=== PATIENT | female | born 1970 | race Caucasian/White ===

== ENCOUNTER → 2016-08-17 | Outpatient (CLI) | payer BC ==
[2016-08-17 08:21] LABS: ABSOLUTE BASOPHILS # (AUTO) 0.1 10^3/uL (0.0-0.2); ABSOLUTE EOSINOPHILS # (AUTO) 0.3 10^3/uL (0.0-0.6); ABSOLUTE LYMPHOCYTES (AUTO) 2.4 10^3/uL (0.5-4.7); ABSOLUTE MONOCYTES (AUTO) 0.5 10^3/uL (0.1-1.4); ABSOLUTE NEUT (AUTO) 5.7 10^3/uL (1.7-8.2); BASOPHILS % (AUTO) 0.6 % (0-2); HEMATOCRIT 44.7 % (36.0-47.0); HEMOGLOBIN 14.4 g/dL (12.0-15.5); HGB HCT DIFFERENCE -1.5; LYMPHOCYTES % (AUTO) 26.8 % (13-45); MEAN CORPUSCULAR HEMOGLOBIN 28.1 pg (27.0-33.4); MEAN CORPUSCULAR HGB CONC 32.3 g/dL (32.0-36.0); MEAN CORPUSCULAR VOLUME 87 fl (80-97); MONOCYTES % (AUTO) 5.6 % (3-13); RED BLOOD COUNT 5.14 10^6/uL (3.72-5.28); RED CELL DISTRIBUTION WIDTH 14.6 % (11.5-14.0); WHITE BLOOD COUNT 8.9 10^3/uL (4.0-10.5)
[2016-08-17 08:36] LABS: ANION GAP 7 (5-19); BLOOD UREA NITROGEN 19 mg/dL (7-20); CALCIUM 9.4 mg/dL (8.4-10.2); CARBON DIOXIDE 27 mmol/L (22-30); CHLORIDE 106 mmol/L (98-107); CHOLESTEROL 125.65 mg/dL (0-200); CREATININE RESULT 0.92 mg/dL (0.52-1.25); Direct HDL 53 mg/dL (>40); GLUCOSE 85 mg/dL (75-110); POTASSIUM 4.6 mmol/L (3.6-5.0); SODIUM 139.7 mmol/L (137-145); TRIGLYCERIDES 175 mg/dL (<150)
[2016-08-17 08:47] LABS: DIRECT LDL 54 mg/dL (<100)
[2016-08-17 09:03] LABS: THYROID STIMULATING HORMONE 1.89 uIU/mL (0.47-4.68)
== END ==
LOC: OD 07:19
PROVIDERS: ATTEND Nurse Practitioner Psychiatric/Mental Health
DX: F25.0 Schizoaffective disorder, bipolar type (principal)
CPT/HCPCS: 36415; 80048; 80061; 83036; 84439; 84443; 85025

== ENCOUNTER → 2016-09-02 | Outpatient (CLI) | payer BC | LOC: OD 12:35 | PROVIDERS: ATTEND Physician Assistant | DX: M25.562 Pain in left knee (principal) ==

== ENCOUNTER 2016-09-14 16:52 | Emergency (ER) | payer BC ==
--- NOTE | 2016-09-14 18:10 | ER Document Report ---
ED Medical Screen (RME) - General Stated Complaint: BLOOD IN STOOL,RIGHT SIDE PAIN Time seen by provider: 18:08 Mode of Arrival: Ambulatory Information source: Patient Notes: 45-year-old female presents to ED for left upper abdominal pain. She had an ultrasound done by her primary physician today at [facility] she states that they she was told she has to cyst on her spleen. He also the primary care doctor also did a rectal exam which was positive for blood. She states that she saw him that the pain is gotten worse. She is also nauseated. Patient denies diarrhea. I have greeted and performed a rapid initial assessment of this patient. A comprehensive ED assessment and evaluation of the patient, analysis of test results and completion of medical decision making process will be conducted by an additional ED providers. TRAVEL OUTSIDE OF THE [place] IN LAST 30 DAYS: No - Related Data Allergies/Adverse Reactions: cephalexin monohydrate [From Keflex] Allergy (Intermediate, Verified 05/30/16 02 :01) DIFFICULTY BREATHING,SUNBURN TYPE RASH lamotrigine [From Lamictal] Allergy (Verified 05/30/16 02:01) UNKNOWN Penicillins Allergy (Verified 05/30/16 02:01) RASH Past Medical History - Past Medical History Cardiac Medical History: Reports: Hx Hypertension - HX OF Denies: Hx Coronary Artery Disease, Hx Heart Attack Pulmonary Medical History: Reports: Hx Asthma, Hx Pneumonia Denies: Hx Bronchitis, Hx COPD, Hx Tuberculosis Neurological Medical History: Denies: Hx Cerebrovascular Accident, Hx Seizures Endocrine Medical History: Reports: Hx Diabetes Mellitus Type 2 Musculoskeltal Medical History: Denies Hx Arthritis Psychiatric Medical History: Reports: Hx Bipolar Disorder, Hx Schizophrenia Past Surgical History: Reports: Hx Cholecystectomy, Hx Gynecologic Surgery - right ovary, Hx Tonsillectomy, Hx Tubal Ligation. Denies: Hx Hysterectomy - Immunizations Hx Diphtheria, Pertussis, Tetanus Vaccination: No Physical Exam - Vital signs Vitals: Temp Pulse Resp BP Pulse Ox 98.1 F 65 20 114/77 98 09/14/16 18:05 09/14/16 18:05 09/14/16 18:05 09/14/16 18:05 09/14/16 18:05 Course - Vital Signs Vital signs: Temp Pulse Resp BP Pulse Ox 98.1 F 65 20 114/77 98 09/14/16 18:05 09/14/16 18:05 09/14/16 18:05 09/14/16 18:05 09/14/16 18:05
[2016-09-14] MEDS ORDERED: ACETAMINOPHEN 325 MG TABLET PO ONE (19:03)
[2016-09-14 20:12] LABS: ABSOLUTE BASOPHILS # (AUTO) 0.1 10^3/uL (0.0-0.2); ABSOLUTE EOSINOPHILS # (AUTO) 0.2 10^3/uL (0.0-0.6); ABSOLUTE LYMPHOCYTES (AUTO) 3.4 10^3/uL (0.5-4.7); ABSOLUTE MONOCYTES (AUTO) 0.6 10^3/uL (0.1-1.4); ABSOLUTE NEUT (AUTO) 5.8 10^3/uL (1.7-8.2); BASOPHILS % (AUTO) 0.5 % (0-2); EOSINOPHILS % (AUTO) 1.7 % (0-6); HEMATOCRIT 44.5 % (36.0-47.0); HEMOGLOBIN 14.7 g/dL (12.0-15.5); HGB HCT DIFFERENCE -0.4; LYMPHOCYTES % (AUTO) 33.9 % (13-45); MEAN CORPUSCULAR HEMOGLOBIN 28.4 pg (27.0-33.4); MEAN CORPUSCULAR VOLUME 86 fl (80-97); MONOCYTES % (AUTO) 6.1 % (3-13); RED BLOOD COUNT 5.16 10^6/uL (3.72-5.28); RED CELL DISTRIBUTION WIDTH 14.1 % (11.5-14.0); SEGMENTED NEUTROPHILS % (AUTO) 57.8 % (42-78); WHITE BLOOD COUNT 10.1 10^3/uL (4.0-10.5)
[2016-09-14 20:29] LABS: APPEARANCE,URINE CLEAR; BILIRUBIN,URINE NEGATIVE (NEGATIVE); GLUCOSE, URINE >=500 mg/dL (NEGATIVE); KETONES,URINE NEGATIVE (NEGATIVE); LEUKOCYTE ESTERASE,URINE NEGATIVE (NEGATIVE); NITRITE,URINE NEGATIVE (NEGATIVE); PROTEIN,URINE NEGATIVE (NEGATIVE); URINE SPECIFIC GRAVITY 1.013; UROBILINOGEN,URINE NEGATIVE mg/dL (<2.0)
[2016-09-14 20:30] LABS: ALANINE AMINOTRANSFERASE 28 U/L (9-52); ALBUMIN 4.4 g/dL (3.5-5.0); ALKALINE PHOSPHATASE 71 U/L (38-126); ANION GAP 13 (5-19); ASPARTATE AMINO TRANSFERASE 21 U/L (14-36); BILIRUBIN,DIRECT 0.3 mg/dL (0.0-0.4); BILIRUBIN,TOTAL 0.8 mg/dL (0.2-1.3); BLOOD UREA NITROGEN 19 mg/dL (7-20); CALCIUM 9.9 mg/dL (8.4-10.2); CARBON DIOXIDE 23 mmol/L (22-30); CHLORIDE 105 mmol/L (98-107); CREATININE RESULT 0.91 mg/dL (0.52-1.25); GLUCOSE 73 mg/dL (75-110); POTASSIUM 4.4 mmol/L (3.6-5.0); SODIUM 141.4 mmol/L (137-145); TOTAL PROTEIN 7.1 g/dL (6.3-8.2)
[2016-09-15] MEDS ORDERED: MAG HYDROX/AL HYDROX/SIMETH SUSP 30 ML UDCUP PO ONE (00:14)
[2016-09-15] MEDS ORDERED: ONDANSETRON 4 MG TAB.RAPDIS PO ONE (00:14)
[2016-09-15] MEDS ORDERED: FAMOTIDINE 20 MG TABLET PO ONE (00:14)
[2016-09-15] MEDS ORDERED: DICYCLOMINE HCL 10 MG CAPSULE PO ONE (00:14)
[2016-09-15] MEDS ORDERED: LIDOCAINE 2% VISCOUS SOLN 20 ML UDCUP PO ONE (00:15)
--- NOTE | 2016-09-15 00:15 | ER Document Report ---
ED General - General Chief Complaint: Abdominal Pain Stated Complaint: BLOOD IN STOOL,RIGHT SIDE PAIN Mode of Arrival: Ambulatory Information source: Patient TRAVEL OUTSIDE OF THE [place] IN LAST 30 DAYS: No - HPI Notes: Patient's a 45-year-old female status post ventral hernia repair February 2016 comes in with report of a 4 month history of abdominal pain left upper quadrant. The patient was seen 3 months ago had a CT scan of the abdomen and pelvis which was negative for the same pain. She saw her regular practitioner today who performed an ultrasound that showed small cysts upon the spleen but was otherwise negative. The patient reports the pain is intermittent and crampy. She is unaware of any specific correlation to meals or 2 bowel movements. She reports no constipation or diarrhea and states her bowel movements are happening daily. She reports no fever or chills she denies any significant back pain she reports no chest pain. - Related Data Allergies/Adverse Reactions: cephalexin monohydrate [From Keflex] Allergy (Intermediate, Verified 09/14/16 18 :09) DIFFICULTY BREATHING,SUNBURN TYPE RASH lamotrigine [From Lamictal] Allergy (Verified 09/14/16 18:09) UNKNOWN Penicillins Allergy (Verified 09/14/16 18:09) RASH Past Medical History - General Information source: Patient - Social History Smoking Status: Never Smoker Chew tobacco use (# tins/day): No Frequency of alcohol use: None Drug Abuse: None Family History: Reviewed & Not Pertinent, DM Patient has suicidal ideation: No Patient has homicidal ideation: No - Past Medical History Cardiac Medical History: Reports: Hx Hypertension - HX OF Denies: Hx Coronary Artery Disease, Hx Heart Attack Pulmonary Medical History: Reports: Hx Asthma, Hx Pneumonia Denies: Hx Bronchitis, Hx COPD, Hx Tuberculosis Neurological Medical History: Denies: Hx Cerebrovascular Accident, Hx Seizures Endocrine Medical History: Reports: Hx Diabetes Mellitus Type 2 Renal/ Medical History: Denies: Hx Peritoneal Dialysis Musculoskeltal Medical History: Denies Hx Arthritis Psychiatric Medical History: Reports: Hx Bipolar Disorder, Hx Schizophrenia Past Surgical History: Reports: Hx Cholecystectomy, Hx Gynecologic Surgery - right ovary, Hx Tonsillectomy, Hx Tubal Ligation. Denies: Hx Hysterectomy - Immunizations Hx Diphtheria, Pertussis, Tetanus Vaccination: No Hx Pneumococcal Vaccination: 04/29/13 Review of Systems - Review of Systems Notes: REVIEW OF SYSTEMS: CONSTITUTIONAL : Denies fever, chills, or sweats. Denies recent illness. EENT: Denies eye, ear, throat, or mouth pain or symptoms. Denies nasal or sinus congestion or discharge. Denies throat, tongue, or mouth swelling or difficulty swallowing. CARDIOVASCULAR: Denies chest pain. Denies palpitations or racing or irregular heart beat. Denies ankle edema. RESPIRATORY: Denies cough, cold, or chest congestion. Denies shortness of breath, difficulty breathing, or wheezing. GASTROINTESTINAL: Denies vomiting, or diarrhea. Denies blood in vomitus, stools , or per rectum. Denies black, tarry stools. Denies constipation. GENITOURINARY: Denies difficulty urinating, painful urination, burning, frequency, blood in urine, or discharge. FEMALE GENITOURINARY: Denies vaginal bleeding, heavy or abnormal periods, irregular periods. Denies vaginal discharge or odor. MUSCULOSKELETAL: Denies back or neck pain or stiffness. Denies joint pain or swelling. SKIN: Denies rash, lesions or sores. HEMATOLOGIC : Denies easy bruising or bleeding. LYMPHATIC: Denies swollen, enlarged glands. NEUROLOGICAL: Denies confusion or altered mental status. Denies passing out or loss of consciousness. Denies dizziness or lightheadedness. Denies headache. Denies weakness or paralysis or loss of use of either side. Denies problems with gait or speech. Denies sensory loss, numbness, or tingling. Denies seizures. PSYCHIATRIC: Denies anxiety or stress. Denies depression, suicidal ideation, or homicidal ideation. ALL OTHER SYSTEMS REVIEWED AND NEGATIVE. Dictation was performed using [employer] voice recognition software Physical Exam - Vital signs Vitals: Temp Pulse Resp BP Pulse Ox 98.1 F 65 20 114/77 98 09/14/16 18:05 09/14/16 18:05 09/14/16 18:05 09/14/16 18:05 09/14/16 18:05 - Notes Notes: PHYSICAL EXAMINATION: GENERAL: Well-appearing, well-nourished and in no acute distress. HEAD: Atraumatic, normocephalic. EYES: Pupils equal round and reactive to light, extraocular movements intact, conjunctiva are normal. ENT: Nares patent, oropharynx clear without exudates. Moist mucous membranes. NECK: Normal range of motion, supple without lymphadenopathy LUNGS: Breath sounds clear to auscultation bilaterally and equal. No wheezes rales or rhonchi. HEART: Regular rate and rhythm without murmurs ABDOMEN: Morbidly obese. Patient has laparoscopy scars which are very well- healed. she describes her pain left upper quadrant, but I can distract her way from the pain with conversation. There is no rebound or guarding no pulsatile mass no gross hepatosplenomegaly. Female : deferred Musculoskeletal: Normal range of motion, no pitting or edema. No cyanosis. NEUROLOGICAL: Cranial nerves grossly intact. Normal speech, normal gait. Normal sensory, motor exams PSYCH: Normal mood, normal affect. SKIN: Warm, Dry, normal turgor, no rashes or lesions noted. Course - Re-evaluation Re-evalutation: 09/15/16 00:18 09/15/16 02:50 Patient given GI cocktail and Pepcid and Bentyl and Zofran with adequate relief of her discomfort. Repeat abdominal exam showed no significant tenderness and she felt stable for discharge. The patient has had CT scan during the time that she has had the pain and the CT scan was negative. I see no utility of performing the CT scan again, when symptoms fit more so with a gastritis that is probably worse and she's had 2 weeks of Mobic anti-inflammatory therapy. She is advised to stop the Mobic. - Vital Signs Vital signs: Temp Pulse Resp BP Pulse Ox 98.1 F 65 20 114/77 98 09/14/16 18:05 09/14/16 18:05 09/14/16 18:05 09/14/16 18:05 09/14/16 18:05 - Laboratory Result Diagrams: 09/14/16 19:45 09/14/16 19:45 Laboratory results interpreted by me: 09/14/16 09/14/16 09/14/16 19:45 19:45 19:45 RDW 14.1 H Glucose 73 L Urine Glucose (UA) >=500 H Discharge - Discharge Clinical Impression: Gastritis Qualifiers: Gastritis type: unspecified gastritis Chronicity: acute Gastritis bleeding: without bleeding Qualified Code(s): K29.00 - Acute gastritis without bleeding Abdominal pain Qualifiers: Abdominal location: left upper quadrant Qualified Code(s): R10.12 - Left upper quadrant pain Disposition: HOME, SELF-CARE Instructions: Abdominal Pain ([facility]), Antispasmodics ([facility]), Antinausea Medication ([facility]) Additional Instructions: Gastritis You have an inflammation of the stomach called gastritis. This commonly causes upper abdominal pain, nausea, and vomiting. In severe cases, bleeding of the stomach lining can occur. Gastritis can be caused by bacteria or viruses , alcohol, or stomach-irritating drugs. Begin with sips of clear liquids. Take increasing amounts of fluid over the first 24 hours. Then start small amounts of bland foods (such as dry toast , applesauce, mashed potato). Gradually resume your usual diet. You should take antacids every two hours until the pain has subsided. Acid -suppressing drugs may be prescribed as well. Avoid aspirin, caffeine, tobacco , and alcohol. If the abdominal pain worsens, or there is evidence of major bleeding in the stomach (such as black, tarry stool, bloody or black vomit, or lightheadedness), you should return immediately. Call the doctor if you aren't improved in 24 to 36 hours. Stop Mobic. Prescriptions: Tramadol HCl 50 mg PO Q4HP PRN #30 tablet PRN Reason: Ondansetron [Zofran Odt 4 mg Tablet] 1 tab PO Q8HP PRN #15 tab.rapdis PRN Reason: For Nausea/Vomiting Dicyclomine HCl [Bentyl 10 mg Capsule] 1 cap PO QIDP PRN #30 cap PRN Reason: Omeprazole 40 mg PO DAILY #30 capsule.
[2016-09-15 03:18] VITALS: BP 110/59
== END 2016-09-15 03:20 | disposition home or self-care (01) ==
LOC: ER 16:52
DX: K29.00 Acute gastritis without bleeding (principal); R10.12 Left upper quadrant pain; E66.01 Morbid (severe) obesity due to excess calories; E11.9 Type 2 diabetes mellitus without complications; Z98.51 Tubal ligation status; Z88.0 Allergy status to penicillin
CPT/HCPCS: 99284; 36415; 82962; 84703; 85025; 80053; 81001; J3490 ×2; S0119

== ENCOUNTER 2016-09-15 13:23 | Emergency (ER) | payer BC ==
--- NOTE | 2016-09-15 13:32 | ER Document Report ---
ED Medical Screen (RME) - General Stated Complaint: STOMACH PAIN Notes: Patient states she was seen yesterday in the emergency room and diagnosed with gastritis. Noticed after bowel movement today, there was blood on the toilet paper. She states she tested positive for blood yesterday on stool sample. Patient complains of continued abdominal pain. Denies fever, + nausea, no vomiting. I have greeted and performed a rapid initial assessment of this patient. A comprehensive ED assessment and evaluation of the patient, analysis of test results and completion of the medical decision making process will be conducted by additional ED providers. TRAVEL OUTSIDE OF THE [place] IN LAST 30 DAYS: No - Related Data Allergies/Adverse Reactions: cephalexin monohydrate [From Keflex] Allergy (Intermediate, Verified 09/15/16 13 :31) DIFFICULTY BREATHING,SUNBURN TYPE RASH lamotrigine [From Lamictal] Allergy (Verified 09/15/16 13:31) UNKNOWN Penicillins Allergy (Verified 09/15/16 13:31) RASH Past Medical History - Past Medical History Cardiac Medical History: Reports: Hx Hypertension - HX OF Denies: Hx Coronary Artery Disease, Hx Heart Attack Pulmonary Medical History: Reports: Hx Asthma, Hx Pneumonia Denies: Hx Bronchitis, Hx COPD, Hx Tuberculosis Neurological Medical History: Denies: Hx Cerebrovascular Accident, Hx Seizures Endocrine Medical History: Reports: Hx Diabetes Mellitus Type 2 Renal/ Medical History: Denies: Hx Peritoneal Dialysis Musculoskeltal Medical History: Denies Hx Arthritis Psychiatric Medical History: Reports: Hx Bipolar Disorder, Hx Schizophrenia Past Surgical History: Reports: Hx Cholecystectomy, Hx Gynecologic Surgery - right ovary, Hx Tonsillectomy, Hx Tubal Ligation. Denies: Hx Hysterectomy - Immunizations Hx Diphtheria, Pertussis, Tetanus Vaccination: No Physical Exam - Vital signs Vitals: Temp Pulse Resp BP Pulse Ox 98.3 F 64 16 109/69 98 09/15/16 13:28 09/15/16 13:28 09/15/16 13:28 09/15/16 13:28 09/15/16 13:28 - Abdominal Inspection: Normal Tenderness: Tender - LUQ Course - Vital Signs Vital signs: Temp Pulse Resp BP Pulse Ox 98.3 F 64 16 109/69 98 09/15/16 13:28 09/15/16 13:28 09/15/16 13:28 09/15/16 13:28 09/15/16 13:28
[2016-09-15 13:54] LABS: ABSOLUTE BASOPHILS # (AUTO) 0.1 10^3/uL (0.0-0.2); ABSOLUTE EOSINOPHILS # (AUTO) 0.2 10^3/uL (0.0-0.6); ABSOLUTE LYMPHOCYTES (AUTO) 2.2 10^3/uL (0.5-4.7); ABSOLUTE MONOCYTES (AUTO) 0.5 10^3/uL (0.1-1.4); ABSOLUTE NEUT (AUTO) 4.6 10^3/uL (1.7-8.2); BASOPHILS % (AUTO) 0.8 % (0-2); EOSINOPHILS % (AUTO) 2.7 % (0-6); HEMATOCRIT 46.9 % (36.0-47.0); HEMOGLOBIN 15.3 g/dL (12.0-15.5); LYMPHOCYTES % (AUTO) 29.2 % (13-45); MEAN CORPUSCULAR HEMOGLOBIN 28.1 pg (27.0-33.4); MEAN CORPUSCULAR HGB CONC 32.7 g/dL (32.0-36.0); MEAN CORPUSCULAR VOLUME 86 fl (80-97); MONOCYTES % (AUTO) 6.9 % (3-13); RED BLOOD COUNT 5.45 10^6/uL (3.72-5.28); RED CELL DISTRIBUTION WIDTH 14.4 % (11.5-14.0); SEGMENTED NEUTROPHILS % (AUTO) 60.4 % (42-78); WHITE BLOOD COUNT 7.6 10^3/uL (4.0-10.5)
[2016-09-15 13:55] LABS: APPEARANCE,URINE CLEAR; BILIRUBIN,URINE NEGATIVE (NEGATIVE); GLUCOSE, URINE >=500 mg/dL (NEGATIVE); KETONES,URINE NEGATIVE (NEGATIVE); LEUKOCYTE ESTERASE,URINE NEGATIVE (NEGATIVE); NITRITE,URINE NEGATIVE (NEGATIVE); PROTEIN,URINE NEGATIVE (NEGATIVE); URINE SPECIFIC GRAVITY 1.003; UROBILINOGEN,URINE NEGATIVE mg/dL (<2.0)
[2016-09-15 14:12] LABS: ALANINE AMINOTRANSFERASE 32 U/L (9-52); ALBUMIN 4.5 g/dL (3.5-5.0); ALKALINE PHOSPHATASE 71 U/L (38-126); ANION GAP 13 (5-19); ASPARTATE AMINO TRANSFERASE 26 U/L (14-36); BILIRUBIN,DIRECT 0.3 mg/dL (0.0-0.4); BILIRUBIN,TOTAL 0.8 mg/dL (0.2-1.3); BLOOD UREA NITROGEN 16 mg/dL (7-20); CALCIUM 9.9 mg/dL (8.4-10.2); CARBON DIOXIDE 23 mmol/L (22-30); CHLORIDE 107 mmol/L (98-107); CREATININE RESULT 0.99 mg/dL (0.52-1.25); GLUCOSE 95 mg/dL (75-110); LIPASE 177.2 U/L (23-300); POTASSIUM 4.7 mmol/L (3.6-5.0); SODIUM 142.6 mmol/L (137-145); TOTAL PROTEIN 7.2 g/dL (6.3-8.2)
[2016-09-15] MEDS ORDERED: NORMAL SALINE 1000 ML 1,000 ML IV ONE (17:13)
--- NOTE | 2016-09-15 17:29 | ER Document Report ---
ED GI/ - General Chief Complaint: Abdominal Pain Stated Complaint: STOMACH PAIN Mode of Arrival: Ambulatory Information source: Patient Notes: Patient presents complaining of left upper quadrant abdominal pain off and on daily since April of last year. Patient states pain became constant over the past week. Patient states she saw her primary doctor yesterday and had an outpatient positive Hemoccult test and had an outpatient ultrasound which showed cyst on her spleen. Patient was advised to come to the emergency department for further evaluation. Patient was seen yesterday in the emergency department and was discharged with prescriptions for tramadol and Zofran. Patient states that her abdominal pain worsened today and she noticed blood on the toilet paper after wiping after a bowel movement today. Patient does report some nausea but denies any vomiting or fever. Patient denies any aggravating or alleviating factors. TRAVEL OUTSIDE OF THE [place] IN LAST 30 DAYS: No - HPI Patient complains to provider of: Abdominal pain. No: Pelvic pain, Vomiting Onset: Other - Daily off and on since April last , constant over the past week Timing/Duration: Constant Quality of pain: Achy Pain Level: 3 Location: LUQ Vaginal bleeding (Compared to normal period): None Sexual history: Active Associated symptoms: Blood in stool, Nausea. denies: Dizzy, Dysuria, Fever, Urinary hesitancy, Urinary frequency, Urinary urgency, Vaginal discharge, Vomiting Exacerbated by: Denies Relieved by: Denies Similar symptoms previously: Yes Recently seen / treated by doctor: Yes - Related Data Allergies/Adverse Reactions: cephalexin monohydrate [From Keflex] Allergy (Intermediate, Verified 09/15/16 13 :31) DIFFICULTY BREATHING,SUNBURN TYPE RASH lamotrigine [From Lamictal] Allergy (Verified 09/15/16 13:31) UNKNOWN Penicillins Allergy (Verified 09/15/16 13:31) RASH Past Medical History - General Information source: Patient - Social History Smoking Status: Never Smoker Chew tobacco use (# tins/day): No Frequency of alcohol use: None Drug Abuse: None Occupation: none Lives with: Family Family History: Reviewed & Not Pertinent, DM Patient has suicidal ideation: No Patient has homicidal ideation: No - Past Medical History Cardiac Medical History: Reports: Hx Hypertension - HX OF Denies: Hx Coronary Artery Disease, Hx Heart Attack Pulmonary Medical History: Reports: Hx Asthma, Hx Pneumonia Denies: Hx Bronchitis, Hx COPD, Hx Tuberculosis Neurological Medical History: Denies: Hx Cerebrovascular Accident, Hx Seizures Endocrine Medical History: Reports: Hx Diabetes Mellitus Type 2 Renal/ Medical History: Denies: Hx Peritoneal Dialysis Musculoskeltal Medical History: Denies Hx Arthritis Psychiatric Medical History: Reports: Hx Bipolar Disorder, Hx Schizophrenia Past Surgical History: Reports: Hx Cholecystectomy, Hx Gynecologic Surgery - right ovary, Hx Tonsillectomy, Hx Tubal Ligation. Denies: Hx Hysterectomy - Immunizations Hx Diphtheria, Pertussis, Tetanus Vaccination: No Hx Pneumococcal Vaccination: 04/29/13 Review of Systems - Review of Systems Constitutional: No symptoms reported. denies: Fever EENT: No symptoms reported Cardiovascular: No symptoms reported. denies: Chest pain Respiratory: No symptoms reported. denies: Cough, Short of breath Gastrointestinal: Abdominal pain, Nausea, Other - Blood on toilet paper with bowel movement. denies: Diarrhea, Vomiting, Poor appetite, Poor fluid intake Genitourinary: No symptoms reported. denies: Dysuria, Flank pain Female Genitourinary: No symptoms reported. denies: , Vaginal discharge , Vaginal bleeding Musculoskeletal: No symptoms reported. denies: Back pain Skin: No symptoms reported Hematologic/Lymphatic: No symptoms reported Neurological/Psychological: No symptoms reported Physical Exam - Vital signs Vitals: Temp Pulse Resp BP Pulse Ox 98.3 F 64 16 109/69 98 09/15/16 13:28 09/15/16 13:28 09/15/16 13:28 09/15/16 13:28 09/15/16 13:28 - General General appearance: Appears well, Alert In distress: None Notes: PHYSICAL EXAMINATION: GENERAL: Well-appearing, obese and in no acute distress. HEAD: Atraumatic, normocephalic. EYES: sclera anicteric, conjunctiva are normal. ENT: nares patent. Moist mucous membranes. NECK: Normal range of motion, supple without lymphadenopathy LUNGS: CTAB and equal. No wheezes rales or rhonchi. HEART: Regular rate and rhythm without murmurs ABDOMEN: Soft, left upper quadrant tenderness, normal bowel sounds, no guarding. EXTREMITIES: Normal range of motion, no pitting edema. No cyanosis. BACK: No midline tenderness, no step-off or deformity. No CVA tenderness NEUROLOGICAL: Cranial nerves grossly intact. Normal speech. Normal gait. PSYCH: Normal mood, normal affect. SKIN: Warm, Dry, normal turgor, no rashes or lesions noted - Rectal Tenderness: No Hemorrhoids: None. No: Internal, External Course - Re-evaluation Re-evalutation: 09/15/16 17:[address] Waller regarding patient presentation, repeat ER visit and diagnostic evaluation. Recommends rectal examination as well as CT scan imaging with IV contrast. 09/15/16 19:58 Patient resting comfortably on stretcher. Patient with only mild tenderness to left side of abdomen. Discuss results of patient's CT report as well as her diagnostic tests with patient and her spouse. Patient encouraged to follow-up with her primary doctor for recheck as well as a apartment rental agent for further evaluation. Patient advised that her Hemoccult did test positive again today. Patient verbalized understanding and agrees with plan of care. Patient presents with abdominal pain without signs of peritonitis or other life- threatening or serious etiology. Patient appears stable for discharge and has been instructed to return immediately if the symptoms worsen in any way, or if not improved for reevaluation. The patient has been instructed to return if the symptoms worsen or change in any way. - Vital Signs Vital signs: Temp Pulse Resp BP Pulse Ox 98.3 F 64 16 109/69 98 09/15/16 13:28 09/15/16 13:28 09/15/16 16:49 09/15/16 13:28 09/15/16 13:28 - Laboratory Result Diagrams: 09/15/16 13:40 09/15/16 13:40 Laboratory results interpreted by me: 09/15/16 09/15/16 13:40 13:40 RBC 5.45 H RDW 14.4 H Urine Glucose (UA) >=500 H 09/15/16 19:59 Labs- Entire Visit 09/15/16 09/15/16 09/15/16 13:40 13:40 13:40 WBC 7.6 RBC 5.45 H Hgb 15.3 Hct 46.9 MCV 86 MCH 28.1 MCHC 32.7 RDW 14.4 H Plt Count 284 Seg Neutrophils % 60.4 Lymphocytes % 29.2 Monocytes % 6.9 Eosinophils % 2.7 Basophils % 0.8 Absolute Neutrophils 4.6 Absolute Lymphocytes 2.2 Absolute Monocytes 0.5 Absolute Eosinophils 0.2 Absolute Basophils 0.1 Sodium 142.6 Potassium 4.7 Chloride 107 Carbon Dioxide 23 Anion Gap 13 BUN 16 Creatinine 0.99 Est GFR ( Amer) > 60 Est GFR (Non-Af Amer) > 60 Glucose 95 Calcium 9.9 Total Bilirubin 0.8 Direct Bilirubin 0.3 Indirect Bilirubin Not Reportable Neonat Total Bilirubin Not Reportable AST 26 ALT 32 Alkaline Phosphatase 71 Total Protein 7.2 Albumin 4.5 Lipase 177.2 Urine Color STRAW Urine Appearance CLEAR Urine pH 7.0 Ur Specific [place] 1.003 Urine Protein NEGATIVE Urine Glucose (UA) >=500 H Urine Ketones NEGATIVE Urine Blood NEGATIVE Urine Nitrite NEGATIVE Urine Bilirubin NEGATIVE Urine Urobilinogen NEGATIVE Ur Leukocyte Esterase NEGATIVE Urine WBC (Auto) 0 Squamous Epi Cells Auto <1 Urine Ascorbic Acid NEGATIVE Urine HCG, Qual Gastric Occult Blood Stool Occult Blood 09/15/16 09/15/16 09/15/16 13:40 17:25 17:25 WBC RBC Hgb Hct MCV MCH MCHC RDW Plt Count Seg Neutrophils % Lymphocytes % Monocytes % Eosinophils % Basophils % Absolute Neutrophils Absolute Lymphocytes Absolute Monocytes Absolute Eosinophils Absolute Basophils Sodium Potassium Chloride Carbon Dioxide Anion Gap BUN Creatinine Est GFR ( Amer) Est GFR (Non-Af Amer) Glucose Calcium Total Bilirubin Direct Bilirubin Indirect Bilirubin Neonat Total Bilirubin AST ALT Alkaline Phosphatase Total Protein Albumin Lipase Urine Color Urine Appearance Urine pH Ur Specific [place] Urine Protein Urine Glucose (UA) Urine Ketones Urine Blood Urine Nitrite Urine Bilirubin Urine Urobilinogen Ur Leukocyte Esterase Urine WBC (Auto) Squamous Epi Cells Auto Urine Ascorbic Acid Urine HCG, Qual NEGATIVE Gastric Occult Blood Cancelled Stool Occult Blood POSITIVE - Diagnostic Test Radiology reviewed: Reports reviewed Discharge - Discharge Clinical Impression: Positive fecal occult blood test Abdominal pain Qualifiers: Abdominal location: left upper quadrant Qualified Code(s): R10.12 - Left upper quadrant pain Condition: Stable Disposition: HOME, SELF-CARE Instructions: Abdominal Pain ([facility]), Rectal Bleeding, Unclear Cause ([facility]) Additional Instructions: Return immediately for any new or worsening symptoms Followup with your primary care provider, call tomorrow to make a followup appointment Follow up with a apartment rental agent for further evaluation. You may need a colonoscopy as well as upper GI test. Take the medications that you're prescribed yesterday as directed. Referrals: JESSICA KELLY MD [Primary Care Provider] - Follow up tomorrow NEFTALI YANEZ MD [ACTIVE STAFF] - Follow up in 3-5 days
[2016-09-15 20:34] VITALS: BP 110/62
== END 2016-09-15 20:33 | disposition home or self-care (01) ==
LOC: ER 13:23
DX: K29.00 Acute gastritis without bleeding (principal); R10.12 Left upper quadrant pain; R19.5 Other fecal abnormalities
CPT/HCPCS: 36415; 74177; 80053; 81001; 81025; 82272; 83690; 85025; 99284

== ENCOUNTER 2016-09-21 10:28 | Day surgery (SDC) | payer BC ==
[~2016-09-21 10:28] MED LIST: PROPOFOL INJ 200 MG/20 ML VIAL IV ONE
--- NOTE | 2016-09-21 12:59 | Operative Report ---
Operative Report DATE OF SURGERY: 09/21/16 Operative Report: The risks, benefits and alternatives of the procedure including risks of bleeding, perforation requiring surgery are explained to the patient in detail and informed consent is obtained. Patient is taken back to the endoscopy suite and placed in a left, lateral decubital position. Timeout is called. Propofol medication is administered. A rectal examination was done which did not reveal any masses, tears or fissures. An Olympus videoscope was inserted into the patient's rectum. It is carefully advanced all the way to the cecum. The cecum was identified by the usual anatomical landmarks including the ileocecal valve as well as the appendiceal office. Photodocumentation was obtained. Prep is good. Except on the right side of the colon. The scope was then sequentially pulled back via the rest segments of the colon including the ascending colon, hepatic flexure, transverse colon, splenic flexure, descending colon and finally into the rectosigmoid portions of the colon. Retroflexion maneuvers performed. The risks benefits and alternatives of the procedure explained to the patient in detail and informed consent is obtained that GIF Olympus video scope was inserted into the patient's mouth and hypopharynx the esophagus is identified intubated and insufflated the scope was then advanced through the esophagus stomach and duodenum retroflexion maneuver is done the esophagus stomach and first and second portions of the duodenum examined PREOPERATIVE DIAGNOSIS: Epigastric pain. Blood in the stool POSTOPERATIVE DIAGNOSIS: Severe gastritis. Duodenitis. Right-sided inflammation. Internal hemorrhoids. No ulcers noted OPERATION: Colonoscopy with biopsy. EGD with biopsy SURGEON: NEFTALI YANEZ ANESTHESIA: LMAC TISSUE REMOVED OR ALTERED: Gastric specimen obtained rule out Helicobacter pylori. By colon mucosal specimen obtained rule out lymphocytic, microscopic, collagenous colitis. COMPLICATIONS: None. ESTIMATED BLOOD LOSS: none. INTRAOPERATIVE FINDINGS: As described above. PROCEDURE: Patient tolerated the procedure well. No immediate postprocedure complications are noted. Patient is discharged in good condition. Discharge date 09/21/2016. Discharge diet: Regular. Discharge activity: Regular. 2-3 week follow-up to discuss findings. Patient is instructed to call the office or proceed to the emergency room should there be any further problems or questions. We'll await on biopsies.
[2016-09-21 13:26] VITALS: BP 109/83
== END 2016-09-21 13:26 | disposition home or self-care (01) ==
LOC: END 10:28
PROVIDERS: ATTEND Internal Medicine Gastroenterology
PROC: 0DBF8ZX Excision of Right Large Intestine, Via Natural or Artificial Opening Endoscopic, Diagnostic (ICD-10-PCS; 2016-09-21)
PROC: 0DB68ZX Excision of Stomach, Via Natural or Artificial Opening Endoscopic, Diagnostic (ICD-10-PCS; principal; 2016-09-21 13:30)
PROC: 0DB58ZX Excision of Esophagus, Via Natural or Artificial Opening Endoscopic, Diagnostic (ICD-10-PCS; 2016-09-21 13:30)
DX: K92.1 Melena (principal); R10.13 Epigastric pain; K29.50 Unspecified chronic gastritis without bleeding; K29.80 Duodenitis without bleeding; K52.9 Noninfective gastroenteritis and colitis, unspecified; K64.8 Other hemorrhoids; I10 Essential (primary) hypertension; E11.9 Type 2 diabetes mellitus without complications; E78.5 Hyperlipidemia, unspecified; J44.9 Chronic obstructive pulmonary disease, unspecified; Z87.891 Personal history of nicotine dependence; F20.9 Schizophrenia, unspecified
CPT/HCPCS: 43239; 45380; 82962; 88342 ×2; 88305 ×2; J2704; 740

== ENCOUNTER → 2016-10-09 | Outpatient (CLI) | payer BC ==
[2016-10-09 09:42] LABS: ALANINE AMINOTRANSFERASE 30 U/L (9-52); ALKALINE PHOSPHATASE 67 U/L (38-126); ASPARTATE AMINO TRANSFERASE 22 U/L (14-36); BILIRUBIN,DIRECT 0.1 mg/dL (0.0-0.4); BILIRUBIN,TOTAL 0.7 mg/dL (0.2-1.3); CHOLESTEROL 94.57 mg/dL (0-200); Direct HDL 46 mg/dL (>40); TRIGLYCERIDES 106 mg/dL (<150)
[2016-10-09 09:54] LABS: DIRECT LDL 38 mg/dL (<100)
== END ==
LOC: OD 08:34
PROVIDERS: ATTEND Specialist
DX: R07.9 Chest pain, unspecified (principal); R01.1 Cardiac murmur, unspecified; I10 Essential (primary) hypertension; E11.9 Type 2 diabetes mellitus without complications; E78.5 Hyperlipidemia, unspecified; E66.9 Obesity, unspecified; R94.30 Abnormal result of cardiovascular function study, unspecified; Z01.810 Encounter for preprocedural cardiovascular examination; Z79.899 Other long term (current) drug therapy
CPT/HCPCS: 36415; 80061; 80076; 83036

== ENCOUNTER → 2016-11-10 | Outpatient (CLI) | payer BC | LOC: OD 12:18 | PROVIDERS: ATTEND Physician Assistant | DX: M79.671 Pain in right foot (principal); M77.51 Other enthesopathy of right foot and ankle ==

== ENCOUNTER → 2016-11-16 | Outpatient (CLI) | payer BC | LOC: OD 13:46 | PROVIDERS: ATTEND Physician Assistant | DX: M25.562 Pain in left knee (principal) ==

== ENCOUNTER → 2016-11-21 | Outpatient (CLI) | payer BC ==
--- NOTE | 2016-11-21 17:35 | RADIOLOGY REPORT (SQ) ---
EXAM DESCRIPTION: MRI LT LOWER JOINT WITHOUT COMPLETED DATE/TIME: 11/21/2016 10:03 am REASON FOR STUDY: PAIN IN LEFT KNEE M25.562 PAIN IN LEFT KNEE COMPARISON: Left knee films 11/16/2016 TECHNIQUE: Leftknee images acquired and stored on PACS. Multiplanar images include fat sensitive se quences as T1, water sensitive sequences as FST2 or STIR, cartilage sensitive sequences as FSPD, and gradient echo sequences. LIMITATIONS: Large patient FINDINGS: JOINT AND BURSAE: No significant suprapatellar knee joint effusion. No Landaverde's cyst. Sma ll amount of fluid in the proximal tibiofibular joint. BONE CORTEX AND MARROW: No alteration of signal to suggest marrow replacement. No worrisome bone lesi ons. No occult fracture. ACL: Cystic changes within the anterior cruciate ligament with an intact anterior band, best shown on axial images 8-12, sagittal image 13 PCL: Intact. MCL: Intact. No periligamentous edema or fluid. LCL: Intact. No periligamentous edema or fluid. MEDIAL MENISCUS: Diffusely abnormal marrow signal throughout the mid body and posterior horn medial m eniscus worrisome for tear, best shown on coronal images 14-19 and sagittal images 4-8. LATERAL MENISCUS: No tears. No abnormal signal. MEDIAL COMPARTMENT: Very mild chondromalacia. No bone bruises or reactive marrow edema. Small osteop hytes. LATERAL COMPARTMENT: Very mild chondromalacia. No bone bruises or reactive marrow edema. Small osteo phytes. PATELLA: Moderate chondromalacia lateral patellar facet with mild subcortical edema. Medial and late ral retinacula intact. EXTENSOR MECHANISM: Intact. Quadriceps and patella tendons normal. SOFT TISSUES: Adjacent muscles and subcutaneous tissues normal. Normal flow void in popliteal artery and vein. OTHER: No other significant finding. IMPRESSION: Cystic change in the ACL Diffusely abnormal increased signal throughout the mid body and posterior horn medial meniscus for te ar. No parameniscal cyst. Patellofemoral compartment chondromalacia TECHNICAL DOCUMENTATION: JOB ID: [id number] [employer]- All Rights Reserved
== END ==
LOC: RAD 09:04
PROVIDERS: ATTEND Physician Assistant
DX: M25.562 Pain in left knee (principal); M22.42 Chondromalacia patellae, left knee

== ENCOUNTER 2017-02-04 23:22 | Emergency (ER) | payer BC ==
--- NOTE | 2017-02-05 00:30 | RADIOLOGY REPORT (SQ) ---
EXAM DESCRIPTION: CHEST PA/LAT COMPLETED DATE/TIME: 02/05/2017 12:20 am REASON FOR STUDY: productive cough COMPARISON: None. EXAM PARAMETERS: NUMBER OF VIEWS: two views TECHNIQUE: Digital Frontal and Lateral radiographic views of the chest acquired. RADIATION DOSE: NA LIMITATIONS: none FINDINGS: LUNGS AND PLEURA: No opacities, masses or pneumothorax. No pleural effusion. Prominent in terstitium, chronic. MEDIASTINUM AND HILAR STRUCTURES: No masses or contour abnormalities. HEART AND VASCULAR STRUCTURES: Heart normal size. No evidence for failure. BONES: No acute findings. HARDWARE: Right upper abdominal clips. OTHER: No other significant finding. IMPRESSION: No acute cardiopulmonary findings. TECHNICAL DOCUMENTATION: JOB ID: [id number] [employer]- All Rights Reserved
--- NOTE | 2017-02-05 01:37 | ER Document Report ---
ED Respiratory Problem - General Mode of Arrival: Ambulatory Information source: Patient, Relative - spouse TRAVEL OUTSIDE OF THE [place] IN LAST 30 DAYS: No - HPI Onset: Other - Refer to HPI notes Similar symptoms previously: No Recently seen / treated by doctor: No - General Chief Complaint: Productive Cough Stated Complaint: COUGHING UP GREEN PHELM Time Seen by Provider: 02/05/17 01:30 - HPI Notes: Patient is a 46 year old female presenting to the emergency department for productive cough and green sputum. Patient also has some middle upper back pain. Patient denies any chest pain. Patient had knee surgery on Wednesday. Patient denies any fevers. Patient states she has had sputum x5 today. Patient had 2 pins placed in her left knee along with a meniscectomy and also had some arthritis removed. Patient does not smoke. PCP Dr. Dykes ([facility]) - Related Data Allergies/Adverse Reactions: cephalexin monohydrate [From Keflex] Allergy (Intermediate, Verified 09/21/16 11 :10) DIFFICULTY BREATHING,SUNBURN TYPE RASH lamotrigine [From Lamictal] Allergy (Verified 09/21/16 11:10) UNKNOWN Penicillins Allergy (Verified 09/21/16 11:10) RASH Past Medical History - General Information source: Patient - Social History Smoking Status: Never Smoker Cigarette use (# per day): No Chew tobacco use (# tins/day): No Frequency of alcohol use: None Drug Abuse: None Family History: DM Patient has suicidal ideation: No Patient has homicidal ideation: No - Past Medical History Cardiac Medical History: Reports: Hx Hypertension - Tx Pulmonary Medical History: Reports: Hx Asthma - Neb & Inhaler, Hx Pneumonia Endocrine Medical History: Reports: Hx Diabetes Mellitus Type 2 Musculoskeltal Medical History: Denies Hx Arthritis Psychiatric Medical History: Reports: Hx Bipolar Disorder, Hx Schizophrenia Past Surgical History: Reports: Hx Cholecystectomy, Hx Gynecologic Surgery - right ovary, Hx Tonsillectomy, Hx Tubal Ligation - Immunizations Hx Diphtheria, Pertussis, Tetanus Vaccination: No Hx Pneumococcal Vaccination: 04/29/13 Review of Systems - Review of Systems Constitutional: No symptoms reported EENT: No symptoms reported Cardiovascular: No symptoms reported Respiratory: See HPI, Cough, Sputum Gastrointestinal: No symptoms reported Genitourinary: No symptoms reported Female Genitourinary: No symptoms reported Musculoskeletal: See HPI, Back pain Skin: No symptoms reported Hematologic/Lymphatic: No symptoms reported Neurological/Psychological: No symptoms reported -: Yes All other systems reviewed and negative Physical Exam - Vital signs Interpretation: Hypertensive - Vital signs Vitals: Temp Pulse Resp BP Pulse Ox 97.9 F 59 L 18 140/96 H 96 02/04/17 23:32 02/04/17 23:32 02/04/17 23:32 02/04/17 23:32 02/04/17 23:32 - Notes Notes: GENERAL: Alert, interacts well. No acute distress. HEAD: Normocephalic, atraumatic. EYES: Appear normal. Pupils equal, round, and reactive to light. ENT: Moist mucus membranes, tongue midline, clear oropharynx. NECK: Full range of motion. Supple. Trachea midline. LUNGS: Clear to auscultation bilaterally, no wheezes, rales, or rhonchi. Productive cough. No respiratory distress. HEART: Regular rate and rhythm. No murmurs, gallops, or rubs. ABDOMEN: Obese. Soft, non-tender. Non-distended. Normal bowel sounds. EXTREMITIES: Moves all 4 extremities spontaneously. Normal strength. No edema. Left leg/knee is wrapped in mony bandage. NEUROLOGICAL: Alert and oriented x3. Normal speech. No focal neurological deficits. GSC 15. PSYCH: Normal affect, normal mood. SKIN: Warm, dry, normal turgor. No rashes or lesions noted. (MARCK LEIVA) Discharge - Discharge Clinical Impression: Bronchitis after surgery Condition: Stable Disposition: HOME, SELF-CARE Additional Instructions: Bronchitis: You have acute bronchitis. This disease is an infection or inflammation of the air passageways in your lungs. Symptoms usually include cough, low grade fever, shortness of breath, and wheezing. The cough usually persists for a couple of weeks. Most cases of bronchitis get better without antibiotics. We prescribe antibiotics when we believe bacteria are damaging your airways, or if there's high risk the bronchitis will worsen into pneumonia. Increase your fluid intake. A cool mist humidifier may make your lungs more comfortable. An expectorant (cough medicine that loosens phlegm) can help. If you smoke, STOP!!! Recovery from bronchitis can be somewhat slow, but you should see improvement within a day or two. Repeated episodes of bronchitis may result in lung damage -- for example, chronic bronchitis, recurrent pneumonias, or emphysema. Call the doctor if you develop increasing fever, shortness of breath, chest pain, bloody sputum, or otherwise worsen. If you have not improved at all after several days, contact the physician. START THE ANTIBIOTIC ON WEDNESDAY MORNING. DRINK PLENTY OF FLUIDS. REST. FOLLOWUP WITH YOUR DOCTOR IF NOT IMPROVING. RETURN TO THE EMERGENCY ROOM IF ANY NEW OR WORSENING SYMPTOMS. Prescriptions: Azithromycin [Zithromax 250 mg Tablet] 250 mg PO DAILY #4 tablet Scribe Attestation: 02/05/17 01:52 I personally performed the services described in the documentation, reviewed and edited the documentation which was dictated to the scribe in my presence, and it accurately records my words and actions. (LUCERO BROWNE) Scribe Documentation - Scribe Written by Vijay:: Vijay Iraheta 02/05/17 1:37 acting as scribe for :: Isabel
[2017-02-05] MEDS ORDERED: AZITHROMYCIN 250 MG TABLET PO ONE (01:52)
[2017-02-05 02:13] VITALS: BP 127/67
== END 2017-02-05 02:21 | disposition home or self-care (01) ==
LOC: ER 23:22
DX: J40 Bronchitis, not specified as acute or chronic (principal); R05 Cough; I10 Essential (primary) hypertension; M54.89 Other dorsalgia; J45.909 Unspecified asthma, uncomplicated; E11.9 Type 2 diabetes mellitus without complications; Z98.890 Other specified postprocedural states; Z88.1 Allergy status to other antibiotic agents; Z88.0 Allergy status to penicillin; Z88.8 Allergy status to other drugs, medicaments and biological substances
CPT/HCPCS: 71020; 99283

== ENCOUNTER → 2017-03-22 | Outpatient (CLI) | payer BC ==
[2017-03-22 08:58] LABS: ALANINE AMINOTRANSFERASE 30 U/L (9-52); ALBUMIN 4.1 g/dL (3.5-5.0); ALKALINE PHOSPHATASE 78 U/L (38-126); ASPARTATE AMINO TRANSFERASE 23 U/L (14-36); BILIRUBIN,DIRECT 0.4 mg/dL (0.0-0.4); BILIRUBIN,TOTAL 0.6 mg/dL (0.2-1.3); CHOLESTEROL 112.63 mg/dL (0-200); Direct HDL 47 mg/dL (>40); TOTAL PROTEIN 6.5 g/dL (6.3-8.2); TRIGLYCERIDES 184 mg/dL (<150)
[2017-03-22 09:08] LABS: DIRECT LDL 49 mg/dL (<100)
[2017-03-22 09:18] LABS: VLDL CHOLESTEROL 36.8 mg/dL (10-31)
== END ==
LOC: OD 07:25
PROVIDERS: ATTEND Specialist
DX: R07.9 Chest pain, unspecified (principal); R01.1 Cardiac murmur, unspecified; I10 Essential (primary) hypertension; E11.9 Type 2 diabetes mellitus without complications; E66.9 Obesity, unspecified; E78.5 Hyperlipidemia, unspecified; F31.31 Bipolar disorder, current episode depressed, mild; R94.30 Abnormal result of cardiovascular function study, unspecified; Z79.899 Other long term (current) drug therapy
CPT/HCPCS: 36415; 80061; 80076; 83036

== ENCOUNTER → 2017-04-20 | Outpatient (CLI) | payer BC ==
--- NOTE | 2017-04-20 16:06 | EEG PRO FEE REPORT ---
EEG INTERPRETATION PATIENT NAME: ROMARIO SORIA ROOM#: ORDER#: [id number] DATE OF STUDY: 04/20/2017 : 1970 REFERRING MD: RASHAAD SMITH M.D. DIAGNOSIS: Tremors unspecified REPORT This is a 46 year old female. EEG video is reviewed during the tracing no abnormal movements or epileptiform activity is seen. The background initially is 8-9 Hz alpha of medium voltage; the record does attenuate as the patient becomes drowsy no focal slowing amplitude asymmetry epileptiform or other parieto-occipital discharges are seen. FINAL IMPRESSION: Normal wake and drowsy EEG for age INTERPRETING PHYSICIAN: LINDSEY MILNER M.D. /: MTEFFT TT: [id number] ID: [id number] /: [id number] TD: [id number] JOB: [id number] cc:Cinthya BURGOS M.D. >
== END ==
LOC: NEURO 08:07
PROVIDERS: ATTEND Pediatrics
DX: R25.1 Tremor, unspecified (principal); R26.89 Other abnormalities of gait and mobility
CPT/HCPCS: 95819

== ENCOUNTER → 2017-05-11 | Outpatient (CLI) | payer BC ==
--- NOTE | 2017-05-11 12:46 | WOMENS IMAGING REPORT ---
EXAM DESCRIPTION: BILAT DIAGNOSTIC MAMMO W/CAD COMPLETED DATE/TIME: 05/11/2017 8:35 am REASON FOR STUDY: NIPPLE DISCHARGE; N64.52 N64.52 NIPPLE DISCHARGE COMPARISON: March 2016 TECHNIQUE: Standard craniocaudal and mediolateral oblique views of each breast recorded using digita l acquisition. A true lateral view of the right breast was obtained. LIMITATIONS: None. FINDINGS: RIGHT BREAST MASSES: No suspicious masses. CALCIFICATIONS: No new or suspicious calcifications. ARCHITECTURAL DISTORTION: None. DEVELOPING DENSITY: None. ASYMMETRY: None noted. OTHER: Do the patient's clinical history ultrasound will be obtained for further evaluation. LEFT BREAST MASSES: No suspicious masses. CALCIFICATIONS: No new or suspicious calcifications. ARCHITECTURAL DISTORTION: None. DEVELOPING DENSITY: None. ASYMMETRY: None noted. OTHER: No other significant finding. Read with the assistance of CAD: .[facility] - R2 Cenova Version 1.3 .[facility] - R2 Cenova Version 1.3 .[facility] - R2 Cenova Version 2.4 .[facility] - R2 Cenova Version 2.4 .[facility] - R2 Checker Dump Grounds Version 9.2 BREAST ULTRASOUND: TECHNIQUE: Static and dynamic grayscale images acquired of the right breast in the specific areas of clinical/mammographic concern. Selected color Doppler images recorded. ELASTOGRAPHY PERFORMED: No. LIMITATIONS: None. FINDINGS: MASS: No mass identified. Normal glandular tissue. ELASTOGRAPHY CHARACTERISTICS: Not applicable. OTHER: No other significant finding. IMPRESSION: No significant findings BREAST DENSITY: b. There are scattered areas of fibroglandular density. BIRAD: 2 Benign findings. RECOMMENDATION: RECOMMENDED FOLLOW UP: Recommend clinical followup. SPECIFIC INTERVENTION/IMAGING/CONSULTATION RECOMMENDED:Based on clinical presentation, consider galac tography. COMMUNICATION:The imaging findings were not discussed with the patient. Her referring provider has be en notified of the findings. COMMENT: The patient has been notified of the results by letter per SA requirements. Additional no tification policies are in place for contacting patient with suspicious or incomplete findings. Quality ID #[id number]: The [employer] recommends an annual screening mammogram for women aged 40 years or over. This facility utilizes a reminder system to ensure that all patients receive reminder letters, and/or direct phone calls for appointments. This includes reminders for routine scr eening mammograms, diagnostic mammograms, or other Breast Imaging Interventions when appropriate. Th is patient will be placed in the appropriate reminder system. The [employer] (ACR) has developed recommendations for screening MRI of the breast s in certain patient populations, to be used in conjunction with mammography. Breast MRI surveillanc e may be appropriate for women with more than 20% lifetime risk of developing breast cancer as deter mined by genetic testing, significant family history of the disease, or history of mantle radiation f or Hodgkins Disease. ACR Practice Guidelines 2008. TECHNICAL DOCUMENTATION: FINDING NUMBER: (1) ASSESSMENT: (1) JOB ID: [id number] [employer]- All Rights Reserved
--- NOTE | 2017-05-11 12:47 | WOMENS IMAGING REPORT ---
EXAM DESCRIPTION: U/S BREAST UNILAT LIMITED COMPLETE DATE/TIME: 05/11/2017 9:01 am REASON FOR STUDY: RT NIPPLE DISCHARG,N64.52 N64.52 NIPPLE DISCHARGE FINDINGS: Please see combined report for performance of procedure and radiologic supervision and int erpretation. IMPRESSION: Please see combined report for performance of procedure and radiologic supervision and i nterpretation.
== END ==
LOC: WI 08:20
PROVIDERS: ATTEND Physician Assistant
DX: N64.52 Nipple discharge (principal)
CPT/HCPCS: 76642; G0204; 77066

== ENCOUNTER → 2017-06-09 | Outpatient (CLI) | payer BC ==
--- NOTE | 2017-06-09 13:06 | RADIOLOGY REPORT (SQ) ---
EXAM DESCRIPTION: ACUTE ABDOMEN SERIES COMPLETED DATE/TIME: 06/09/2017 12:57 pm REASON FOR STUDY: GENERALIZED ABDOMINAL PAIN R10.84 GENERALIZED ABDOMINAL PAIN COMPARISON: Two-view chest 02/05/2017 CT abdomen pelvis 09/15/2016 NUMBER OF VIEWS: Three views. TECHNIQUE: Frontal chest, supine abdomen and upright abdomen radiographic images acquired. LIMITATIONS: None. FINDINGS: CHEST: Lungs clear of infiltrates. Cardiac silhouette size, billy, bony structures unremar kable. FREE AIR: None. No abnormal gas collections. BOWEL GAS PATTERN: Nonobstructive pattern. No dilated loops or air fluid levels. CALCIFICATIONS: No suspicious calcifications. HARDWARE: Clips right upper quadrant post cholecystectomy SOFT TISSUES: No gross mass or suggestion of organomegaly. BONES: No acute fracture. No worrisome bone lesions. OTHER: No other significant finding. IMPRESSION: NO RADIOGRAPHIC EVIDENCE FOR ACUTE ABDOMINAL DISEASE. TECHNICAL DOCUMENTATION: JOB ID: [id number] [employer]- All Rights Reserved
== END ==
LOC: OD 11:11
PROVIDERS: ATTEND Physician Assistant
DX: R10.84 Generalized abdominal pain (principal)
CPT/HCPCS: 74022

== ENCOUNTER 2017-06-25 03:18 | Emergency (ER) | payer BC ==
--- NOTE | 2017-06-25 04:07 | ER Document Report ---
ED GI/ - General Mode of Arrival: Ambulatory Information source: Patient TRAVEL OUTSIDE OF THE [place] IN LAST 30 DAYS: No - HPI Patient complains to provider of: Abdominal pain Onset: Other - 2 days ago Location: LUQ Associated symptoms: Other - see notes above Exacerbated by: Movement, Coughing, Deep breathing. denies: Food <ZOILA KELLY - Last Filed: 06/25/17 05:41> <CAMMIE HERNADEZ - Last Filed: 06/25/17 06:38> - General Chief Complaint: Abdominal Pain Stated Complaint: PAIN ON LEFT SIDE Time Seen by Provider: 06/25/17 03:47 Notes: 46 year old female with history of diabetes, hypertension, and dyslipidemia presents to the ED complaining of constant LUQ sharp abdominal pain that started 2 day ago and exacerbated this morning at 0200. Patient states the pain worsens with cough, deep breathing, and movement. Pain is not exacerbated with food. Patient additionally complains of nausea, but received nausea medication from her primary who checked her blood for possible infection. Patient denies diarrhea, dysuria, or hematuria. (ZOILA KELLY) - Related Data Allergies/Adverse Reactions: cephalexin monohydrate [From Keflex] Allergy (Intermediate, Verified 06/25/17 03 :19) DIFFICULTY BREATHING,SUNBURN TYPE RASH lamotrigine [From Lamictal] Allergy (Verified 06/25/17 03:19) UNKNOWN Penicillins Allergy (Verified 06/25/17 03:19) RASH Past Medical History - General Information source: Patient - Social History Smoking Status: Never Smoker Chew tobacco use (# tins/day): No Frequency of alcohol use: None Drug Abuse: None Family History: DM Patient has suicidal ideation: No Patient has homicidal ideation: No - Past Medical History Cardiac Medical History: Reports: Hx Hypercholesterolemia, Hx Hypertension - Tx Denies: Hx Coronary Artery Disease, Hx Heart Attack Pulmonary Medical History: Reports: Hx Asthma - Neb & Inhaler, Hx Pneumonia Denies: Hx Bronchitis, Hx COPD, Hx Tuberculosis Neurological Medical History: Denies: Hx Cerebrovascular Accident, Hx Seizures Endocrine Medical History: Reports: Hx Diabetes Mellitus Type 2 Renal/ Medical History: Denies: Hx Peritoneal Dialysis Musculoskeltal Medical History: Denies Hx Arthritis Psychiatric Medical History: Reports: Hx Bipolar Disorder, Hx Schizophrenia Past Surgical History: Reports: Hx Cholecystectomy, Hx Gynecologic Surgery - right ovary, Hx Tonsillectomy, Hx Tubal Ligation. Denies: Hx Hysterectomy - Immunizations Hx Diphtheria, Pertussis, Tetanus Vaccination: No Hx Pneumococcal Vaccination: 04/29/13 <KELLYZOILA - Last Filed: 06/25/17 05:41> Review of Systems - Review of Systems Constitutional: No symptoms reported EENT: No symptoms reported Cardiovascular: No symptoms reported Respiratory: No symptoms reported Gastrointestinal: See HPI, Abdominal pain, Nausea. denies: Diarrhea Genitourinary: No symptoms reported. denies: Dysuria, Hematuria Female Genitourinary: No symptoms reported Musculoskeletal: No symptoms reported Skin: No symptoms reported Hematologic/Lymphatic: No symptoms reported Neurological/Psychological: No symptoms reported -: Yes All other systems reviewed and negative <KELLYZOILA - Last Filed: 06/25/17 05:41> Physical Exam <ZOILA KELLY - Last Filed: 06/25/17 05:41> <CAMMIE HERNADEZ - Last Filed: 06/25/17 06:38> - Vital signs Vitals: Temp Pulse Resp BP Pulse Ox 97.8 F 60 18 116/61 98 06/25/17 03:20 06/25/17 03:20 06/25/17 03:20 06/25/17 03:20 06/25/17 03:20 - Notes Notes: GENERAL: Alert, interacts well. No acute distress. HEAD: Normocephalic, atraumatic. EYES: Pupils equal, round, and reactive to light. Extraocular movements intact. ENT: Oral mucosa moist, tongue midline. NECK: Full range of motion. Supple. Trachea midline. LUNGS: Clear to auscultation bilaterally, no wheezes, rales, or rhonchi. No respiratory distress. HEART: Regular rate and rhythm. No murmurs, gallops, or rubs. ABDOMEN: Soft. Non-distended. Bowel sounds present in all 4 quadrants. Superficial abrasion to the left side with no sign of shingles. LUQ tenderness to palpation with mild guarding. No rebound or rigidity. BACK: No CVA tenderness to percussion. EXTREMITIES: Moves all 4 extremities spontaneously. No edema, radial pulses 2/4 bilaterally. No cyanosis. NEUROLOGICAL: Alert and oriented x3. Normal speech. PSYCH: Normal affect, normal mood. SKIN: Warm, dry, normal turgor. (ZOILA KELLY) Course - Laboratory Result Diagrams: 06/25/17 04:15 06/25/17 04:15 <ZOILA KELLY - Last Filed: 06/25/17 05:41> - Laboratory Result Diagrams: 06/25/17 04:15 06/25/17 04:15 <CAMMIE HERNADEZ - Last Filed: 06/25/17 06:38> - Re-evaluation Re-evalutation: 06/25/17 06:31 CT scan shows unchanged cystic hypodensities in the spleen, no acute process is seen. CBC shows leukocytosis of 14.2, CMP shows slightly low CO2 at 21 otherwise unremarkable, lipase normal, test is negative, urinalysis shows greater than 500 glucose but no signs of blood or infection. Chest x-ray unremarkable. Currently have no explanation for her left upper quadrant abdominal pain or her leukocytosis. Discussed with patient using Advil and Tylenol for pain and following up with her primary care physician as outpatient for further evaluation for this left-sided abdominal pain. Return to the emergency department for fevers, worsening pain vomiting or any new or concerning symptoms. (CAMMIE HERNADEZ) - Vital Signs Vital signs: Temp Pulse Resp BP Pulse Ox 97.8 F 60 18 116/61 98 06/25/17 03:20 06/25/17 03:20 06/25/17 03:20 06/25/17 03:20 06/25/17 03:20 - Laboratory Laboratory results interpreted by me: 06/25/17 06/25/17 06/25/17 04:15 04:15 04:15 WBC 14.2 H MCHC 31.9 L RDW 14.8 H Absolute Neutrophils 9.7 H Carbon Dioxide 21 L Calcium 10.4 H Urine Glucose (UA) >=500 H Urine Ascorbic Acid 20 H Discharge <ZOILA KELLY - Last Filed: 06/25/17 05:41> <CAMMIE HERNADEZ - Last Filed: 06/25/17 06:38> - Discharge Clinical Impression: Left upper quadrant abdominal pain of unknown etiology, Splenic cyst Condition: Stable Disposition: ELOPED Additional Instructions: Today your CAT scan showed nothing new, it only showed the cysts in your spleen that were previously seen on a CAT scan in August. There is no sign of rupture or enlargement. There is no sign of blood or infection in your urine. I do not know exactly what is causing your pain. Should your pain worsen, you develop fevers, vomiting or any new or concerning symptoms please return to the emergency department. Please use ibuprofen (Motrin or Advil) 600-800 mg every 8 hours as needed for pain or fever. You may also use acetaminophen (Tylenol) 1000 mg every 4-6 hours as needed for pain or fever. Please be aware that many medications contain acetaminophen, do not exceed a total of 1000 mg of acetaminophen every 6 hours. Referrals: JESSICA KELLY MD [Primary Care Provider] - Follow up in 3-5 days Scribe Attestation: 06/25/17 06:38 I personally performed the services described in the documentation, reviewed and edited the documentation which was dictated to the scribe in my presence, and it accurately records my words and actions. (CAMMIE HERNADEZ) Scribe Documentation - Scribe Written by Vijay:: Vijay Flores, 06/25/2017 0413 acting as scribe for :: Giorgi <ZOILA KELLY - Last Filed: 06/25/17 05:41>
[2017-06-25 04:32] LABS: ABSOLUTE BASOPHILS # (AUTO) 0.1 10^3/uL (0.0-0.2); ABSOLUTE EOSINOPHILS # (AUTO) 0.2 10^3/uL (0.0-0.6); ABSOLUTE LYMPHOCYTES (AUTO) 3.3 10^3/uL (0.5-4.7); ABSOLUTE MONOCYTES (AUTO) 0.9 10^3/uL (0.1-1.4); ABSOLUTE NEUT (AUTO) 9.7 10^3/uL (1.7-8.2); BASOPHILS % (AUTO) 0.8 % (0-2); EOSINOPHILS % (AUTO) 1.6 % (0-6); HEMATOCRIT 44.1 % (36.0-47.0); HEMOGLOBIN 14.1 g/dL (12.0-15.5); LYMPHOCYTES % (AUTO) 23.1 % (13-45); MEAN CORPUSCULAR HEMOGLOBIN 28.1 pg (27.0-33.4); MEAN CORPUSCULAR HGB CONC 31.9 g/dL (32.0-36.0); MEAN CORPUSCULAR VOLUME 88 fl (80-97); MONOCYTES % (AUTO) 6.4 % (3-13); PLATELET COUNT 297 10^3/uL (150-450); RED CELL DISTRIBUTION WIDTH 14.8 % (11.5-14.0); SEGMENTED NEUTROPHILS % (AUTO) 68.1 % (42-78); TOTAL CELLS COUNTED % (AUTO) 100 %; WHITE BLOOD COUNT 14.2 10^3/uL (4.0-10.5)
[2017-06-25 04:44] LABS: ALANINE AMINOTRANSFERASE 29 U/L (9-52); ALBUMIN 4.3 g/dL (3.5-5.0); ALKALINE PHOSPHATASE 93 U/L (38-126); ANION GAP 13 (5-19); ASPARTATE AMINO TRANSFERASE 23 U/L (14-36); BILIRUBIN,DIRECT 0.3 mg/dL (0.0-0.4); BILIRUBIN,TOTAL 0.4 mg/dL (0.2-1.3); BLOOD UREA NITROGEN 18 mg/dL (7-20); CALCIUM 10.4 mg/dL (8.4-10.2); CARBON DIOXIDE 21 mmol/L (22-30); CHLORIDE 107 mmol/L (98-107); GLUCOSE 110 mg/dL (75-110); LIPASE 127.2 U/L (23-300); POTASSIUM 4.3 mmol/L (3.6-5.0); SODIUM 140.9 mmol/L (137-145); TOTAL PROTEIN 6.9 g/dL (6.3-8.2)
--- NOTE | 2017-06-25 04:48 | RADIOLOGY REPORT (SQ) ---
EXAM DESCRIPTION: CHEST PA/LAT CLINICAL HISTORY: cough, LLL, LUQ pain COMPARISON: 02/05/2017 FINDINGS: Frontal and lateral views of the chest. The cardiomediastinal silhouette has normal size and contour. No consolidation, pneumothorax, or pleural effusion. No displaced rib fractures identified. Upper abdominal soft tissues are unremarkable. IMPRESSION: 1. No acute pulmonary process identified.
[2017-06-25 05:14] LABS: APPEARANCE,URINE CLEAR; BILIRUBIN,URINE NEGATIVE (NEGATIVE); COLOR,URINE STRAW; GLUCOSE, URINE >=500 mg/dL (NEGATIVE); KETONES,URINE NEGATIVE (NEGATIVE); LEUKOCYTE ESTERASE,URINE NEGATIVE (NEGATIVE); NITRITE,URINE NEGATIVE (NEGATIVE); PROTEIN,URINE NEGATIVE (NEGATIVE); URINE SPECIFIC GRAVITY 1.003; UROBILINOGEN,URINE NEGATIVE mg/dL (<2.0)
--- NOTE | 2017-06-25 06:28 | RADIOLOGY REPORT (SQ) ---
EXAM DESCRIPTION: CT ABDOMEN AND PELVIS WITH CONTRAST CLINICAL HISTORY: LUQ pain, leukocytosis, ?diverticulitis COMPARISON: 09/15/2016 TECHNIQUE: CT of the abdomen and pelvis are performed during IV bolus administration of 100.3 mL [id number]. Delayed imaging obtained. DLP: 3414.14 mGycm FINDINGS: Abdomen: The liver has normal size and density. No intrahepatic mass or biliary dilatation. Prior cholecystectomy. The pancreas and adrenal glands are unremarkable. Unchanged cystic hypodensities in the spleen. Bilateral Bosniak class I renal cysts. Punctate nonobstructing inferior pole left renal calculus. No hydronephrosis. The aorta and IVC have normal caliber and position. The portal vein patent. The proximal visceral and renal arteries are patent. No free intraperitoneal air. The stomach and duodenum have normal course. Pelvis: Uterus is not enlarged. Urinary bladder is unremarkable. No free pelvic fluid or lymphadenopathy. No dilated loops of large or small bowel. The appendix is not definitely visualized. No right lower quadrant inflammatory change. The visualized lung bases are clear. No destructive bone lesions identified. IMPRESSION: 1. No acute inflammatory or obstructive abnormality identified. 2. Punctate nonobstructing inferior pole left renal calculus. This exam was performed according to our departmental dose-optimization program, which includes automated exposure control, adjustment of the mA and/or kV according to patient size and/or use of iterative reconstruction technique.
[2017-06-25] MEDS ORDERED: KETOROLAC TROMETHAMINE INJ/PF 30 MG/1 ML SDV IV ONE (06:37)
[2017-06-25 06:55] VITALS: BP 108/60
== END 2017-06-25 06:57 | disposition home or self-care (01) ==
LOC: ER 03:18
DX: D73.4 Cyst of spleen (principal); R10.12 Left upper quadrant pain; R10.9 Unspecified abdominal pain; E11.9 Type 2 diabetes mellitus without complications; I10 Essential (primary) hypertension; E78.5 Hyperlipidemia, unspecified; R10.11 Right upper quadrant pain; R11.0 Nausea
CPT/HCPCS: 99284; 96374; 36415; 83690; 84703; 85025; 80053; 81001; 71020; 74177; J1885

== ENCOUNTER → 2017-08-02 | Outpatient (CLI) | payer BC ==
[2017-08-02 16:20] LABS: ABSOLUTE BASOPHILS # (AUTO) 0.1 10^3/uL (0.0-0.2); ABSOLUTE EOSINOPHILS # (AUTO) 0.3 10^3/uL (0.0-0.6); ABSOLUTE LYMPHOCYTES (AUTO) 3.1 10^3/uL (0.5-4.7); ABSOLUTE NEUT (AUTO) 9.1 10^3/uL (1.7-8.2); BASOPHILS % (AUTO) 0.7 % (0-2); EOSINOPHILS % (AUTO) 2.2 % (0-6); HEMATOCRIT 43.6 % (36.0-47.0); HEMOGLOBIN 14.4 g/dL (12.0-15.5); MEAN CORPUSCULAR HGB CONC 32.9 g/dL (32.0-36.0); MEAN CORPUSCULAR VOLUME 88 fl (80-97); MONOCYTES % (AUTO) 7.1 % (3-13); PLATELET COUNT 273 10^3/uL (150-450); RED BLOOD COUNT 4.96 10^6/uL (3.72-5.28); RED CELL DISTRIBUTION WIDTH 14.7 % (11.5-14.0); TOTAL CELLS COUNTED % (AUTO) 100 %; WHITE BLOOD COUNT 13.6 10^3/uL (4.0-10.5)
[2017-08-02 16:36] LABS: ALANINE AMINOTRANSFERASE 32 U/L (9-52); ALBUMIN 4.3 g/dL (3.5-5.0); ALKALINE PHOSPHATASE 96 U/L (38-126); ANION GAP 9 (5-19); ASPARTATE AMINO TRANSFERASE 25 U/L (14-36); BILIRUBIN,DIRECT 0.4 mg/dL (0.0-0.4); BILIRUBIN,TOTAL 0.4 mg/dL (0.2-1.3); BLOOD UREA NITROGEN 17 mg/dL (7-20); CALCIUM 10.4 mg/dL (8.4-10.2); CARBON DIOXIDE 27 mmol/L (22-30); CHLORIDE 104 mmol/L (98-107); GLUCOSE 87 mg/dL (75-110); POTASSIUM 4.8 mmol/L (3.6-5.0); SODIUM 139.8 mmol/L (137-145)
== END ==
LOC: OD 15:32
PROVIDERS: ATTEND Physician Assistant
DX: R05 Cough (principal)
CPT/HCPCS: 36415; 80053; 85025

== ENCOUNTER → 2017-08-02 | Outpatient (CLI) | payer BC ==
--- NOTE | 2017-08-02 16:20 | RADIOLOGY REPORT (SQ) ---
EXAM DESCRIPTION: CHEST PA/LATERAL COMPLETED DATE/TIME: 08/02/2017 4:10 pm REASON FOR STUDY: COUGH COMPARISON: Chest films 06/09/2017, 06/25/2017 EXAM PARAMETERS: NUMBER OF VIEWS: two views TECHNIQUE: Digital Frontal and Lateral radiographic views of the chest acquired. RADIATION DOSE: NA LIMITATIONS: none FINDINGS: LUNGS AND PLEURA: No opacities, masses or pneumothorax. No pleural effusion. MEDIASTINUM AND HILAR STRUCTURES: No masses or contour abnormalities. HEART AND VASCULAR STRUCTURES: Heart normal size. No evidence for failure. BONES: No acute findings. HARDWARE: Clips right upper quadrant post cholecystectomy OTHER: No other significant finding. IMPRESSION: NO SIGNIFICANT RADIOGRAPHIC FINDING IN THE CHEST. TECHNICAL DOCUMENTATION: JOB ID: [id number] [employer]- All Rights Reserved
== END ==
LOC: OD 15:56
PROVIDERS: ATTEND Physician Assistant
DX: R05 Cough (principal)
CPT/HCPCS: 71046

== ENCOUNTER 2017-08-04 18:40 | Emergency (ER) | payer BC ==
[2017-08-04] MEDS ORDERED: NORMAL SALINE 1000 ML 2,000 ML IV ONE (20:27)
--- NOTE | 2017-08-04 20:28 | ER Document Report ---
ED Medical Screen (RME) - General Chief Complaint: High Blood Sugar Stated Complaint: BLOOD SUGAR PROBLEMS Time Seen by Provider: 08/04/17 20:26 Notes: Patient states that she was recently diagnosed with a upper respiratory infection. She was placed on steroids. She states she has been having excessive thirst and urination. She took her sugar today and it was 507. TRAVEL OUTSIDE OF THE [place] IN LAST 30 DAYS: No - Related Data Allergies/Adverse Reactions: cephalexin monohydrate [From Keflex] Allergy (Intermediate, Verified 08/04/17 18 :42) DIFFICULTY BREATHING,SUNBURN TYPE RASH lamotrigine [From Lamictal] Allergy (Verified 08/04/17 18:42) UNKNOWN Penicillins Allergy (Verified 08/04/17 18:42) RASH Past Medical History - Social History Frequency of alcohol use: None Drug Abuse: None - Past Medical History Cardiac Medical History: Reports: Hx Hypercholesterolemia, Hx Hypertension - Tx Denies: Hx Coronary Artery Disease, Hx Heart Attack Pulmonary Medical History: Reports: Hx Asthma - Neb & Inhaler, Hx Pneumonia Denies: Hx Bronchitis, Hx COPD, Hx Tuberculosis Neurological Medical History: Denies: Hx Cerebrovascular Accident, Hx Seizures Endocrine Medical History: Reports: Hx Diabetes Mellitus Type 2 Renal/ Medical History: Denies: Hx Peritoneal Dialysis Musculoskeltal Medical History: Denies Hx Arthritis Psychiatric Medical History: Reports: Hx Bipolar Disorder, Hx Schizophrenia Past Surgical History: Reports: Hx Cholecystectomy, Hx Gynecologic Surgery - right ovary, Hx Tonsillectomy, Hx Tubal Ligation. Denies: Hx Hysterectomy - Immunizations Hx Diphtheria, Pertussis, Tetanus Vaccination: No Physical Exam - Vital signs Vitals: Temp Pulse Resp BP Pulse Ox 98.5 F 86 18 151/92 H 98 08/04/17 19:23 08/04/17 19:23 08/04/17 19:23 08/04/17 19:23 08/04/17 19:23 Course - Vital Signs Vital signs: Temp Pulse Resp BP Pulse Ox 98.5 F 78 18 151/92 H 98 08/04/17 19:23 08/04/17 20:13 08/04/17 19:23 08/04/17 19:23 08/04/17 19:23
[2017-08-04 21:29] LABS: APPEARANCE,URINE SLIGHTLY-CLOUDY; BILIRUBIN,URINE NEGATIVE (NEGATIVE); COLOR,URINE STRAW; GLUCOSE, URINE >=500 mg/dL (NEGATIVE); KETONES,URINE NEGATIVE (NEGATIVE); LEUKOCYTE ESTERASE,URINE SMALL (NEGATIVE); NITRITE,URINE NEGATIVE (NEGATIVE); PROTEIN,URINE NEGATIVE (NEGATIVE); URINE SPECIFIC GRAVITY 1.014; UROBILINOGEN,URINE NEGATIVE mg/dL (<2.0)
[2017-08-04 21:31] LABS: ABSOLUTE BASOPHILS # (AUTO) 0.1 10^3/uL (0.0-0.2); ABSOLUTE LYMPHOCYTES (AUTO) 1.9 10^3/uL (0.5-4.7); ABSOLUTE MONOCYTES (AUTO) 0.8 10^3/uL (0.1-1.4); ABSOLUTE NEUT (AUTO) 16.6 10^3/uL (1.7-8.2); BASOPHILS % (AUTO) 0.7 % (0-2); EOSINOPHILS % (AUTO) 0.1 % (0-6); HEMATOCRIT 45.2 % (36.0-47.0); HEMOGLOBIN 14.8 g/dL (12.0-15.5); LYMPHOCYTES % (AUTO) 9.9 % (13-45); MEAN CORPUSCULAR HGB CONC 32.8 g/dL (32.0-36.0); MEAN CORPUSCULAR VOLUME 89 fl (80-97); MONOCYTES % (AUTO) 4.2 % (3-13); PLATELET COUNT 338 10^3/uL (150-450); RED CELL DISTRIBUTION WIDTH 15.3 % (11.5-14.0); SEGMENTED NEUTROPHILS % (AUTO) 85.1 % (42-78); TOTAL CELLS COUNTED % (AUTO) 100 %; WHITE BLOOD COUNT 19.4 10^3/uL (4.0-10.5)
[2017-08-05 00:02] LABS: ALANINE AMINOTRANSFERASE 18 U/L (9-52); ALBUMIN 3.9 g/dL (3.5-5.0); ALKALINE PHOSPHATASE 87 U/L (38-126); ANION GAP 12 (5-19); ASPARTATE AMINO TRANSFERASE 21 U/L (14-36); BILIRUBIN,DIRECT 0.2 mg/dL (0.0-0.4); BILIRUBIN,TOTAL 0.3 mg/dL (0.2-1.3); BLOOD UREA NITROGEN 15 mg/dL (7-20); CALCIUM 8.8 mg/dL (8.4-10.2); CARBON DIOXIDE 22 mmol/L (22-30); CHLORIDE 106 mmol/L (98-107); GLUCOSE 123 mg/dL (75-110); POTASSIUM 4.5 mmol/L (3.6-5.0); SODIUM 139.6 mmol/L (137-145); TOTAL PROTEIN 6.2 g/dL (6.3-8.2)
[2017-08-05] MEDS ORDERED: IPRATROPIUM/ALBUTEROL 0.5-2.5 MG/3 ML AMPUL NEB ONE (01:17)
--- NOTE | 2017-08-05 01:26 | ER Document Report ---
ED General - General Chief Complaint: High Blood Sugar Stated Complaint: BLOOD SUGAR PROBLEMS Time Seen by Provider: 08/04/17 20:26 Notes: Patient is a pleasant 46-year-old female with a history of diabetes also has history of asthma. She saw her doctor several days ago was placed on prednisone. Since then her blood sugars have gone up. She had a chest x-ray 1 week ago which is negative. She was told to stop her prednisone yesterday. She has blood sugar continue go up tonight and therefore she came to the ER. No vomiting. No diarrhea. No other complaints at this time. No recent fevers. Is also on Tamiflu. TRAVEL OUTSIDE OF THE [place] IN LAST 30 DAYS: No - Related Data Allergies/Adverse Reactions: cephalexin monohydrate [From Keflex] Allergy (Intermediate, Verified 08/04/17 18 :42) DIFFICULTY BREATHING,SUNBURN TYPE RASH lamotrigine [From Lamictal] Allergy (Verified 08/04/17 18:42) UNKNOWN Penicillins Allergy (Verified 08/04/17 18:42) RASH Past Medical History - Social History Smoking Status: Former Smoker Frequency of alcohol use: None Drug Abuse: None Family History: DM Patient has suicidal ideation: No Patient has homicidal ideation: No - Past Medical History Cardiac Medical History: Reports: Hx Hypercholesterolemia, Hx Hypertension - Tx Denies: Hx Coronary Artery Disease, Hx Heart Attack Pulmonary Medical History: Reports: Hx Asthma - Neb & Inhaler, Hx Pneumonia Denies: Hx Bronchitis, Hx COPD, Hx Tuberculosis Neurological Medical History: Denies: Hx Cerebrovascular Accident, Hx Seizures Endocrine Medical History: Reports: Hx Diabetes Mellitus Type 2 Renal/ Medical History: Denies: Hx Peritoneal Dialysis Musculoskeltal Medical History: Denies Hx Arthritis Psychiatric Medical History: Reports: Hx Bipolar Disorder, Hx Schizophrenia Past Surgical History: Reports: Hx Cholecystectomy, Hx Gynecologic Surgery - right ovary, Hx Tonsillectomy, Hx Tubal Ligation. Denies: Hx Hysterectomy - Immunizations Hx Diphtheria, Pertussis, Tetanus Vaccination: No Hx Pneumococcal Vaccination: 04/29/13 Review of Systems - Review of Systems Notes: My Normal Review Basic REVIEW OF SYSTEMS: CONSTITUTIONAL : Denies fever, chills, or sweats. EENT: Denies eye, ear, throat, or mouth pain or symptoms. Denies nasal or sinus congestion. RESPIRATORY: Cough and congestion GASTROINTESTINAL: Denies abdominal pain. Denies nausea, vomiting, or diarrhea. GENITOURINARY: Denies difficulty urinating, painful urination, burning, frequency, or blood in urine. MUSCULOSKELETAL: Denies neck or back pain or joint pain or swelling. SKIN: Denies rash or skin lesions. NEUROLOGICAL: Denies altered mental status or loss of consciousness. Denies headache. Denies weakness or paralysis or loss of use of either side. Denies problems with gait or speech. Denies sensory or motor loss. ALL OTHER SYSTEMS REVIEWED AND NEGATIVE. Physical Exam - Vital signs Vitals: Temp Pulse Resp BP Pulse Ox 98.5 F 86 18 151/92 H 98 08/04/17 19:23 08/04/17 19:23 08/04/17 19:23 08/04/17 19:23 08/04/17 19:23 - Notes Notes: General Appearance: Well nourished, alert, cooperative, no acute distress, no obvious discomfort. Appearing. Vitals: reviewed, See vital signs table. Head: no swelling or tenderness to the head Eyes: PERRL, EOMI, Conjuctiva clear Mouth: No decreasd moisture Throat: No tonsillar inflammation, No airway obstruction, No lymphadenopathy Lungs: Scattered wheezing, No rales, No rhonci, No accessory muscle use, good air exchange bilaterally. Heart: Normal rate, Regular rythm, No murmur, no rub Abdomen: Normal BS, soft, No rigidity, No abdominal tenderness, No guarding, no rebound, no abdominal masses, no organomegaly Extremities: strength 5/5 in all extremities, good pulses in all extremities, no swelling or tenderness in the extremities, no edema. Skin: warm, dry, appropriate color, no rash Neuro: speech clear, oriented x 3, normal affect, responds appropriately to questions. Course - Re-evaluation Re-evalutation: 08/05/17 08:39 Patient's chest x-ray is negative for pneumonia. Her blood sugars have improved here. She does have leukocytosis. I therefore did obtain chest x-ray to make sure she was not developing pneumonia and she is not. I suspect her leukocytosis probably is also related to the steroids that she has been on. Patient has now stopped the steroids. I encourage her not to take them anymore. She had just very slight wheezing which did clear with albuterol treatment here. I encourage her to continue using her nebulizer machine at home but to return to ER immediately if she has recurrent difficulty breathing or feels unwell. Patient agrees with plan will be discharged home. - Vital Signs Vital signs: Temp Pulse Resp BP Pulse Ox 97.6 F 68 16 108/53 L 98 08/05/17 03:35 08/05/17 03:35 08/05/17 03:35 08/05/17 03:35 08/05/17 03:35 - Laboratory Result Diagrams: 08/04/17 21:25 08/04/17 23:38 Laboratory results interpreted by me: 08/04/17 08/04/17 08/04/17 19:27 20:37 21:00 WBC RDW Seg Neutrophils % Lymphocytes % Absolute Neutrophils Glucose POC Glucose 265 H 177 H Total Protein Urine Glucose (UA) >=500 H Urine Blood SMALL H Ur Leukocyte Esterase SMALL H 08/04/17 08/04/17 21:25 23:38 WBC 19.4 H RDW 15.3 H Seg Neutrophils % 85.1 H Lymphocytes % 9.9 L Absolute Neutrophils 16.6 H Glucose 123 H POC Glucose Total Protein 6.2 L Urine Glucose (UA) Urine Blood Ur Leukocyte Esterase Discharge - Discharge Clinical Impression: Cough, Hyperglycemia Leukocytosis Qualifiers: Leukocytosis type: unspecified Qualified Code(s): D72.829 - Elevated white blood cell count, unspecified Condition: Good Disposition: HOME, SELF-CARE Additional Instructions: Please continue to use your nebulizer as prescribed. Do not take any more steroid medication. Please continue to watch your blood sugar carefully. Please return to the ER if you have continue rises in your blood sugar not responding to your insulin, fevers, difficulty breathing, or if you feel that you are worsening. Please follow up on wednesday for reevaluation.
--- NOTE | 2017-08-05 01:55 | RADIOLOGY REPORT (SQ) ---
EXAM DESCRIPTION: CHEST PA/LAT CLINICAL HISTORY: cough COMPARISON: 08/02/2017 FINDINGS: Frontal and lateral views of the chest. The cardiomediastinal silhouette has normal size and contour. No consolidation, pneumothorax, or pleural effusion. No displaced rib fractures identified. Prior cholecystectomy. Leads overlie the chest. Degenerative change of the spine. IMPRESSION: 1. No acute pulmonary process identified.
[2017-08-05 03:38] VITALS: BP 108/53
== END 2017-08-05 03:35 | disposition home or self-care (01) ==
LOC: ER 18:40
DX: E11.65 Type 2 diabetes mellitus with hyperglycemia (principal); D72.829 Elevated white blood cell count, unspecified; R05 Cough; Z90.49 Acquired absence of other specified parts of digestive tract; Z98.51 Tubal ligation status; Z88.0 Allergy status to penicillin
CPT/HCPCS: 94640; 99284; 96360; 96361; 36415; 82962; 85025; 81025; 80053; 81001; 71046; J7030; J7620

== ENCOUNTER 2017-08-21 08:59 | Emergency (ER) | payer BC ==
[2017-08-21 09:08] VITALS: BP 106/48
[2017-08-21] MEDS ORDERED: KETOROLAC TROMETHAMINE 60 MG/2 ML SDV IM ONE (10:13)
--- NOTE | 2017-08-21 10:15 | ER Document Report ---
HPI - HPI Patient complains to provider of: left knee pain Pain Level: 5 Notes: 46-year-old female with a history of chronic knee pain presents today with complaints of an acute exacerbation of her left knee pain 1 day. Patient reports noted swelling around her knee. Denies any recent trauma.. Pain 6/10, throbbing and constant. Tried otc motrin without full relief. Reports some swelling. Has not tried any icing. denies previous injury of knee. Unable to bear full weight. Denies any n/t in affected limb. Worse with ambulation, better when at rest. denies hitting head or change in loc. Denies fevers, chills, chest pain,palpitations, shortness of breath, dyspnea, nausea, vomiting, diarrhea, abdominal pain, hematuria,blurred vision, double vision, loss of vision, speech changes, LH, dizziness, syncope, headaches, wheezing, ST , URI, neck pain, weakness, bowel or bladder dysfunction, saddle anesthesia, numbness or tingling in bilateral upper or lower extremities equally, muscle paralysis, weakness in bilateral upper or lower extremities equally or rash. Denies IV drug use. - ROS Notes: REVIEW OF SYSTEMS: CONSTITUTIONAL : Denies fever, chills, or sweats. Denies recent illness. EENT: Denies eye, ear, throat, or mouth pain or symptoms. Denies nasal or sinus congestion or discharge. Denies throat, tongue, or mouth swelling or difficulty swallowing. CARDIOVASCULAR: Denies chest pain. Denies palpitations or racing or irregular heart beat. Denies ankle edema. RESPIRATORY: Denies cough, cold, or chest congestion. Denies shortness of breath, difficulty breathing, or wheezing. GASTROINTESTINAL: Denies abdominal pain or distention. Denies nausea, vomiting , or diarrhea. Denies blood in vomitus, stools, or per rectum. Denies black, tarry stools. Denies constipation. GENITOURINARY: Denies difficulty urinating, painful urination, burning, frequency, blood in urine, or discharge. FEMALE GENITOURINARY: Denies vaginal bleeding, heavy or abnormal periods, irregular periods. Denies vaginal discharge or odor. MUSCULOSKELETAL: Reports left knee pain. Denies back or neck pain or stiffness. Denies joint pain or swelling. SKIN: Denies rash, lesions or sores. HEMATOLOGIC : Denies easy bruising or bleeding. LYMPHATIC: Denies swollen, enlarged glands. NEUROLOGICAL: Denies confusion or altered mental status. Denies passing out or loss of consciousness. Denies dizziness or lightheadedness. Denies headache. Denies weakness or paralysis or loss of use of either side. Denies problems with gait or speech. Denies sensory loss, numbness, or tingling. Denies seizures. PSYCHIATRIC: Denies anxiety or stress. Denies depression, suicidal ideation, or homicidal ideation. ALL OTHER SYSTEMS REVIEWED AND NEGATIVE. PHYSICAL EXAMINATION: GENERAL: Well-appearing, well-nourished and in no acute distress. HEAD: Atraumatic, normocephalic. EYES: Pupils equal round and reactive to light, extraocular movements intact, conjunctiva are normal. ENT: Nares patent, oropharynx clear without exudates. Moist mucous membranes. NECK: Normal range of motion, supple without lymphadenopathy LUNGS: Breath sounds clear to auscultation bilaterally and equal. No wheezes rales or rhonchi. HEART: Regular rate and rhythm without murmurs ABDOMEN: Soft, nontender, nondistended abdomen. No guarding, no rebound. No masses appreciated. Female : deferred Musculoskeletal: Normal range of motion, no pitting or edema. No cyanosis. Left knee pain with palpation to lateral aspect of knee with noted swelling. negative sienna's sign. anterior and posterior drawer test negative.Dtr + 2 in BLE. Full motor and sensory function to BLE equally. Negative lachmans test and posterior/anterior drawer test. No open wounds. No induration or drainage. pulses + 2 bilaterally and equally.negative squeeze bilaterally and equally. NEUROLOGICAL: Cranial nerves grossly intact. Normal speech, normal gait. Normal sensory, motor exams PSYCH: Normal mood, normal affect. SKIN: Warm, Dry, normal turgor, no rashes or lesions noted. Dictation was performed using [employer] voice recognition software - REPRODUCTIVE Reproductive: DENIES: : - MUSCULOSKELETAL Musculoskeletal: REPORTS: Extremity pain Past Medical History - Social History Smoking Status: Former Smoker Chew tobacco use (# tins/day): No Frequency of alcohol use: None Drug Abuse: None Family History: DM Patient has suicidal ideation: No Patient has homicidal ideation: No - Past Medical History Cardiac Medical History: Reports: Hx Hypercholesterolemia, Hx Hypertension - Tx Denies: Hx Coronary Artery Disease, Hx Heart Attack Pulmonary Medical History: Reports: Hx Asthma - Neb & Inhaler, Hx Pneumonia Denies: Hx Bronchitis, Hx COPD, Hx Tuberculosis Neurological Medical History: Denies: Hx Cerebrovascular Accident, Hx Seizures Endocrine Medical History: Reports: Hx Diabetes Mellitus Type 2 Renal/ Medical History: Denies: Hx Peritoneal Dialysis Musculoskeltal Medical History: Denies Hx Arthritis Psychiatric Medical History: Reports: Hx Bipolar Disorder, Hx Schizophrenia Past Surgical History: Reports: Hx Cholecystectomy, Hx Gynecologic Surgery - right ovary, Hx Tonsillectomy, Hx Tubal Ligation. Denies: Hx Hysterectomy - Immunizations Hx Diphtheria, Pertussis, Tetanus Vaccination: No Hx Pneumococcal Vaccination: 04/29/13 Vertical Provider Document - INFECTION CONTROL TRAVEL OUTSIDE OF THE [place] IN LAST 30 DAYS: No - RESPIRATORY O2 Sat by Pulse Oximetry: 98 Course - Re-evaluation Re-evalutation: 08/21/17 10:49 Discussed the results of the radiology as well as the diagnosis at great length. Discussed the need to return to the ER for any new or worsening sx. patient placed in knee immobilizer, given crutches. Work note given for 3 days. Follow-up with older worker specialist within 3 days. Rice therapy. Patient understands to take the Rx as directed. All questions answered. Patient comfortable with the decision to go home. After performing a Medical Screening Examination, I estimate there is LOW risk for FRACTURE, COMPARTMENT SYNDROME, DEEP VENOUS THROMBOSIS, ACUTE TENDON RUPTURE , or NEUROVASCULAR INJURY thus I consider the discharge disposition reasonable. I have reevaluated this patient multiple times and no significant life threatening changes are noted. The patient and I have discussed the diagnosis and risks, and we agree with discharging home to closely follow-up with their primary doctor or the referral orthopedist with the understanding that symptoms and presentations can change. We also discussed returning to the Emergency Department immediately if new or worsening symptoms occur. We have discussed the symptoms which are most concerning (e.g., changing or worsening pain, numbness, weakness) that necessitate immediate return 08/21/17 11:40 - Vital Signs Vital signs: Temp Pulse Resp BP Pulse Ox 97.9 F 69 16 106/48 L 98 08/21/17 09:07 08/21/17 09:07 08/21/17 09:07 08/21/17 09:07 08/21/17 09:07 Discharge - Discharge Clinical Impression: Left knee sprain Qualifiers: Encounter type: initial encounter Involved ligament of knee: other ligament Qualified Code(s): S83.8X2A - Sprain of other specified parts of left knee, initial encounter Condition: Good Disposition: HOME, SELF-CARE Instructions: Use of Crutches ([facility]), Ice & Elevation ([facility]), Knee Immobilizing Splint ([facility]), Sprained Knee ([facility]) Additional Instructions: SPRAIN: Your injury is a sprain. A sprain results from stretching or tearing of the ligaments, usually from a twisting injury. The ligaments will require time and protection in order to heal properly. Many sprains are quite disabling and should be taken seriously. The usual initial treatment of sprains is cold packs, elevation, and rest of the injured area. Your physician has assessed the seriousness of your ligament injury, and has outlined a treatment plan. Understand that this treatment may change, depending on how you progress. If a re-examination was recommended, it is important that you follow up as instructed. Call the doctor any time if there is severe pain, numbness, or loss of function in the injured area. JUDI WRAP: A compression dressing (judi wrap) has been placed. This helps hold the area still. It limits swelling and internal bleeding. The wrap should be comfortably snug -- not tight. You should feel a sense of pressure, but not severe pain under the wrap. Unless the physician tells you otherwise, you can adjust the wrap for comfort. If the wrap causes symptoms suggesting it's too tight -- uncomfortable pressure, swelling or discoloration beyond the wrap, numbness, or severe pain - - you must loosen the wrap. If these symptoms don't resolve promptly, return for re-evaluation. SPRAINED KNEE: Your sprained knee results from a stretching or tearing of the ligaments which support the joint. This often results from a bending stress -- such as a twisting fall while skiing or a "clip" while playing football. The ligaments will require time and protection to heal adequately. A knee sprain can be quite serious, and should be taken seriously. The usual treatment is splinting of the knee, ice packs, and elevation. You shouldn't walk on the leg if weightbearing is painful. Unless the sprain is obviously a minor one, follow-up exam is very important. The degree of ligament damage often cannot be fully assessed at first due to muscle spasm and pain. Your treatment plan may change based on the physician's findings during your follow-up examination. Call the doctor at once if there is severe swelling, increasing pain, numbness, or other alarming symptoms. SUSPECTED INTERNAL KNEE INJURY: The examiner of your injured knee suspects an internal injury to the cartilage or internal ligaments. This must be further investigated by an older worker specialist. The knee should be protected, ice packed, and elevated while awaiting your follow-up exam by the orthopedist. If there is severe swelling, severe pain, or any new symptoms while awaiting your exam, you should call the orthopedist. (If he/she is unavailable, call us or return for re-examination.) KNEE IMMOBILIZING SPLINT: The knee immobilizing splint will protect the injury while healing begins. This type of splint does not allow the knee to bend at all. No running or sports will be possible. If the splint allows painfree walking, it's giving adequate protection. If there is still significant pain, crutches may be needed as well. Don't do anything that hurts. Adjusted the splint, if necessary. The stiffeners on the sides are attached with Velcro, so they can be easily moved to adjust for thigh and calf size. If you need help with these adjustments, come back. You will lose muscle strength in the thigh while using this splint. The doctor will advise you if it's safe to do isometric knee exercises while you use it. USE OF CRUTCHES: The doctor has recommended that you not bear weight at this time. You will need to use crutches. Adjust the crutches so the tops come to about two inches under the armpit while you are standing upright. Use your hands -- not your armpits -- to support your weight. To get into a chair, support yourself with one crutch on the injured side. Hold the chair with the other hand, then lower yourself while putting all your weight on the good leg. Going up stairs is `good leg up, step up, then bring up crutches and bad leg.' Down stairs is `bad leg and crutches down, then bring good leg down.' If you develop numbness or swelling in an arm or hand, you are using the crutches incorrectly. Return if you are having any problems with the crutches. ICE & ELEVATION: Apply ice packs frequently against the painful area. Many different schedules are recommended, such as "20 minutes on, 20 minutes off" or "one hour ice, two hours rest." If you need to work, you may need to go longer between ice treatments. You should plan to have the area ice packed AT LEAST one- fourth of the time. The ice should be applied over the wrap, tape, or splint, or over a layer of cloth -- not directly against the skin. Some ice bags have a built-in cloth and can be put directly on the skin. Your injured part should be elevated as much as possible over the next 48 hours. Try to keep the injury above the level of the heart. Avoid use of the injured area. Elevation and rest will decrease the swelling. USE OF [id number] IBUPROFEN: Ibuprofen (Advil, Nuprin, Medipren, Motrin IB) is a medication for fever and pain control. In addition, it has anti- inflammatory effects which may be beneficial, especially in the treatment of injuries. It's best to take ibuprofen with food. Persons with ulcer disease or allergy to aspirin should notify their physician of this before taking ibuprofen. Ibuprofen can be given every four to six hours, for a total of four doses daily. Age Pain or fever dose Antiinflammatory dose 6-8 yr 200 mg (1 tab) 200 mg (1 tab) 9-11 yr 200 mg (1 tab) 200-400 mg (1-2 tab) 11-14 yr 200-400 mg (1-2 tab) 400 mg (2 tab) 15-adult 400 mg (2 tab) 600 mg (3 tab) FOLLOW-UP CARE: If you have been referred to a physician for follow-up care, call the physician s office for an appointment as you were instructed or within the next two days. If you experience worsening or a significant change in your symptoms, notify the physician immediately or return to the Emergency Department at any time for re-evaluation. Please follow up with the Orthopedics [facility] [address] [place] [id number] Follow-up with older worker specialist within 1 week, follow up with primary care within 3 days. Work note given for 3 days. Follow Rice therapy. Return immediately for any new or worsening symptoms. Follow up with primary care provider, call tomorrow to make followup appointment. Prescriptions: Ibuprofen 600 mg PO QIDP PRN #20 tablet PRN Reason: Forms: Return to Work Referrals: RASHAAD SERRA MD [ACTIVE STAFF] - Follow up as needed JONATHAN DAWKINS MD [ACTIVE STAFF] - Follow up in 1 week
--- NOTE | 2017-08-21 11:15 | RADIOLOGY REPORT (SQ) ---
EXAM DESCRIPTION: KNEE LEFT 4 VIEW COMPLETED DATE/TIME: 08/21/2017 10:47 am REASON FOR STUDY: acute L knee pain x 1 day w/swelling COMPARISON: None. NUMBER OF VIEWS: Four views. TECHNIQUE: AP, lateral, and both oblique radiographic images acquired of the left knee. LIMITATIONS: None. FINDINGS: MINERALIZATION: Normal. BONES: No acute fracture or dislocation. No worrisome bone lesions. Tricompartmental osteoarthritic changes are present with likely joint space loss in the medial compartment. JOINT: No effusion. SOFT TISSUES: No soft tissue swelling. No radio-opaque foreign body. OTHER: No other significant finding. IMPRESSION: No evidence of an acute process. Kellgren Baron grade 3 osteoarthritic changes of th e left knee. TECHNICAL DOCUMENTATION: JOB ID: [id number] [employer]- All Rights Reserved Reading location - IP/workstation name: [email or web address]
== END 2017-08-21 11:56 | disposition home or self-care (01) ==
LOC: ER 08:59
DX: S83.92XA Sprain of unspecified site of left knee, initial encounter (principal); M25.562 Pain in left knee; X58.XXXA Exposure to other specified factors, initial encounter; E11.9 Type 2 diabetes mellitus without complications; I10 Essential (primary) hypertension; J45.909 Unspecified asthma, uncomplicated; Z87.891 Personal history of nicotine dependence
CPT/HCPCS: 99283; 96372; 73562; L1830; J1885

== ENCOUNTER → 2017-09-01 | Outpatient (CLI) | payer BC ==
--- NOTE | 2017-09-01 13:35 | RADIOLOGY REPORT (SQ) ---
EXAM DESCRIPTION: CHEST PA/LATERAL COMPLETED DATE/TIME: 09/01/2017 11:23 am REASON FOR STUDY: ELEVATED WHITE BLOOD CELL COUNT, UNSPECIFIED COMPARISON: 08/05/2017. EXAM PARAMETERS: NUMBER OF VIEWS: two views TECHNIQUE: Digital Frontal and Lateral radiographic views of the chest acquired. RADIATION DOSE: NA LIMITATIONS: none FINDINGS: LUNGS AND PLEURA: No opacities, masses or pneumothorax. No pleural effusion. MEDIASTINUM AND HILAR STRUCTURES: No masses or contour abnormalities. HEART AND VASCULAR STRUCTURES: Heart normal size. No evidence for failure. BONES: No acute findings. HARDWARE: None in the chest. OTHER: No other significant finding. IMPRESSION: NO SIGNIFICANT RADIOGRAPHIC FINDING IN THE CHEST. TECHNICAL DOCUMENTATION: JOB ID: [id number] [employer]- All Rights Reserved Reading location - IP/workstation name: [email or web address]
== END ==
LOC: OD 11:06
PROVIDERS: ATTEND Physician Assistant
DX: D72.829 Elevated white blood cell count, unspecified (principal)
CPT/HCPCS: 71046

== ENCOUNTER → 2017-11-29 | Outpatient (CLI) | payer BC ==
[2017-11-29 14:20] LABS: CHOLESTEROL 116.63 mg/dL (0-200); DIRECT LDL 47 mg/dL (<100); TRIGLYCERIDES 240 mg/dL (<150)
[2017-11-30 13:05] LABS: ALANINE AMINOTRANSFERASE 27 U/L (9-52); ALKALINE PHOSPHATASE 93 U/L (38-126); ASPARTATE AMINO TRANSFERASE 26 U/L (14-36); BILIRUBIN,DIRECT 0.2 mg/dL (0.0-0.4); BILIRUBIN,TOTAL 0.2 mg/dL (0.2-1.3); TOTAL PROTEIN 6.7 g/dL (6.3-8.2)
== END ==
LOC: OD 12:15
PROVIDERS: ATTEND Specialist
DX: R07.9 Chest pain, unspecified (principal); R01.1 Cardiac murmur, unspecified; I10 Essential (primary) hypertension; E11.9 Type 2 diabetes mellitus without complications; E78.5 Hyperlipidemia, unspecified; F31.31 Bipolar disorder, current episode depressed, mild; E66.9 Obesity, unspecified; R94.30 Abnormal result of cardiovascular function study, unspecified; Z79.899 Other long term (current) drug therapy
CPT/HCPCS: 36415; 80061; 80076; 83036

== ENCOUNTER 2017-11-30 19:03 | Emergency (ER) | payer BC ==
[2017-11-30] MEDS ORDERED: ASPIRIN 81 MG TABLET, CHEWABLE PO ONE (19:24)
--- NOTE | 2017-11-30 19:27 | ER Document Report ---
ED Medical Screen (RME) - General Chief Complaint: Chest Pain Stated Complaint: CHEST PRESSURE,NAUSEA Time Seen by Provider: 11/30/17 19:21 Notes: RAPID MEDICAL EVALUATION DISCLOSURE I have seen this patient as part of a Rapid Medical Evaluation and, if applicable, placed any initially appropriate orders. The patient will be seen and fully evaluated, including a full history and physical exam, by a provider ( in Main ED or Fast Track) when a room becomes available. 39-year-old female here with complaints of midsternal chest heaviness shortness of breath lightheadedness ongoing for the past few days. She reports she feels like she just cannot get a deep breath. Symptoms are not worse with exertion or deep breathing. She had a recent cardiac catheterization within the last 2 years and "they only found a little bit of blockage". Denies prior history of PE or DVT. EXAM CTAB RRR TRAVEL OUTSIDE OF THE [place] IN LAST 30 DAYS: No - Related Data Allergies/Adverse Reactions: cephalexin monohydrate [From Keflex] Allergy (Intermediate, Verified 11/30/17 19 :21) DIFFICULTY BREATHING,SUNBURN TYPE RASH lamotrigine [From Lamictal] Allergy (Verified 11/30/17 19:21) UNKNOWN Penicillins Allergy (Verified 11/30/17 19:21) RASH Past Medical History - Social History Chew tobacco use (# tins/day): No Frequency of alcohol use: None Drug Abuse: None - Past Medical History Cardiac Medical History: Reports: Hx Hypercholesterolemia, Hx Hypertension - Tx Denies: Hx Coronary Artery Disease, Hx Heart Attack Pulmonary Medical History: Reports: Hx Asthma - Neb & Inhaler, Hx Pneumonia Denies: Hx Bronchitis, Hx COPD, Hx Tuberculosis Neurological Medical History: Denies: Hx Cerebrovascular Accident, Hx Seizures Endocrine Medical History: Reports: Hx Diabetes Mellitus Type 2 Renal/ Medical History: Denies: Hx Peritoneal Dialysis Musculoskeltal Medical History: Denies Hx Arthritis Psychiatric Medical History: Reports: Hx Bipolar Disorder, Hx Schizophrenia Past Surgical History: Reports: Hx Cholecystectomy, Hx Gynecologic Surgery - right ovary, Hx Tonsillectomy, Hx Tubal Ligation. Denies: Hx Hysterectomy - Immunizations Hx Diphtheria, Pertussis, Tetanus Vaccination: No Physical Exam - Vital signs Vitals: Temp Pulse Resp BP Pulse Ox 97.9 F 77 22 H 151/92 H 97 11/30/17 19:13 11/30/17 19:13 11/30/17 19:13 11/30/17 19:13 11/30/17 19:13 Course - Vital Signs Vital signs: Temp Pulse Resp BP Pulse Ox 97.9 F 77 22 H 151/92 H 97 11/30/17 19:13 11/30/17 19:13 11/30/17 19:13 11/30/17 19:13 11/30/17 19:13 Doctor's Discharge - Discharge Referrals: RODGER WAGGONER MD [Primary Care Provider] - Follow up as needed
--- NOTE | 2017-11-30 19:57 | RADIOLOGY REPORT (SQ) ---
EXAM DESCRIPTION: CHEST 2 VIEWS COMPLETED DATE/TIME: 11/30/2017 7:46 pm REASON FOR STUDY: CP COMPARISON: 08/05/2017 EXAM PARAMETERS: NUMBER OF VIEWS: two views TECHNIQUE: Digital Frontal and Lateral radiographic views of the chest acquired. RADIATION DOSE: NA LIMITATIONS: none FINDINGS: LUNGS AND PLEURA: No opacities, masses or pneumothorax. No pleural effusion. MEDIASTINUM AND HILAR STRUCTURES: No masses or contour abnormalities. HEART AND VASCULAR STRUCTURES: Heart normal size. No evidence for failure. BONES: No acute findings. HARDWARE: None in the chest. OTHER: No other significant finding. IMPRESSION: NO ACUTE RADIOGRAPHIC FINDING IN THE CHEST. TECHNICAL DOCUMENTATION: JOB ID: [id number] [employer]- All Rights Reserved Reading location - IP/workstation name: [email or web address]
[2017-11-30 20:57] LABS: ABSOLUTE BASOPHILS # (AUTO) 0.1 10^3/uL (0.0-0.2); ABSOLUTE EOSINOPHILS # (AUTO) 0.4 10^3/uL (0.0-0.6); ABSOLUTE LYMPHOCYTES (AUTO) 3.3 10^3/uL (0.5-4.7); ABSOLUTE MONOCYTES (AUTO) 0.7 10^3/uL (0.1-1.4); EOSINOPHILS % (AUTO) 3.2 % (0-6); HEMATOCRIT 40.5 % (36.0-47.0); HEMOGLOBIN 13.4 g/dL (12.0-15.5); LYMPHOCYTES % (AUTO) 28.4 % (13-45); MEAN CORPUSCULAR HEMOGLOBIN 28.1 pg (27.0-33.4); MEAN CORPUSCULAR VOLUME 85 fl (80-97); MONOCYTES % (AUTO) 6.3 % (3-13); PLATELET COUNT 352 10^3/uL (150-450); RED BLOOD COUNT 4.76 10^6/uL (3.72-5.28); RED CELL DISTRIBUTION WIDTH 15.3 % (11.5-14.0); SEGMENTED NEUTROPHILS % (AUTO) 61.1 % (42-78); TOTAL CELLS COUNTED % (AUTO) 100 %; WHITE BLOOD COUNT 11.5 10^3/uL (4.0-10.5)
[2017-11-30 22:02] LABS: ALANINE AMINOTRANSFERASE 32 U/L (9-52); ALBUMIN 4.1 g/dL (3.5-5.0); ALKALINE PHOSPHATASE 100 U/L (38-126); ANION GAP 13 (5-19); ASPARTATE AMINO TRANSFERASE 27 U/L (14-36); BILIRUBIN,DIRECT 0.3 mg/dL (0.0-0.4); BILIRUBIN,TOTAL 0.3 mg/dL (0.2-1.3); BLOOD UREA NITROGEN 14 mg/dL (7-20); CALCIUM 10.1 mg/dL (8.4-10.2); CARBON DIOXIDE 25 mmol/L (22-30); CHLORIDE 103 mmol/L (98-107); GLUCOSE 105 mg/dL (75-110); LIPASE 125.9 U/L (23-300); POTASSIUM 4.2 mmol/L (3.6-5.0); SODIUM 141.1 mmol/L (137-145)
--- NOTE | 2017-11-30 22:12 | EKG REPORT ---
SEVERITY:- BORDERLINE ECG - SINUS RHYTHM BORDERLINE T ABNORMALITIES, ANTERIOR LEADS : Confirmed by: Tita Baker MD 30-Nov-2017 22:10:26
--- NOTE | 2017-11-30 23:07 | ER Document Report ---
ED Cardiac - General Information source: Patient TRAVEL OUTSIDE OF THE [place] IN LAST 30 DAYS: No <ALLYSON BEDOYA - Last Filed: 12/01/17 01:06> <HUGO MACIAS - Last Filed: 12/01/17 02:48> - General Chief Complaint: Chest Pain Stated Complaint: CHEST PRESSURE,NAUSEA Time Seen by Provider: 11/30/17 19:21 Notes: Patient is a 47-year-old female who presents to the emergency department today with complaints of a chest pressure described as heaviness. Patient states she had similar symptoms 2 years ago and subsequently had a cardiac catheterization with no stents placed. Patient states she has had mild nausea off and on for the last 3 or 4 days along with this chest pressure. Patient denies any abdominal pain, vomiting, diarrhea, fevers, bad food, or pain with breathing. ( ALLYSON BEDOYA) - Related Data Allergies/Adverse Reactions: cephalexin monohydrate [From Keflex] Allergy (Intermediate, Verified 11/30/17 19 :21) DIFFICULTY BREATHING,SUNBURN TYPE RASH lamotrigine [From Lamictal] Allergy (Verified 11/30/17 19:21) UNKNOWN Penicillins Allergy (Verified 11/30/17 19:21) RASH Past Medical History - General Information source: Patient - Social History Smoking Status: Never Smoker Cigarette use (# per day): No Chew tobacco use (# tins/day): No Frequency of alcohol use: None Drug Abuse: None Lives with: Family Family History: Reviewed & Not Pertinent, DM Patient has suicidal ideation: No Patient has homicidal ideation: No - Past Medical History Cardiac Medical History: Reports: Hx Hypercholesterolemia, Hx Hypertension - Tx Pulmonary Medical History: Reports: Hx Asthma - Neb & Inhaler, Hx Pneumonia Endocrine Medical History: Reports: Hx Diabetes Mellitus Type 2 Psychiatric Medical History: Reports: Hx Bipolar Disorder, Hx Schizophrenia Past Surgical History: Reports: Hx Cholecystectomy, Hx Gynecologic Surgery - right ovary, Hx Tonsillectomy, Hx Tubal Ligation - Immunizations Hx Diphtheria, Pertussis, Tetanus Vaccination: No Hx Pneumococcal Vaccination: 04/29/13 <ALLYSON BEDOYA - Last Filed: 12/01/17 01:06> Review of Systems - Review of Systems Constitutional: denies: Fever EENT: No symptoms reported Cardiovascular: See HPI, Chest pain Respiratory: denies: Hurts to breathe Gastrointestinal: See HPI, Nausea. denies: Abdominal pain, Diarrhea, Vomiting Genitourinary: No symptoms reported Female Genitourinary: No symptoms reported Musculoskeletal: No symptoms reported Skin: No symptoms reported Hematologic/Lymphatic: No symptoms reported Neurological/Psychological: No symptoms reported -: Yes All other systems reviewed and negative <ALLYSON BEDOYA - Last Filed: 12/01/17 01:06> Physical Exam <ALLYSON BEDOYA - Last Filed: 12/01/17 01:06> <HUGO MACIAS - Last Filed: 12/01/17 02:48> - Vital signs Vitals: Temp Pulse Resp BP Pulse Ox 97.9 F 77 22 H 151/92 H 97 11/30/17 19:13 11/30/17 19:13 11/30/17 19:13 11/30/17 19:13 11/30/17 19:13 - Notes Notes: Physical Exam: General: Alert, appears well. HEENT: Normocephalic. Atraumatic. PERRL. Extraocular movements intact. Oropharynx clear. Neck: Supple. Non-tender. Respiratory: No respiratory distress. Clear and equal breath sounds bilaterally. Cardiovascular: Regular rate and rhythm. Abdominal: Obese. Non-tender. No distension. Normal Bowel Sounds. Back: Non-tender. No deformity or step off. Extremities: Moves all four extremities. Upper extremities: Normal inspection. Normal ROM. Lower extremities: Normal inspection. No edema. Normal ROM. Neurological: Normal cognition. AAOx4. Normal speech. Psychological: Normal affect. Normal Mood. Skin: Warm. Dry. Normal color. (ALLYSON BEDOYA) Course - Laboratory Result Diagrams: 11/30/17 20:42 11/30/17 21:29 <ALLYSON BEDOYA - Last Filed: 12/01/17 01:06> - Laboratory Result Diagrams: 11/30/17 20:42 11/30/17 21:29 - Diagnostic Test Radiology reviewed: Reports reviewed - EKG Interpretation by Or EKG shows normal: Sinus rhythm Rate: Normal Rhythm: NSR <HUGO MACIAS - Last Filed: 12/01/17 02:48> - Re-evaluation Re-evalutation: 12/01/17 02:47 Patient is a 47-year-old female who presents complaining of nausea with chest pressure that she has had for a few days. Patient had a cardiac catheterization 2 years ago and no need for intervention at that time. Symptoms are resolved with Carafate, omeprazole, and Zofran. Patient is tolerating p.o. with no further symptoms. EKG within normal limits. Troponin negative 2. Patient is instructed to follow-up with her doctor. Understands and agrees with plan. Feels better would like to go home. Stable for discharge. Return if any worsening or concerning symptoms. (HUGO MACIAS) - Vital Signs Vital signs: Temp Pulse Resp BP Pulse Ox 97.9 F 77 13 118/57 L 98 11/30/17 19:13 11/30/17 19:13 12/01/17 02:01 12/01/17 02:00 12/01/17 02:00 - Laboratory Laboratory results interpreted by me: 11/30/17 20:42 WBC 11.5 H RDW 15.3 H Discharge <ALLYSON BEDOYA - Last Filed: 12/01/17 01:06> <HUGO MACIAS - Last Filed: 12/01/17 02:48> - Discharge Clinical Impression: Atypical chest pain, Probable GERD Condition: Stable Disposition: HOME, SELF-CARE Instructions: Chest Pain of Unclear Cause ([facility]), Reflux Disease (GERD) ([facility]) Prescriptions: Ondansetron [Zofran Odt 4 mg Tablet] 4 mg PO Q4HP PRN #30 tab.rapdis PRN Reason: Omeprazole 20 mg PO DAILY #30 capsule. Sucralfaemy [Carafate 1 gm Tablet] 1 gm PO ACHS #120 tablet Forms: Return to Work Referrals: RODGER WAGGONER MD [ACTIVE STAFF] - Follow up in 3-5 days Scribe Attestation: 12/01/17 02:48 I personally performed the services described in the documentation, reviewed and edited the documentation which was dictated to the scribe in my presence, and it accurately records my words and actions. (HUGO MACIAS) Scribe Documentation - Scribe Written by Scribe:: Vijay Tay, 11/30/2017 [id number] acting as scribe for Dr.:: Sudheer <ALLYSON BEDOYA - Last Filed: 12/01/17 01:06>
[2017-11-30] MEDS ORDERED: SUCRALFATE 1 GM TABLET PO ONE (23:08)
[2017-11-30] MEDS ORDERED: ONDANSETRON 4 MG TAB.RAPDIS PO ONE (23:08)
[2017-11-30] MEDS ORDERED: LANSOPRAZOLE 15 MG TAB.RAP.DR PO ONE (23:08)
[2017-12-01 02:10] VITALS: BP 118/57
== END 2017-12-01 02:05 | disposition home or self-care (01) ==
LOC: ER 19:03
DX: R07.89 Other chest pain (principal); R11.0 Nausea; I10 Essential (primary) hypertension; J45.909 Unspecified asthma, uncomplicated; E11.9 Type 2 diabetes mellitus without complications; Z88.1 Allergy status to other antibiotic agents; Z88.0 Allergy status to penicillin; Z88.8 Allergy status to other drugs, medicaments and biological substances
CPT/HCPCS: 93005; 99285; 36415; 83690; 85025; 80053; 84484; 71046; 93010; S0119

== ENCOUNTER 2018-01-24 08:55 | Emergency (ER) | payer BC ==
[2018-01-24 09:03] VITALS: BP 120/72
[2018-01-24] MEDS ORDERED: FAMOTIDINE 20 MG TABLET PO ONE (09:32)
[2018-01-24] MEDS ORDERED: PREDNISONE 20 MG TABLET PO ONE (09:32)
--- NOTE | 2018-01-24 09:46 | ER Document Report ---
ED Skin Rash/Insect Bite/Abscs - General Chief Complaint: Rash Stated Complaint: POSSIBLE RASH Time Seen by Provider: 01/24/18 09:32 Mode of Arrival: Ambulatory Information source: Patient Notes: The 47-year-old female presents to ED for rash generalized. She states stayed in the motel 2 days ago and now she has a large very itchy bites to her arms legs abdomen back and buttocks. She states they are very itchy and burn. She is alert and oriented respirations regular and unlabored speaks with full sentences. TRAVEL OUTSIDE OF THE [place] IN LAST 30 DAYS: No - HPI Patient complains to provider of: Insect bite Onset: Other - 2 days Onset/Duration: Gradual, Worse Quality of pain: Burning Severity: Mild Pain Level: 1 Skin Character: Erythema, Urticarial Quality of rash: Itchy, Burning Identify cause: Yes Exacerbated by: Denies Relieved by: Denies Similar symptoms previously: No Recently seen / treated by doctor: No - Related Data Allergies/Adverse Reactions: cephalexin monohydrate [From Keflex] Allergy (Intermediate, Verified 01/24/18 08 :57) DIFFICULTY BREATHING,SUNBURN TYPE RASH lamotrigine [From Lamictal] Allergy (Verified 01/24/18 08:57) UNKNOWN Penicillins Allergy (Verified 01/24/18 08:57) RASH Past Medical History - General Information source: Patient - Social History Smoking Status: Former Smoker Cigarette use (# per day): No Chew tobacco use (# tins/day): No Smoking Education Provided: No Frequency of alcohol use: None Drug Abuse: None Lives with: Family Family History: Reviewed & Not Pertinent, DM Patient has suicidal ideation: No Patient has homicidal ideation: No - Past Medical History Cardiac Medical History: Reports: Hx Hypercholesterolemia, Hx Hypertension - Tx Pulmonary Medical History: Reports: Hx Asthma - Neb & Inhaler, Hx Pneumonia EENT Medical History: Reports: None Neurological Medical History: Reports: None Endocrine Medical History: Reports: Hx Diabetes Mellitus Type 2 Renal/ Medical History: Reports: None Malignancy Medical History: Reports: None GI Medical History: Reports: None Musculoskeletal Medical History: Reports None Skin Medical History: Reports None Psychiatric Medical History: Reports: Hx Bipolar Disorder, Hx Schizophrenia Traumatic Medical History: Reports: None Infectious Medical History: Reports: None Past Surgical History: Reports: Hx Cholecystectomy, Hx Gynecologic Surgery - right ovary, Hx Tonsillectomy, Hx Tubal Ligation - Immunizations Hx Diphtheria, Pertussis, Tetanus Vaccination: No Hx Pneumococcal Vaccination: 04/29/13 Review of Systems - Review of Systems Constitutional: No symptoms reported EENT: No symptoms reported Cardiovascular: No symptoms reported Respiratory: No symptoms reported Gastrointestinal: No symptoms reported Genitourinary: No symptoms reported Female Genitourinary: No symptoms reported Musculoskeletal: No symptoms reported Skin: Other - Insect welts arms legs buttocks back and abdomen chest Hematologic/Lymphatic: No symptoms reported Neurological/Psychological: No symptoms reported -: Yes All other systems reviewed and negative Physical Exam - Vital signs Vitals: Temp Pulse Resp BP Pulse Ox 98.0 F 67 18 120/72 96 01/24/18 08:59 01/24/18 08:59 01/24/18 08:59 01/24/18 08:59 01/24/18 08:59 Interpretation: Normal - General General appearance: Appears well, Alert - HEENT Head: Normocephalic, Atraumatic Eyes: Normal Pupils: PERRL - Respiratory Respiratory status: No respiratory distress Chest status: Nontender Breath sounds: Normal Chest palpation: Normal - Cardiovascular Rhythm: Regular Heart sounds: Normal auscultation Murmur: No - Abdominal Inspection: Normal Distension: No distension Bowel sounds: Normal Tenderness: Nontender Organomegaly: No organomegaly - Back Back: Normal, Nontender - Extremities General upper extremity: Normal inspection, Nontender, Normal color, Normal ROM , Normal temperature General lower extremity: Normal inspection, Nontender, Normal color, Normal ROM , Normal temperature, Normal weight bearing. No: Kevin's sign - Neurological Neuro grossly intact: Yes Cognition: Normal Orientation: AAOx4 Jennie Coma Scale Eye Opening: Spontaneous Jennie Coma Scale Verbal: Oriented Jennie Coma Scale Motor: Obeys Commands Lyman Coma Scale Total: 15 Speech: Normal Motor strength normal: LUE, RUE, LLE, RLE Sensory: Normal - Psychological Associated symptoms: Normal affect, Normal mood - Skin Skin Temperature: Warm Skin Moisture: Dry Skin Color: Normal Location of irregularity: Generalized Character of irregularity: Erythematous, Urticarial Irregularity with: Swelling, Tenderness Course - Re-evaluation Re-evalutation: 01/24/18 09:51 Patient states she developed large itchy burning welts after staying in a motel 2 days ago. Patient was treated with prednisone and Pepcid in the emergency room was discharged home with instructions to use Benadryl when she got home. Patient was discharged home with prescription for prednisone and Pepcid. Patient was given instructions concerning care of her home for bedbugs as this is what the what appeared to be from. Patient was shown a picture of a bedbug and instructed to check her luggage in her room to ensure there was no bedbugs at her house. Patient verbalized understanding and agreement with treatment plan. - Vital Signs Vital signs: Temp Pulse Resp BP Pulse Ox 98.0 F 67 18 120/72 96 01/24/18 08:59 01/24/18 08:59 01/24/18 08:59 01/24/18 08:59 01/24/18 08:59 Discharge - Discharge Clinical Impression: Insect bite, multiple Condition: Stable Disposition: HOME, SELF-CARE Additional Instructions: Insect Bites You have been bitten by an insect. These bites can cause two types of swelling: an initial swelling due to insect saliva or injected poison, and a late reaction due to your body's allergic reaction. This initial local reaction may be uncomfortable but is not dangerous. Often there's an itchy "hive" at the bite location. This is treated with antihistamines, cold compresses, and resting the affected body part. The later reaction often develops about the second day. The entire area becomes very swollen, red, itchy, and tender. This is an allergic reaction. Your body is attacking the leftover insect saliva or venom. This type of allergy is unpleasant, but not dangerous. We treat this swelling with cortisone -type medicine. Sometimes we use antibiotics if we're worried about infection. Antihistamines help with the itch. If you develop a fever, chills, a red streak, or swollen glands in the area of the bite, infection may be starting. Return at once. ACUTE ALLERGIC REACTION: Your symptoms are due to an allergic reaction. Allergy can cause hives, swelling of the hands, feet, and face, hoarseness, and difficulty swallowing or breathing. It may be due to exposure to medication, animal dander, foods, infection, or insect bites. Medication is a common cause, even when prior use of this same medication caused no problems. Acute treatment may include adrenalin and antihistamines. Usually, the specific allergic agent can't be identified unless repeated episodes occur. Home treatment includes the following: (1) Stop any suspicious medications. This will be discussed with you. (2) Oral antihistamines for the next four to five days. Example, diphenhydramine (Benadryl) every four hours. (3) You may also use cimetidine (Tagamet), ranitidine (Zantac), or famotidine ( Pepcid) every four hours if diphenhydramine is not controlling itching and hives. (4) Avoid aspirin until the hives completely disappear. (5) Avoid hot baths or showers until the hives are completely gone. Call the doctor if faintness, difficulty swallowing, tightness in the chest , or wheezing occurs. STEROID MEDICATION: You have been given a medicine of the cortisone/steroid class. This medication is used to control inflammation or allergy. It is usually only given for a short period of time, until the acute process subsides. There are usually no side effects from short-term use of cortisone-like medications. Some persons feel an increased sense of well-being and are not sleepy at bedtime. Long-term use of cortisone medications is best avoided, unless required for a severe condition. If your condition does not remit, or relapses after the course of corticosteroid medication, you should consult your physician. ACID-SUPPRESSING MEDICATION: You have a prescription for medicine which reduces the stomach's secretion of acid. Examples include Zantac, Tagament, and Pepcid. These drugs are often used to allow healing of ulcers or esophagitis. They may be needed to prevent recurrence of ulcers in some patients, or to prevent damage from acid reflux in the esophagus. Take all medication as prescribed, even after the pain is gone. Regular antacids may be added as needed if you have symptoms while taking this medicine. These medications sometimes are prescribed for allergic reactions because they have anti-histaminic effects and relieve the rash and itching of the reaction. There are usually no side effects from this medication. But, in rare cases and particularly in the elderly, serious problems can occur. Contact your doctor if there is fever, rash, hallucinations, confusion, or unusual bruising. Contact your doctor at once if you develop lightheadedness, black or bloody stool, or bloody vomitus. USE OF DIPHENHYDRAMINE: The use of diphenhydramine (Benadryl) has been recommended to control allergic symptoms. The 25 mg strength is available over- the-counter, as well as the elixir. This antihistamine is used for many symptoms. It's useful for itching, watering eyes and nose, allergic swelling, hives, and insect stings. The medication can be repeated four times daily. Age Elixir (12.5 mg/tsp) 25 mg pill 2-3 yr 1/2 tsp 4-8 yr 1 tsp 9-14 yr 2 tsp one tab adult 1-2 tabs Antihistamines may cause drowsiness, especially with the first dose. Do not operate machinery or drive while under the effects of the medication. Do not combine the medication with alcohol, or with any other medication without talking to your doctor. FOLLOW-UP CARE: If you have been referred to a physician for follow-up care, call the physician s office for an appointment as you were instructed or within the next two days. If you experience worsening or a significant change in your symptoms, notify the physician immediately or return to the Emergency Department at any time for re-evaluation. Prescriptions: Famotidine [Pepcid 20 mg Tablet] 20 mg PO BID #12 tablet Prednisone [Deltasone 20 mg Tablet] 2 tab PO DAILY 3 Days tablet Referrals: JESSICA KELLY MD [Primary Care Provider] - Follow up as needed
== END 2018-01-24 09:54 | disposition home or self-care (01) ==
LOC: ER 08:55
DX: S40.869A Insect bite (nonvenomous) of unspecified upper arm, initial encounter (principal); S80.869A Insect bite (nonvenomous), unspecified lower leg, initial encounter; S30.861A Insect bite (nonvenomous) of abdominal wall, initial encounter; S30.860A Insect bite (nonvenomous) of lower back and pelvis, initial encounter; W57.XXXA Bitten or stung by nonvenomous insect and other nonvenomous arthropods, initial encounter; E11.9 Type 2 diabetes mellitus without complications; J45.909 Unspecified asthma, uncomplicated; I10 Essential (primary) hypertension; Z88.1 Allergy status to other antibiotic agents; Z88.8 Allergy status to other drugs, medicaments and biological substances; Z88.0 Allergy status to penicillin; Z87.891 Personal history of nicotine dependence
CPT/HCPCS: 99282; J7512

== ENCOUNTER → 2018-06-24 | Outpatient (CLI) | payer BC ==
--- NOTE | 2018-06-24 10:48 | WOMENS IMAGING REPORT ---
EXAM DESCRIPTION: BILAT SCREENING MAMMO W/CAD COMPLETED DATE/TIME: 06/24/2018 10:23 am REASON FOR STUDY: SCREENING MAMMO Z12.31 ENCNTR SCREEN MAMMOGRAM FOR MALIGNANT NEOPLASM OF ONEAL COMPARISON: [id number] TECHNIQUE: Standard craniocaudal and mediolateral oblique views of each breast recorded using digita l acquisition. LIMITATIONS: None. FINDINGS: No masses, calcifications or architectural distortion. No areas of suspicion. Read with the assistance of CAD. .[facility] - R2 Cenova Version 1.3 .[facility] - R2 Cenova Version 1.3 .[facility] - R2 Cenova Version 2.4 .[facility] - R2 Cenova Version 2.4 .[facility] - R2 Check Out Clerk Version 9.2 IMPRESSION: NORMAL MAMMOGRAM. BIRADS 1. BREAST DENSITY: b. There are scattered areas of fibroglandular density. BIRAD: 1 NEGATIVE RECOMMENDATION: ROUTINE SCREENING COMMENT: The patient has been notified of the results by letter per MQSA requirements. Additional no tification policies are in place for contacting patient with suspicious or incomplete findings. Quality ID #[id number]: The [employer] recommends an annual screening mammogram for women aged 40 years or over. This facility utilizes a reminder system to ensure that all patients receive reminder letters, and/or direct phone calls for appointments. This includes reminders for routine scr eening mammograms, diagnostic mammograms, or other Breast Imaging Interventions when appropriate. Th is patient will be placed in the appropriate reminder system. The [employer] (A[employer]) has developed recommendations for screening MRI of the breast s in certain patient populations, to be used in conjunction with mammography. Breast MRI surveillanc e may be appropriate for women with more than 20% lifetime risk of developing breast cancer as deter mined by genetic testing, significant family history of the disease, or history of mantle radiation f or Hodgkins Disease. ACR Practice Guidelines 2008. TECHNICAL DOCUMENTATION: FINDING NUMBER: (1) ASSESSMENT: (1) JOB ID: [id number] [email or web address]- All Rights Reserved Reading location - IP/workstation name: [facility]-RR2
== END ==
LOC: WI 10:05
PROVIDERS: ATTEND Physician Assistant
DX: Z12.31 Encounter for screening mammogram for malignant neoplasm of breast (principal)
CPT/HCPCS: 77067

== ENCOUNTER 2018-06-27 16:47 | Emergency (ER) | payer BC ==
--- NOTE | 2018-06-27 18:08 | ER Document Report ---
ED Oral Problem - General Chief Complaint: Toothache Stated Complaint: TOOTH PAIN Time Seen by Provider: 06/27/18 17:51 Mode of Arrival: Ambulatory Information source: Patient Notes: Patient is a well-nourished well-developed 39-year-old female comes emergency room complaint of left upper back molar dental pain. She states that she has been broken off for quite a while and she is supposed to have an oral surgeon take it out but she has not received a referral to do so yet. This tooth again started her on Wednesday night at 1 AM in the morning and has been relentless since that period of time. She states that it is throbbing and she is unable to eat or drink anything. She admits to history of asthma she used to have hypertension but she had bariatric surgery and has lost enough weight that her blood pressures better. So he took her off medication. She says that she attempted to contact the dentist today however all of them were closed and because of the new year. TRAVEL OUTSIDE OF THE [place] IN LAST 30 DAYS: No - HPI Patient complains to provider of: Swelling of face Onset: Other - 2 days ago Onset: Gradual Quality of pain: Cramping, Sharp, Stabbing Severity: Moderate Pain Level: 4 Context: Fractured tooth Swollen jaw/face: Mild Associated symptoms: Jaw pain Worsened by: Heat Relieved by: Nothing Similar symptoms previously: Yes Recently seen / treated by doctor/dentist: No - Related Data Allergies/Adverse Reactions: cephalexin monohydrate [From Keflex] Allergy (Intermediate, Verified 01/24/18 08:57) DIFFICULTY BREATHING,SUNBURN TYPE RASH lamotrigine [From Lamictal] Allergy (Verified 01/24/18 08:57) UNKNOWN Penicillins Allergy (Verified 01/24/18 08:57) RASH Past Medical History - General Information source: Patient, Relative - Social History Smoking Status: Never Smoker Cigarette use (# per day): No Chew tobacco use (# tins/day): No Smoking Education Provided: No Frequency of alcohol use: None Drug Abuse: None Lives with: Alone Family History: Reviewed & Not Pertinent, DM - Past Medical History Cardiac Medical History: Reports: Hx Hypercholesterolemia, Hx Hypertension - Tx Denies: Hx Coronary Artery Disease, Hx Heart Attack Pulmonary Medical History: Reports: Hx Asthma - Neb & Inhaler, Hx Pneumonia Denies: Hx Bronchitis, Hx COPD, Hx Tuberculosis Neurological Medical History: Denies: Hx Cerebrovascular Accident, Hx Seizures Endocrine Medical History: Reports: Hx Diabetes Mellitus Type 2 Renal/ Medical History: Denies: Hx Peritoneal Dialysis Musculoskeletal Medical History: Denies Hx Arthritis Psychiatric Medical History: Reports: Hx Bipolar Disorder, Hx Schizophrenia Past Surgical History: Reports: Hx Cholecystectomy, Hx Gynecologic Surgery - right ovary, Hx Tonsillectomy, Hx Tubal Ligation. Denies: Hx Hysterectomy - Immunizations Hx Diphtheria, Pertussis, Tetanus Vaccination: No Hx Pneumococcal Vaccination: 04/29/13 Review of Systems - Review of Systems Constitutional: No symptoms reported EENT: Dental problem Cardiovascular: No symptoms reported Respiratory: No symptoms reported Gastrointestinal: No symptoms reported Genitourinary: No symptoms reported Female Genitourinary: No symptoms reported Musculoskeletal: No symptoms reported Skin: No symptoms reported Hematologic/Lymphatic: No symptoms reported Neurological/Psychological: No symptoms reported -: Yes All other systems reviewed and negative Physical Exam - Vital signs Vitals: Temp Pulse Resp BP Pulse Ox 97.8 F 64 18 120/81 98 06/27/18 16:55 06/27/18 16:55 06/27/18 16:55 06/27/18 16:55 06/27/18 16:55 Interpretation: Normal - Notes Notes: PHYSICAL EXAMINATION: GENERAL: Patient is a well-nourished well-developed morbidly obese 47-year-old female who is in no apparent distress on physical exam tonight. She does appear somewhat uncomfortable though. HEAD: Atraumatic, normocephalic. EYES: Pupils equal round and reactive to light, extraocular movements intact, conjunctiva are normal. ENT: Examination patient's oral cavity shows that she has a area in the left upper molar area where the tooth is broken off and is down to the gumline. There is moderate erythema surrounding the hole where the tooth was more the enamel still is present. Any application of pressure to the local area causes a little bit of pus to come out from the tooth gumline. The gumline is very erythematous and and angry appearing. NECK: Normal range of motion, supple without lymphadenopathy LUNGS: Auscultation patient's lung obando show she has bilateral breath sounds breath sounds are increased and clear to auscultation. There is no rhonchi rales or wheeze noted.. Female : deferred Musculoskeletal: Normal range of motion, no pitting or edema. No cyanosis. NEUROLOGICAL: Normal speech, normal gait. Normal sensory, motor exams PSYCH: Normal mood, normal affect. SKIN: Warm, Dry, normal turgor, no rashes or lesions noted. Course - Re-evaluation Re-evalutation: 06/27/18 18:03 I offered patient a dental block and she graciously accepted saying anything to get her out of pain. Also use 1 mL of 1% Sensorcaine and 1 mL of lidocaine without any epi in either. I injected just anterior to tooth #2 into the cheek and gum crepitus the patient received good relief fairly quickly. After about 5 minutes patient stated she got 100% relief of her pain and discomfort with a dental block. 06/27/18 20:46 - Vital Signs Vital signs: Temp Pulse Resp BP Pulse Ox 97.9 F 65 16 139/74 H 100 06/27/18 18:19 06/27/18 18:19 06/27/18 18:19 06/27/18 18:19 06/27/18 18:19 Discharge - Discharge Clinical Impression: Dental abscess, Dental infection Condition: Stable Disposition: HOME, SELF-CARE Instructions: Abscess ([facility]), [facility], Clindamycin ([facility]), Oral Narcotic Medication ([facility]), Toothache ([facility]) Additional Instructions: Dental Infection or Abscess You have an infection, perhaps an abscess (pus formation) of the gum around one of your teeth, which is probably decayed. If there is an abscess, it may drain on its own or it may need to be opened or lanced. Severe swelling or drainage around a tooth usually means a deep dental abscess which usually requires evaluation and treatment by a dentist or oral surgeon. Antibiotics may be prescribed while awaiting dental treatment. If you develop high fever with chills, worsening pain, or increasing swelling in the area, see a dentist or oral surgeon immediately or return to the Emergency Department immediately. As of informed you we are not dentists in the cannot make a permanent solution for this problem. We can give you a temporary solution and relief of your discomfort and pain but you must follow-up with a dentist as soon as possible. I am giving the name of a couple of places you may try including [facility] which sometimes has the ability to get dental referrals. This is a more advanced stage type of a presentation since the tooth is broken off at the gumline so may need an oral surgeon but he have to go one step at a time. We will place you on the antibiotics a little pain medication after I done the dental block and contact them on Wednesday to see when they can see you. Should you have any problems or concerns over the holiday return to ER for recheck. Prescriptions: Clindamycin HCl [Cleocin 300 mg Capsule] 300 mg PO BID #40 capsule Fluconazole [Diflucan] 100 mg PO ONCE PRN #1 tablet PRN Reason: Hydrocodone/Acetaminophen [Bath 7.5-325 mg Tablet] 1 tab PO Q6 PRN #15 tablet PRN Reason: Referrals: HUGO LIN PA [Primary Care Provider] - Follow up as needed [facility] - Follow up as needed
[2018-06-27 18:23] VITALS: BP 139/74
== END 2018-06-27 18:23 | disposition home or self-care (01) ==
LOC: ER 16:47
DX: K04.7 Periapical abscess without sinus (principal); K08.89 Other specified disorders of teeth and supporting structures; E66.01 Morbid (severe) obesity due to excess calories; J45.909 Unspecified asthma, uncomplicated; E11.9 Type 2 diabetes mellitus without complications; Z98.84 Bariatric surgery status; Z88.1 Allergy status to other antibiotic agents; Z88.0 Allergy status to penicillin; Z88.8 Allergy status to other drugs, medicaments and biological substances
CPT/HCPCS: 99282

== ENCOUNTER 2018-09-01 17:09 | Emergency (ER) | payer OTHER, BC ==
[2018-09-01 17:37] VITALS: BP 122/70
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
[2018-09-01] MEDS ORDERED: IBUPROFEN 600 MG TABLET PO ONE (21:01)
== END 2018-09-01 21:11 | disposition home or self-care (01) ==
LOC: ER 17:09
DX: R42 Dizziness and giddiness (principal); F17.200 Nicotine dependence, unspecified, uncomplicated; V89.2XXA Person injured in unspecified motor-vehicle accident, traffic, initial encounter; E78.00 Pure hypercholesterolemia, unspecified; I10 Essential (primary) hypertension; E11.9 Type 2 diabetes mellitus without complications; Z90.49 Acquired absence of other specified parts of digestive tract; Z98.51 Tubal ligation status
CPT/HCPCS: 72125; 99284

== ENCOUNTER → 2018-09-12 | Outpatient (CLI) | payer BC ==
--- NOTE | 2018-09-13 08:48 | RADIOLOGY REPORT (SQ) ---
EXAM DESCRIPTION: U/S THYROID/SFT TISS HD NECK COMPLETED DATE/TIME: 09/12/2018 5:51 pm REASON FOR STUDY: E04.1 NONTOXIC SINGLE THYROID NODULE E04.1 NONTOXIC SINGLE THYROID NODULE COMPARISON: 09/01/2018 CT TECHNIQUE: Dynamic and static mendoza-scale images acquired of the thyroid gland. Selected additional c olor/power Doppler images recorded. All images stored to PACS. LIMITATIONS: None. FINDINGS: RIGHT LOBE: Unremarkable in size measuring 5.8 cm in length. There are multiple subcentim eter small hypoechoic nodules throughout the thyroid. The largest hypoechoic nodule within the inter polar region measures 1.1 x 0.9 x 0.9 cm. This demonstrates spongiform composition hypoechoic echote xture, lobulated margin without significant calcifications (TI-RADS 4 lesion). LEFT LOBE: Unremarkable in size measuring 5.6 cm in length. There are multiple subcentimeter thyroid nodules. There is a hypoechoic spongiform nodule within the interpolar region measuring 1.2 x 0.9 x 0.8 cm. This demonstrates a smooth border without significant calcification (TI-RADS 2 lesion). Th ere is additional lower pole nodule measuring 1.7 x 1.0 x 1.2 cm. This mildly hypoechoic nodule demo nstrates a mixed cystic and solid composition, ill-defined margin and macro calcifications (TI-RADS 4 lesion). ISTHMUS: Minimally thickened measuring 5.5 mm. Homogeneous echotexture. No cystic or solid masses. OTHER: No other significant finding. IMPRESSION: Multinodular thyroid as detailed above. 1.1 cm TI-RADS 4 lesion on the right for which follow-up should be considered. 1.7 cm TI-RADS 4 lower pole lesion on the left for which biopsy should be considered. TECHNICAL DOCUMENTATION: JOB ID: [id number] [employer]- All Rights Reserved Reading location - IP/workstation name: [email or web address]
== END ==
LOC: RAD 16:21
PROVIDERS: ATTEND Physician Assistant
DX: E04.1 Nontoxic single thyroid nodule (principal)
CPT/HCPCS: 76536

== ENCOUNTER → 2018-09-23 | Outpatient (CLI) | payer BC | LOC: OD 12:09 | PROVIDERS: ATTEND Surgery | DX: E04.2 Nontoxic multinodular goiter (principal) ==

== ENCOUNTER → 2018-10-05 | Outpatient (CLI) | payer BC ==
[2018-10-05 08:44] LABS: ABSOLUTE BASOPHILS # (AUTO) 0.1 10^3/uL (0.0-0.2); ABSOLUTE EOSINOPHILS # (AUTO) 0.2 10^3/uL (0.0-0.6); ABSOLUTE LYMPHOCYTES (AUTO) 2.4 10^3/uL (0.5-4.7); ABSOLUTE MONOCYTES (AUTO) 0.5 10^3/uL (0.1-1.4); ABSOLUTE NEUT (AUTO) 4.4 10^3/uL (1.7-8.2); BASOPHILS % (AUTO) 0.9 % (0-2); EOSINOPHILS % (AUTO) 3.2 % (0-6); HEMOGLOBIN 13.1 g/dL (12.0-15.5); LYMPHOCYTES % (AUTO) 32.1 % (13-45); MEAN CORPUSCULAR HEMOGLOBIN 30.7 pg (27.0-33.4); MEAN CORPUSCULAR HGB CONC 34.4 g/dL (32.0-36.0); MEAN CORPUSCULAR VOLUME 89 fl (80-97); MONOCYTES % (AUTO) 6.5 % (3-13); PLATELET COUNT 295 10^3/uL (150-450); RED BLOOD COUNT 4.26 10^6/uL (3.72-5.28); RED CELL DISTRIBUTION WIDTH 16.4 % (11.5-14.0); SEGMENTED NEUTROPHILS % (AUTO) 57.3 % (42-78); TOTAL CELLS COUNTED % (AUTO) 100 %; WHITE BLOOD COUNT 7.6 10^3/uL (4.0-10.5)
[2018-10-05 09:08] LABS: ALANINE AMINOTRANSFERASE 25 U/L (9-52); ALBUMIN 3.9 g/dL (3.5-5.0); ALKALINE PHOSPHATASE 71 U/L (38-126); ANION GAP 6 (5-19); ASPARTATE AMINO TRANSFERASE 25 U/L (14-36); BILIRUBIN,DIRECT 0.2 mg/dL (0.0-0.4); BILIRUBIN,TOTAL 0.7 mg/dL (0.2-1.3); BLOOD UREA NITROGEN 11 mg/dL (7-20); CALCIUM 9.9 mg/dL (8.4-10.2); CARBON DIOXIDE 27 mmol/L (22-30); CHLORIDE 108 mmol/L (98-107); CHOLESTEROL 154.64 mg/dL (0-200); GLUCOSE 82 mg/dL (75-110); LITHIUM 0.9 mEq/L (0.6-1.2); SODIUM 140.5 mmol/L (137-145); TOTAL PROTEIN 6.5 g/dL (6.3-8.2); TRIGLYCERIDES 169 mg/dL (<150)
[2018-10-05 09:19] LABS: DIRECT LDL 86 mg/dL (<100)
[2018-10-05 09:22] LABS: VLDL CHOLESTEROL 33.8 mg/dL (10-31)
[2018-10-05 09:27] LABS: POTASSIUM 4.3 mmol/L (3.6-5.0)
== END ==
LOC: OD 07:24
PROVIDERS: ATTEND Nurse Practitioner Psychiatric/Mental Health
DX: F25.0 Schizoaffective disorder, bipolar type (principal)
CPT/HCPCS: 36415; 80053; 80061; 80178; 83036; 85025

== ENCOUNTER 2019-07-07 17:03 | Emergency (ER) | payer BC ==
--- NOTE | 2019-07-07 17:12 | ER Document Report ---
ED Medical Screen (RME) - General Chief Complaint: Numbness of Arm Stated Complaint: FACIAL DROOP, SLURRED SPEECH,ARM PAIN Time Seen by Provider: 07/07/19 17:07 Primary Care Provider: HUGO LIN PA [Primary Care Provider] - Follow up as needed TRAVEL OUTSIDE OF THE [place] IN LAST 30 DAYS: No - HPI Notes: 07/07/19 17:10 Patient is a 48-year-old female who presents complaining of stroke-like symptoms at 3:30 PM today when she was on the phone. Patient states that the left side of her face began drooping, she began slurring her speech, drooling, and feeling left arm discomfort. Patient states that she has a lingering mild headache, but her symptoms resolved in under 30 minutes, but patient does not know exactly how long. She is acting behaving at baseline per spouse. Patient states that she is overall feeling better. She is able to ambulate without difficulty. No fever, chest pain, shortness of breath, abdominal pain. I have treated and performed a rapid initial assessment of this patient. A comprehensive ED assessment and evaluation of the patient, analysis of test results and completion of medical decision making process will be conducted by additional ED providers. PHYSICAL EXAMINATION: GENERAL: Well-appearing, well-nourished and in no acute distress. A&Ox4. Answers questions appropriately. Neuro: NIH 0, GCS 15, cranial nerves grossly intact. - Related Data Allergies/Adverse Reactions: cephalexin monohydrate [From Keflex] Allergy (Intermediate, Verified 07/07/19 17:07) DIFFICULTY BREATHING,SUNBURN TYPE RASH lamotrigine [From Lamictal] Allergy (Verified 07/07/19 17:07) UNKNOWN Penicillins Allergy (Verified 07/07/19 17:07) RASH Past Medical History - Past Medical History Cardiac Medical History: Reports: Hx Hypercholesterolemia, Hx Hypertension - Tx Denies: Hx Coronary Artery Disease, Hx Heart Attack Pulmonary Medical History: Reports: Hx Asthma - Neb & Inhaler, Hx Pneumonia Denies: Hx Bronchitis, Hx COPD, Hx Tuberculosis Neurological Medical History: Denies: Hx Cerebrovascular Accident, Hx Seizures Endocrine Medical History: Reports: Hx Diabetes Mellitus Type 2 Renal/ Medical History: Denies: Hx Peritoneal Dialysis Musculoskeltal Medical History: Denies Hx Arthritis Psychiatric Medical History: Reports: Hx Bipolar Disorder, Hx Schizophrenia Past Surgical History: Reports: Hx Cholecystectomy, Hx Gynecologic Surgery - right ovary, Hx Tonsillectomy, Hx Tubal Ligation. Denies: Hx Hysterectomy - Immunizations Hx Diphtheria, Pertussis, Tetanus Vaccination: No Doctor's Discharge - Discharge Referrals: HUGO LIN PA [Primary Care Provider] - Follow up as needed
--- NOTE | 2019-07-07 18:10 | RADIOLOGY REPORT (SQ) ---
EXAM DESCRIPTION: CHEST SINGLE VIEW COMPLETED DATE/TIME: 07/07/2019 4:53 pm REASON FOR STUDY: possible TIA COMPARISON: None. EXAM PARAMETERS: NUMBER OF VIEWS: One view. TECHNIQUE: Single frontal radiographic view of the chest acquired. RADIATION DOSE: NA LIMITATIONS: None. FINDINGS: LUNGS AND PLEURA: No opacities, masses or pneumothorax. No pleural effusion. MEDIASTINUM AND HILAR STRUCTURES: No masses. Contour normal. HEART AND VASCULAR STRUCTURES: Heart normal in size. Normal vasculature. BONES: No acute findings. HARDWARE: None in the chest. OTHER: No other significant finding. IMPRESSION: NO ACUTE RADIOGRAPHIC FINDING IN THE CHEST. TECHNICAL DOCUMENTATION: JOB ID: [id number] [employer]- All Rights Reserved Reading location - IP/workstation name: [email or web address]
--- NOTE | 2019-07-07 18:15 | RADIOLOGY REPORT (SQ) ---
EXAM DESCRIPTION: CT HEAD WITHOUT COMPLETED DATE/TIME: 07/07/2019 4:59 pm REASON FOR STUDY: resolved stroke symptoms left side 1.5hrs ago COMPARISON: None. TECHNIQUE: Axial images acquired through the brain without intravenous contrast. Images reviewed wi th bone, brain and subdural windows. Images stored on PACS. All CT scanners at this facility use dose modulation, iterative reconstruction, and/or weight based d osing when appropriate to reduce radiation dose to as low as reasonably achievable (ALARA). [facility]: Dose Right [facility]: CareDose [facility]: Dose Right [facility]: Teradose 4D [facility]: [employer] RADIATION DOSE: CT Rad equipment meets quality standard of care and radiation dose reduction techniq ues were employed. CTDIvol: 53.2 mGy. DLP: 911 mGy-cm. mGy. LIMITATIONS: None. FINDINGS: VENTRICLES: Normal size and contour. CEREBRUM: No masses. No hemorrhage. No midline shift. No evidence for acute infarction. Normal gra y/white matter differentiation. No areas of low density in the white matter. CEREBELLUM: No masses. No hemorrhage. No alteration of density. No evidence for acute infarction. EXTRAAXIAL SPACES: No fluid collections. No masses. ORBITS AND GLOBE: No intra- or extraconal masses. Normal contour of globe without masses. CALVARIUM: No fracture. PARANASAL SINUSES: No fluid or mucosal thickening. SOFT TISSUES: No mass or hematoma. OTHER: No other significant finding. IMPRESSION: No acute intracranial hemorrhage, mass, or evidence of acute territorial infarct. EVIDENCE OF ACUTE STROKE: NO. COMMENT: Quality ID # 436: Final reports with documentation of one or more dose reduction techniques (e.g., Automated exposure control, adjustment of the mA and/or kV according to patient size, use of iterative reconstruction technique) TECHNICAL DOCUMENTATION: JOB ID: [id number] [employer]- All Rights Reserved Reading location - IP/workstation name: [email or web address]
[2019-07-07 19:20] LABS: APPEARANCE,URINE CLEAR; BILIRUBIN,URINE NEGATIVE (NEGATIVE); COLOR,URINE STRAW; GLUCOSE, URINE NEGATIVE (NEGATIVE); KETONES,URINE NEGATIVE (NEGATIVE); PROTEIN,URINE NEGATIVE (NEGATIVE); UROBILINOGEN,URINE NEGATIVE mg/dL (<2.0)
[2019-07-07 19:29] LABS: ABSOLUTE BASOPHILS # (AUTO) 0.1 10^3/uL (0.0-0.2); ABSOLUTE EOSINOPHILS # (AUTO) 0.2 10^3/uL (0.0-0.6); ABSOLUTE LYMPHOCYTES (AUTO) 3.2 10^3/uL (0.5-4.7); ABSOLUTE MONOCYTES (AUTO) 0.6 10^3/uL (0.1-1.4); ABSOLUTE NEUT (AUTO) 4.6 10^3/uL (1.7-8.2); EOSINOPHILS % (AUTO) 2.8 % (0-6); HEMATOCRIT 39.9 % (36.0-47.0); HEMOGLOBIN 13.2 g/dL (12.0-15.5); LYMPHOCYTES % (AUTO) 36.8 % (13-45); MEAN CORPUSCULAR HEMOGLOBIN 29.4 pg (27.0-33.4); MEAN CORPUSCULAR VOLUME 89 fl (80-97); MONOCYTES % (AUTO) 6.5 % (3-13); PLATELET COUNT 268 10^3/uL (150-450); RED BLOOD COUNT 4.47 10^6/uL (3.72-5.28); RED CELL DISTRIBUTION WIDTH 14.3 % (11.5-14.0); SEGMENTED NEUTROPHILS % (AUTO) 52.9 % (42-78); TOTAL CELLS COUNTED % (AUTO) 100 %; WHITE BLOOD COUNT 8.7 10^3/uL (4.0-10.5)
[2019-07-07 19:30] LABS: INTERNATIONAL RATION (INR) 0.82; PARTIAL THROMBOPLASTIN TIME 26.3 SEC (23.5-35.8); PROTHROMBIN TIME 11.3 SEC (11.4-15.4)
[2019-07-07 19:46] LABS: ALBUMIN 3.9 g/dL (3.5-5.0); ALKALINE PHOSPHATASE 86 U/L (38-126); ANION GAP 6 (5-19); ASPARTATE AMINO TRANSFERASE 26 U/L (14-36); BILIRUBIN,DIRECT 0.2 mg/dL (0.0-0.4); BILIRUBIN,TOTAL 0.2 mg/dL (0.2-1.3); BLOOD UREA NITROGEN 18 mg/dL (7-20); CARBON DIOXIDE 26 mmol/L (22-30); CHLORIDE 107 mmol/L (98-107); POTASSIUM 4.2 mmol/L (3.6-5.0); TOTAL PROTEIN 6.7 g/dL (6.3-8.2)
[2019-07-07 19:55] LABS: GLUCOSE 68 mg/dL (75-110)
[2019-07-07] MEDS ORDERED: PREDNISONE 20 MG TABLET PO ONE (20:52)
[2019-07-07] MEDS ORDERED: VALACYCLOVIR HCL 500 MG TABLET PO ONE (20:55)
--- NOTE | 2019-07-07 21:01 | EKG REPORT ---
SEVERITY:- BORDERLINE ECG - SINUS RHYTHM BORDERLINE T ABNORMALITIES, INFERIOR LEADS : Confirmed by: Candace Lorenz 07-Jul-2019 21:00:24
[2019-07-07 21:29] VITALS: BP 132/88
--- NOTE | 2019-07-17 11:23 | ER Document Report ---
Entered by ALLYSON BEDOYA SCRIBE 07/07/192007 Acting as scribe for:BEKA HILL IV, MD ED General - General Chief Complaint: Numbness of Arm Stated Complaint: FACIAL DROOP, SLURRED SPEECH,ARM PAIN Time Seen by Provider: 07/07/19 17:07 Primary Care Provider: HUGO LIN PA [Primary Care Provider] - Follow up as needed Information source: Patient, Relative Notes: This 48 year old female patient presents to the emergency department today with complaints of left sided facial droop/weakness and left upper extremity weakness/discomfort. Patient reports that at around 3:30pm today while talking on the telephone she noticed that her speech seemed slurred and that the left side of her face was weak and and drooping. Shortly after the patient describes initial discomfort of the LUE followed shortly after by LUE weakness. Patient adds that all of the above mentioned symptoms subsided prior to arriving at the hospital this evening. The patient and her significant other at bedside both agree that the patient's speech and her weakness were back to baseline. Patient does complain of a slight headache currently. TRAVEL OUTSIDE OF THE [place] IN LAST 30 DAYS: No - Related Data Allergies/Adverse Reactions: cephalexin monohydrate [From Keflex] Allergy (Intermediate, Verified 07/07/19 17:07) DIFFICULTY BREATHING,SUNBURN TYPE RASH lamotrigine [From Lamictal] Allergy (Verified 07/07/19 17:07) UNKNOWN Penicillins Allergy (Verified 07/07/19 17:07) RASH Past Medical History - General Information source: Patient, [facility] Records - Social History Smoking Status: Smoker,Current Status Unk Lives with: Family Family History: Reviewed & Not Pertinent, DM Patient has suicidal ideation: No Patient has homicidal ideation: No - Past Medical History Cardiac Medical History: Reports: Hx Hypercholesterolemia, Hx Hypertension Pulmonary Medical History: Reports: Hx Asthma - Neb & Inhaler, Hx Pneumonia Endocrine Medical History: Reports: Hx Diabetes Mellitus Type 2 Psychiatric Medical History: Reports: Hx Bipolar Disorder, Hx Schizophrenia Past Surgical History: Reports: Hx Cholecystectomy, Hx Gynecologic Surgery - right ovary, Hx Tonsillectomy, Hx Tubal Ligation. Denies: Hx Hysterectomy - Immunizations Hx Diphtheria, Pertussis, Tetanus Vaccination: No Hx Pneumococcal Vaccination: 04/29/13 Review of Systems - Review of Systems Neurological/Psychological: See HPI, Weakness - Left upper extremity, left face, Headaches, Numbness Physical Exam - Vital signs Vitals: Temp Pulse Resp BP Pulse Ox 97.9 F 72 16 142/79 H 100 07/07/19 17:12 07/07/19 17:12 07/07/19 17:12 07/07/19 17:12 07/07/19 17:12 Interpretation: Normal - General General appearance: Appears well, Alert - HEENT Head: Normocephalic, Atraumatic Eyes: Normal Pupils: PERRL - Respiratory Respiratory status: No respiratory distress Chest status: Nontender Breath sounds: Normal Chest palpation: Normal - Cardiovascular Rhythm: Regular Heart sounds: Normal auscultation Murmur: No - Abdominal Inspection: Normal Distension: No distension Bowel sounds: Normal Tenderness: Nontender Organomegaly: No organomegaly - Back Back: Normal, Nontender - Extremities General upper extremity: Normal inspection, Normal ROM, Normal strength. No: Edema General lower extremity: Normal inspection, Normal ROM, Normal strength. 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 Sensory: Normal - Psychological Associated symptoms: Normal affect, Normal mood - Skin Skin Temperature: Warm Skin Moisture: Dry Skin Color: Normal Course - Vital Signs Vital signs: Temp Pulse Resp BP Pulse Ox 98.4 F 74 15 132/88 H 97 07/07/19 21:27 07/07/19 21:27 07/07/19 21:27 07/07/19 21:27 07/07/19 21:27 - Laboratory Result Diagrams: 07/07/19 19:10 07/07/19 19:10 Laboratory results interpreted by me: 07/07/19 07/07/19 07/07/19 19:10 19:10 19:10 RDW 14.3 H PT 11.3 L Glucose 68 L - Diagnostic Test Radiology reviewed: Reports reviewed - EKG Interpretation by Me Additional EKG results interpreted by me: 07/07/19 21:05 EKG obtained on 07/07/2019 at 1739 hrs. was interpreted by this MD. Findings: Normal sinus rhythm, rate 69, P waves preceding QRS complexes, QRS complexes appear narrow, normal axis, there are no patterns of ST segment elevation or depression to suggest acute myocardial ischemia or infarction. Impression: Normal sinus rhythm with nonspecific ST segments. Discharge - Discharge Clinical Impression: Krueger's palsy Condition: Good Disposition: HOME, SELF-CARE Instructions: Krueger's Palsy ([facility]), Steroid Medication Additional Instructions: Return to the Emergency Department without delay if any worse. HOME CARE INSTRUCTIONS & INFORMATION: Thank you for choosing us for your medi evgeny needs. We hope you're satisfied with the care you received. After you leave, you must properly care for your problem and, at the same time, observe its progress. Any condition can change. Some illnesses can change rapidly over hours or days. If your condition worsens, return to the Emergency Department or see your physician promptly. ABOUT YOUR X-RAYS AND EKG'S: If you had an EKG or X-rays taken, they have been read by the Emergency Physician. The X-rays and EKG's will also be read by a Radiologist or Sales Special Agent within 24 hours. If discrepancies are noted, you will be notified by telephone. Please be certain the ED has a correct telephone number & address where you can be reached. Also, realize that some fractures or abnormalities do not show up on initial X-rays. If your symptoms continue, see your physician. ABOUT YOUR LABORATORY TEST: If you had laboratory tests, the results have been reviewed by the Emergency Physician. Some test results (for example cultures) may not be available for several days. You will be contacted if any test result shows you need additional treatment. Please be certain the ED has a correct telephone number and address where you can be reached. ABOUT YOUR MEDICATIONS: You will receive instructions on how to take your medicine on the prescription label you receive. Additional information may be provided by the Pharmacy. If you have questions afterwards, call the ED for clarification or further instructions. Some prescribed medications may cause drowsiness. Do not perform tasks such as driving a car or operating machinery without consulting your Pharmacist. If you feel you need a refill of pain medication, your condition will need re-evaluation. Please do not call for a refill of any medication. ABOUT YOUR SIGNATURE: Signature of this document acknowledges to followin. Understanding that you received emergency treatment and that you may be released before al medical problems are known or treated. Please be certain the ED has a correct phone number & address where you can be reached. 2. Acknowledgement that you will arrange for follow-up care as recommended. 3. Authorization for the Emergency Physician to provide information to your follow-up Physician in order to maximize your care. AT ANY TIME, IF YOUR SYMPTOMS CHANGE SIGNIFICANTLY OR WORSEN OR YOU DEVELOP NEW SYMPTOMS, RETURN TO THE EMERGENCY DEPARTMENT IMMEDIATELY FOR RE-EVALUATION. OUR GOAL IS TO PROVIDE EXCELLENT MEDICAL CARE! WE HOPE THAT WE HAVE MET YOUR EXPECTATIONS DURING YOUR EMERGENCY DEPARTMENT VISIT AND THAT YOU FEEL YOU HAVE RECEIVED EXCELLENT CARE! Prescriptions: Prednisone [Deltasone 20 mg Tablet] 3 tab PO DAILY 4 Days #12 tablet Mineral Oil/Petrolatum,White [Lacri-Lube S.O.P. Ointment 3.5 Gm Tube] 1 applic OS QID 7 Days #1 tube Valacyclovir HCl [Valacyclovir] 1,000 mg PO TID 7 Days #21 tablet Referrals: HUGO LIN PA [Primary Care Provider] - Follow up as needed I personally performed the services described in the documentation, reviewed and edited the documentation which was dictated to the scribe in my presence, and it accurately records my words and actions.
== END 2019-07-07 21:28 | disposition home or self-care (01) ==
LOC: ER 17:03
DX: G51.0 Bell's palsy (principal); R53.1 Weakness; R51 Headache; I10 Essential (primary) hypertension; J45.909 Unspecified asthma, uncomplicated; E11.9 Type 2 diabetes mellitus without complications; Z88.1 Allergy status to other antibiotic agents; Z88.8 Allergy status to other drugs, medicaments and biological substances; Z88.0 Allergy status to penicillin
CPT/HCPCS: 93005; 99284; 36415; 82962; 83735; 85025; 85610; 85730; 80053; 81001; 84484; 71045; 70450; 93010; J7512

== ENCOUNTER → 2019-07-12 | Outpatient (CLI) | payer BC ==
--- NOTE | 2019-07-13 14:00 | WOMENS IMAGING REPORT ---
EXAM DESCRIPTION: BILAT SCREENING MAMMO W/CAD COMPLETED DATE/TIME: 07/12/2019 1:34 pm REASON FOR STUDY: Z12.31 ENCOUNTER FOR SCREENING MAMMOGRAM FOR MALIGNANT NEOPLASM OF BREAST Z12.31 ENCNTR SCREEN MAMMOGRAM FOR MALIGNANT NEOPLASM OF ONEAL COMPARISON: Multiple since 2014 EXAM PARAMETERS: Standard craniocaudal and mediolateral oblique views of each breast recorded using digital acquisition. Read with the assistance of CAD. .[facility] - [employer] Telemetry Technician Version 9.2 LIMITATIONS: None. FINDINGS: No suspicious masses, suspicious calcifications or architectural distortion. No areas of c oncern. IMPRESSION: Negative MAMMOGRAM. BIRADS 1 BREAST DENSITY: b. There are scattered areas of fibroglandular density. BIRAD: ASSESSMENT: 1 NEGATIVE RECOMMENDATION: ROUTINE SCREENING Please continue yearly bilateral screening mammography/tomosynthesis in June 2020 COMMENT: The patient has been notified of the results by letter per [place] requirements. Additional no tification policies are in place for contacting patient with suspicious or incomplete findings. Quality ID #225: The [employer] [place] recommends an annual screening mammogram for women aged 40 years or over. This facility utilizes a reminder system to ensure that all patients receive reminder letters, and/or direct phone calls for appointments. This includes reminders for routine scr eening mammograms, diagnostic mammograms, or other Breast Imaging Interventions when appropriate. Th is patient will be placed in the appropriate reminder system. TECHNICAL DOCUMENTATION: FINDING NUMBER: (1) ASSESSMENT: (1) JOB ID: [id number] [email or web address]- All Rights Reserved Reading location - IP/workstation name: [email or web address]
== END ==
LOC: WI 13:08
PROVIDERS: ATTEND Physician Assistant
DX: Z12.31 Encounter for screening mammogram for malignant neoplasm of breast (principal)
CPT/HCPCS: 77067

== ENCOUNTER → 2019-08-02 | Outpatient (CLI) | payer BC ==
--- NOTE | 2019-08-04 16:33 | NEURO WORKBENCH EEG REPORT ---
EEG Report Patient: Estrella Argueta ID: [id number] Referring Doctor: Maxwell Burns MD DOS: 07/02/2019 Medications: Haloperidol, trihexyphenidyl, hydroxyzine, latuda, meloxicam, buproprion, lorazepam, lithium, temazepam, tramadol, pantoprazole History This is a 48 year old right handed woman with a history of schizoaffective disorder, hypertension, diabetes, asthma. This EEG was requested for tremor and abnormal gait. EEG Interpretation This EEG was recorded in the awake, drowsy, and sleep states. The awake EEG is characterized by a fairly well-organized background with a moderately well- developed posterior dominant rhythm of 8.5Hz. Drowsiness was characterized by slowing of the background rhythms. Vertex waves and sleep spindles were seen in the midline head regions. Photic stimulation resulted in a minimal driving response. Hyperventilation resulted in no significant changes. There were no epileptiform abnormalities. The EKG showed a regular rhythm in the high 50s to low 60s. EEG Classification EKG mild bradycardia EEG Impression This EEG is within normal limits with a background at the lower limits of normal for age. The EKG showed periods of a mild bradycardia that may require further investigation. INTERPRETING NEUROLOGIST: Fide Mcleod MD, FRCPC Board Certified in Neurology, with special qualification in Child Neurology, and in Clinical Neurophysiology [facility]
== END ==
LOC: NEURO 12:21
PROVIDERS: ATTEND Pediatrics
DX: R25.1 Tremor, unspecified (principal); R26.89 Other abnormalities of gait and mobility; F51.09 Other insomnia not due to a substance or known physiological condition; R41.0 Disorientation, unspecified; R41.3 Other amnesia; F25.0 Schizoaffective disorder, bipolar type
CPT/HCPCS: 95819

== ENCOUNTER → 2019-08-04 | Outpatient (CLI) | payer BC ==
--- NOTE | 2019-08-04 10:10 | RADIOLOGY REPORT (SQ) ---
EXAM DESCRIPTION: UGI W/ DOUBLE CONTRAST COMPLETED DATE/TIME: 08/04/2019 9:38 am REASON FOR STUDY: K21.9 GASTRO-ESOPHAGEAL REFLUX DISEASE WITHOUT ESOPHAGITIS K21.9 GASTRO-ESOPHAGEA L REFLUX DISEASE WITHOUT ESOPHAGITIS Z98.84 BARIATRIC SURGERY STATUS COMPARISON: None. TECHNIQUE: Under fluoroscopic guidance, patient ingested effervescent granules followed by thick and thin barium. Fluoroscopic spot images and routine radiographic images acquired and stored on PACS. 12 MM BARIUM TABLET GIVEN: Yes. No significant delay in passage. LIMITATIONS: None. FLUOROSCOPY TIME: FLUORO TIME: 1.8 minutes of fluoroscopy was used. 28 images saved to PACS. FINDINGS: NEUROMUSCULAR COORDINATION OF SWALLOW: Normal. No aspiration. ESOPHAGEAL MOTILITY: Slow primary peristalsis with tertiary contractions. No esophageal spasm. ESOPHAGEAL MUCOSA: Normal mucosa without masses or ulceration. GASTRO-ESOPHAGEAL JUNCTION: Small hiatal hernia with moderate free-flowing gastroesophageal reflux. 12 mm barium tablet passed through the GE junction without delay. STOMACH: Postoperative changes from gastric sleeve bariatric surgery. Suture line in is intact. No evidence of perforation or extravasation of contrast. Mild mucosal thickening along the suture line without ulceration. GASTRIC OUTLET: No delay in emptying. Normal pylorus. DUODENAL BULB: Normal distention. No spasm or ulceration. DUODENUM: Mucosa normal. No extrinsic masses or malrotation. PROXIMAL SMALL BOWEL: Mucosa normal. No extrinsic masses or malrotation. NON-GI TRACT STRUCTURES: No significant finding. OTHER: No other significant finding. IMPRESSION: 1. ESOPHAGEAL DYSMOTILITY. 2. SMALL SLIDING HIATAL HERNIA WITH MODERATE FREE-FLOWING GASTROESOPHAGEAL REFLUX. 3. POSTOPERATIVE CHANGES FROM GASTRIC SLEEVE WITHOUT EVIDENCE OF COMPLICATION. MILD MUCOSAL THICKEN ING ALONG THE SUTURE LINE WITHOUT ULCERATION. COMMENT: Quality ID 145: Final reports for procedures using fluoroscopy that document radiation exp osure indices, or exposure time and number of fluorographic images (if radiation exposure indices are not available) TECHNICAL DOCUMENTATION: JOB ID: [id number] [employer]- All Rights Reserved Reading location - IP/workstation name: [email or web address]
== END ==
LOC: RAD 08:28
PROVIDERS: ATTEND Surgery
DX: K21.9 Gastro-esophageal reflux disease without esophagitis (principal); K44.9 Diaphragmatic hernia without obstruction or gangrene; Z98.84 Bariatric surgery status
CPT/HCPCS: 74246

== ENCOUNTER → 2019-08-16 | Outpatient (CLI) | payer BC ==
--- NOTE | 2019-08-16 22:39 | EKG REPORT ---
SEVERITY:- NORMAL ECG - SINUS RHYTHM : Confirmed by: Candace Lorenz 16-Aug-2019 22:38:07
== END ==
LOC: OD 08:34
PROVIDERS: ATTEND Pediatrics
DX: R25.1 Tremor, unspecified (principal); R26.89 Other abnormalities of gait and mobility; F51.09 Other insomnia not due to a substance or known physiological condition; R41.0 Disorientation, unspecified; R94.31 Abnormal electrocardiogram [ECG] [EKG]; R41.3 Other amnesia; F25.0 Schizoaffective disorder, bipolar type
CPT/HCPCS: 93005; 93010

== ENCOUNTER 2019-09-12 10:45 | Emergency (ER) | payer BC | END 2019-09-12 19:15 | disposition left against medical advice (07) | LOC: ER 10:45 | DX: Z53.21 Procedure and treatment not carried out due to patient leaving prior to being seen by health care provider (principal); R19.7 Diarrhea, unspecified; R05 Cough; J02.9 Acute pharyngitis, unspecified ==

== ENCOUNTER → 2019-12-20 | Outpatient (CLI) | payer BC ==
--- NOTE | 2019-12-20 11:16 | RADIOLOGY REPORT (SQ) ---
EXAM DESCRIPTION: UGI W/ DOUBLE CONTRAST IMAGES COMPLETED DATE/TIME: 12/20/2019 9:21 am REASON FOR STUDY: GERD (K21.9) K22.9 DISEASE OF ESOPHAGUS, UNSPECIFIED COMPARISON: Upper GI 08/04/2019 TECHNIQUE: Under fluoroscopic guidance, patient ingested effervescent granules followed by thick and thin barium. Fluoroscopic spot images and routine radiographic images acquired and stored on PACS. 12 MM BARIUM TABLET GIVEN: Yes. No significant delay in passage. LIMITATIONS: None. FLUOROSCOPY TIME: FLUORO TIME: 1 minutes 9 seconds of fluoroscopy was used. 24 images saved to PACS. FINDINGS: NEUROMUSCULAR COORDINATION OF SWALLOW: Normal. No aspiration. ESOPHAGEAL MOTILITY: Mild esophageal dysmotility with tertiary contractions seen. ESOPHAGEAL MUCOSA: Normal mucosa without masses or ulceration. GASTRO-ESOPHAGEAL JUNCTION: Small sliding hiatal hernia with moderate free-flowing gastroesophageal r eflux. 12 mm barium tablet passed through the GE junction without delay. STOMACH: Postoperative changes from gastric sleeve show no evidence of complication. Mucosal folds a re normal. No ulcerations or masses seen. Suture line appears intact without evidence of extravasat ion or leak. The mucosal thickening is along the suture line seen on the previous upper GI from 2019 has resolved. GASTRIC OUTLET: No delay in emptying. Normal pylorus. DUODENAL BULB: Normal distention. No spasm or ulceration. DUODENUM: Mucosa normal. No extrinsic masses or malrotation. PROXIMAL SMALL BOWEL: Mucosa normal. No extrinsic masses or malrotation. NON-GI TRACT STRUCTURES: No significant finding. OTHER: No other significant finding. IMPRESSION: 1. ESOPHAGEAL DYSMOTILITY. 2. SMALL HIATAL HERNIA WITH MODERATE FREE-FLOWING GASTROESOPHAGEAL REFLUX. 3. STATUS POST GASTRIC SLEEVE WITHOUT EVIDENCE OF COMPLICATION. COMMENT: Quality ID 145: Final reports for procedures using fluoroscopy that document radiation exp osure indices, or exposure time and number of fluorographic images (if radiation exposure indices are not available) TECHNICAL DOCUMENTATION: JOB ID: [id number] 2010 [employer]- All Rights Reserved Reading location - IP/workstation name: [email or web address]
== END ==
LOC: RAD 07:52
PROVIDERS: ATTEND Surgery
DX: K21.9 Gastro-esophageal reflux disease without esophagitis (principal); K44.9 Diaphragmatic hernia without obstruction or gangrene
CPT/HCPCS: 74246

== ENCOUNTER → 2019-12-26 | Outpatient (CLI) | payer BC ==
--- NOTE | 2019-12-26 15:50 | RADIOLOGY REPORT (SQ) ---
EXAM DESCRIPTION: MRI RT LOWER JOINT WITHOUT IMAGES COMPLETED DATE/TIME: 12/26/2019 2:51 pm REASON FOR STUDY: M25.561 PAIN IN RIGHT KNEE M25.561 PAIN IN RIGHT KNEE COMPARISON: None. TECHNIQUE: Rightknee images acquired and stored on PACS. Multiplanar images include fat sensitive s equences as T1, water sensitive sequences as FST2 or STIR, cartilage sensitive sequences as FSPD, and gradient echo sequences. LIMITATIONS: Motion. Body habitus. FINDINGS: JOINT AND BURSAE: Small effusion. BONE CORTEX AND MARROW: No alteration of signal to suggest marrow replacement. No worrisome bone lesi ons. No occult fracture. ACL: Intact. No degeneration or ganglion cyst. PCL: Intact. MCL: Proximal thickening. No periligamentous edema or fluid. LCL: Intact. No periligamentous edema or fluid. MEDIAL MENISCUS: Increased signal posterior horn. No definite extension to articular surface. No pa rameniscal cyst. LATERAL MENISCUS: Increased signal anterior horn. No extension to the articular surface. No paramen iscal cyst. MEDIAL COMPARTMENT: Small osteophytes. No subchondral edema. LATERAL COMPARTMENT: Cartilage preserved. No bone bruises or reactive marrow edema. No osteophytes. PATELLA: Small osteophytes. No subchondral edema. EXTENSOR MECHANISM: Intact. Increased signal distal patellar tendon. SOFT TISSUES: Small Landaverde's cyst. OTHER: No other significant finding. IMPRESSION: 1. Intrasubstance degeneration posterior horn medial meniscus. No definite tear identified. 2. 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 TECHNICAL DOCUMENTATION: JOB ID: [id number] 2010 [employer]- All Rights Reserved Reading location - IP/workstation name: [email or web address]
== END ==
LOC: RAD 14:07
PROVIDERS: ATTEND Orthopaedic Surgery Sports Medicine
DX: M25.561 Pain in right knee (principal); M17.11 Unilateral primary osteoarthritis, right knee; M22.41 Chondromalacia patellae, right knee

== ENCOUNTER → 2020-01-03 | Outpatient (CLI) | payer BC ==
--- NOTE | 2020-01-03 13:52 | RADIOLOGY REPORT (SQ) ---
EXAM DESCRIPTION: MRI HEAD COMBO IMAGES COMPLETED DATE/TIME: 01/03/2020 8:05 am REASON FOR STUDY: LEFT SIDED WEAKNESS/FACIAL WEAKNESS R53.1 WEAKNESS R29.810 FACIAL WEAKNESS COMPARISON: CT brain 07/07/2019 TECHNIQUE: Multiplanar imaging includes noncontrasted T1, T2, FLAIR, diffusion with ADC map and post gadolinium contrast T1 sequences. Images stored on PACS. CONTRAST TYPE AND DOSE: 20 mL Prohance. RENAL FUNCTION: Not indicated. ACR Type II contrast agent associated with few, if any, unconfounded cases of NSF LIMITATIONS: Mild motion artifact on some pulse sequences FINDINGS: ANATOMY: No anomalies. Normal vascular flow voids. Pituitary fossa normal. CSF SPACES: Normal in size and contour. No hemorrhage. CEREBRUM: Sulci and gyri normal in size and contour. Normal white matter signal on FLAIR imaging. No evidence of hemorrhage, mass, or extraaxial fluid collection. No abnormal enhancement post contrast. POSTERIOR FOSSA: No signal alteration. No hemorrhage. No edema, masses, or mass effect. Internal darcy tory canals, cerebellopontine angles, mastoids normal. No enhancing lesions. No abnormal enhancement post contrast. DIFFUSION IMAGING: Negative for acute or subacute infarction. ORBITS: No masses. Globes normal. PARANASAL SINUSES: Minimal fluid in the left frontal sinus, anterior ethmoid air cells. Mucous membr ane thickening left maxillary sinus. OTHER: No other significant finding. IMPRESSION: LEFT FRONTAL, ETHMOID AND MAXILLARY SINUS. OTHERWISE, UNREMARKABLE MRI OF THE BRAIN WITHOUT AND WITH INTRAVENOUS GADOLINIUM CONTRAST. EVIDENCE OF ACUTE STROKE: NO. TECHNICAL DOCUMENTATION: JOB ID: [id number] 2010 [employer]- All Rights Reserved Reading location - IP/workstation name: [id number]
== END ==
LOC: RAD 07:09
PROVIDERS: ATTEND Physician Assistant
DX: R29.810 Facial weakness (principal); R53.1 Weakness
CPT/HCPCS: 82565; 70553; A9576

== ENCOUNTER 2020-03-05 23:13 | Emergency (ER) | payer BC ==
[2020-03-05 23:32] VITALS: BP 106/63
--- NOTE | 2020-03-06 01:31 | RADIOLOGY REPORT (SQ) ---
EXAM DESCRIPTION: XR FOOT 3 OR MORE VIEWS COMPLETED DATE/TME: 03/06/2020 00:00 CLINICAL HISTORY: 49 years, Female, pain COMPARISON: None. NUMBER OF VIEWS: Three TECHNIQUE: Three views of the right foot LIMITATIONS: None. FINDINGS: No acute fracture or dislocation. No soft tissue swelling. No radiopaque foreign body. Small plantar and dorsal calcaneal spurs. IMPRESSION: No acute fracture or dislocation. copyright 2010 [employer]- All Rights Reserved
== END 2020-03-06 02:38 | disposition left against medical advice (07) ==
LOC: ER 23:13
DX: Z53.21 Procedure and treatment not carried out due to patient leaving prior to being seen by health care provider (principal)

== ENCOUNTER → 2020-03-14 | Outpatient (CLI) | payer BC ==
--- NOTE | 2020-03-14 13:14 | RADIOLOGY REPORT (SQ) ---
EXAM DESCRIPTION: FOOT RIGHT COMPLETE IMAGES COMPLETED DATE/TIME: 03/14/2020 9:35 am REASON FOR STUDY: PAIN IN RIGHT FOOT M79.671 PAIN IN RIGHT FOOT COMPARISON: None. NUMBER OF VIEWS: Three views. TECHNIQUE: AP, lateral and oblique radiographic images acquired of the right foot. LIMITATIONS: None. FINDINGS: MINERALIZATION: Normal. BONES: No fracture or dislocation. Small plantar and posterior calcaneal spurs. JOINTS: No effusions. SOFT TISSUES: No soft tissue swelling. No foreign body. OTHER: No other significant finding. IMPRESSION: Calcaneal spurs. No acute finding. TECHNICAL DOCUMENTATION: JOB ID: [id number] 2010 [facility]- All Rights Reserved Reading location - IP/workstation name: [email or web address]
== END ==
LOC: OD 09:20
PROVIDERS: ATTEND Family Medicine
DX: M77.31 Calcaneal spur, right foot (principal); M79.671 Pain in right foot

== ENCOUNTER 2020-03-16 12:33 | Emergency (ER) | payer BC ==
--- NOTE | 2020-03-16 12:59 | ER Document Report ---
ED Neuro Symptoms/Deficit - General Chief Complaint: Slurred Speech Stated Complaint: SLURRED SPEECH Time Seen by Provider: 03/16/20 12:39 Primary Care Provider: JESSICA KELLY MD [Primary Care Provider] - Follow up as needed Notes: HPI: 49-year-old female that presents with EMS secondary to the patient stating to EMS at around 2 AM she had a mild frontal headache with some slurred speech. She states it resolved. She states she got up at 4 AM again with some slurred speech that lasted 15 minutes. This reoccurred again at 11:30 AM. Patient states the headache is mostly resolved. No head trauma. No double or blurry vision. No neck pain, chest pain, palpitations, abdominal pain, and the patient denies any and all weakness or numbness to the arms or the legs. Patient was called a code stroke and I met the patient in the parking lot prior to CT scan. My initial NIH score as recorded. Patient is looking well with a Van score negative. ROS: See HPI All other review of systems reviewed and otherwise negative Reviewed vital signs and nursing note as charted by RN. PHYSICAL EXAM: CONSTITUTIONAL: Alert and oriented and responds appropriately to questions. Well-appearing; well-nourished HEAD: Normocephalic; atraumatic EYES: PERRL; full extraocular range of motion ENT: Normal nose; no rhinorrhea; moist mucous membranes; pharynx without lesions noted NECK: Supple without meningismus; non-tender; no carotid bruit; no cervical lymphadenopathy, no masses CARD: Regular rate and rhythm; no murmurs; symmetric distal pulses RESP: Normal chest excursion without splinting or tachypnea; breath sounds clear and equal bilaterally; no wheezes, no rhonchi, no rales ABD/GI: Normal bowel sounds; non-distended; soft, non-tender; no palpable organomegaly or masses BACK: The back appears normal and is non-tender to palpation EXT: Normal ROM in all joints; non-tender to palpation; no edema SKIN: No acute lesions noted NEURO: CN 2-12 intact with only some very slight slurred speech. No obvious facial droop appreciated; 5/5 bilateral upper and lower extremity strength with sensation intact to light touch. Van score is negative PSYCH: The patient's mood and manner are appropriate. Grooming and personal hygiene are appropriate. TRAVEL OUTSIDE OF THE [place] IN LAST 30 DAYS: No - Related Data Allergies/Adverse Reactions: cephalexin monohydrate [From Keflex] Allergy (Intermediate, Verified 07/07/19 17:07) DIFFICULTY BREATHING,SUNBURN TYPE RASH lamotrigine [From Lamictal] Allergy (Verified 07/07/19 17:07) UNKNOWN Penicillins Allergy (Verified 07/07/19 17:07) RASH Past Medical History - Social History Smoking Status: Unknown if Ever Smoked Family History: Reviewed & Not Pertinent, DM - Past Medical History Cardiac Medical History: Reports: Hx Hypercholesterolemia, Hx Hypertension - Tx Denies: Hx Coronary Artery Disease, Hx Heart Attack Pulmonary Medical History: Reports: Hx Asthma - Neb & Inhaler, Hx Pneumonia Denies: Hx Bronchitis, Hx COPD, Hx Tuberculosis Neurological Medical History: Denies: Hx Cerebrovascular Accident, Hx Seizures Endocrine Medical History: Reports: Hx Diabetes Mellitus Type 2 Renal/ Medical History: Denies: Hx Peritoneal Dialysis Musculoskeletal Medical History: Denies Hx Arthritis Psychiatric Medical History: Reports: Hx Bipolar Disorder, Hx Schizophrenia Past Surgical History: Reports: Hx Cholecystectomy, Hx Gynecologic Surgery - right ovary, Hx Tonsillectomy, Hx Tubal Ligation. Denies: Hx Hysterectomy - Immunizations Hx Diphtheria, Pertussis, Tetanus Vaccination: No Hx Pneumococcal Vaccination: 04/29/13 Physical Exam - Vital signs Vitals: Pulse Resp BP Pulse Ox 70 18 154/87 H 98 03/16/20 12:34 03/16/20 12:34 03/16/20 12:34 03/16/20 12:34 Course - Re-evaluation Re-evalutation: Given the above history and physical examination, with the time of onset at 2 AM, Van score negative, with no real focal deficits other than very mild slurred speech with no facial droop, I do not believe that the patient is a TPA or extraction candidate at this time. We will obtain a CT of the head without contrast. I do not believe a CTA of the head and neck is appropriate or necessary at this moment. 03/16/20 12:[address] Labs [address] as recorded. CT as recorded. No change in exam. Patient is actually speaking even more clearly than previously. 03/16/20 13:01 EKG shows heart of 66, normal sinus rhythm, normal axis, no obvious ST elevation or depression. Inverted T wave in lead III. No change comparing the EKG today to the previous recorded. 03/16/20 13:34 I called radiology x2 days we still do not have a CT interpretation. No change in exam. Patient states that she has been having slurred speech intermittently around 1 time per week for 6 months. She supposedly saw the [facility] neurology referred to her by Dr. Cj Kelly her primary care physician yesterday. I am not able to see those notes I have called [facility] to help discuss the case with neurology. 03/16/20 13:37 Radiologist called me and states that they see nothing acute on CT scan. 03/16/20 14:16 I was able to speak directly to the stroke expert at [facility] hospital Dr. Villa. He has reviewed her chart. He states he is strongly suspicious this is psychogenic in nature. Patient was supposed to start 80 mg of Lipitor yesterday as well as a baby aspirin daily. She has yet to start the Lipitor. The patient states she has been having the symptoms weekly for 6 months. She states the only reason she came in today was because she did not have the prescription for Lipitor because she states her primary care physician "would not fill it". She also states she had a 2 out of 10 mild frontal headache which has resolved. Patient currently has no slurred speech, weakness or numbness. Patient already had an unremarkable MRI showing no acute findings after multiple episodes such as this today. Given the above history and physical, consultation with the expert neurologist, being seen by neurology yesterday, weekly symptoms such as this, primary care follow-up, I will take the recommendation of the neurologist and start the patient on Lipitor 80 mg daily as well as a baby aspirin. I will call and speak with the patient's primary care physician to help expedite follow-up. Patient is very comfortable with this plan. - Vital Signs Vital signs: Temp Pulse Resp BP Pulse Ox 98.8 F 70 18 154/87 H 98 03/16/20 12:56 03/16/20 12:34 03/16/20 12:34 03/16/20 12:34 03/16/20 12:40 - Laboratory Result Diagrams: 03/16/20 12:50 03/16/20 12:50 Laboratory results interpreted by me: 03/16/20 03/16/20 12:50 12:50 RDW 14.5 H Chloride 109 H Carbon Dioxide 19 L Creatine Kinase 148 H Discharge - Discharge Clinical Impression: Slurred speech Condition: Good Disposition: HOME, SELF-CARE Additional Instructions: Come back immediately for any weakness or numbness, nausea, vomiting, fevers, repeat slurred speech, worsening speech, or any other acute problems. Please m glynn sure that you follow-up with your primary care physician of the [facility] specialist as discussed and start taking the 80 mg Lipitor 81 mg baby aspirin daily as discussed and provided. Prescriptions: Atorvastatin Calcium [Lipitor 80 mg Tablet] 80 mg PO QHS #30 tablet Referrals: JESSICA KELLY MD [Primary Care Provider] - Follow up as needed
[2020-03-16 13:07] LABS: ABSOLUTE BASOPHILS # (AUTO) 0.1 10^3/uL (0.0-0.2); ABSOLUTE EOSINOPHILS # (AUTO) 0.2 10^3/uL (0.0-0.6); ABSOLUTE LYMPHOCYTES (AUTO) 2.6 10^3/uL (0.5-4.7); ABSOLUTE MONOCYTES (AUTO) 0.5 10^3/uL (0.1-1.4); ABSOLUTE NEUT (AUTO) 6.6 10^3/uL (1.7-8.2); BASOPHILS % (AUTO) 1.2 % (0-2); EOSINOPHILS % (AUTO) 2.4 % (0-6); HEMATOCRIT 37.5 % (36.0-47.0); HEMOGLOBIN 12.8 g/dL (12.0-15.5); LYMPHOCYTES % (AUTO) 25.5 % (13-45); MEAN CORPUSCULAR VOLUME 85 fl (80-97); MONOCYTES % (AUTO) 5.3 % (3-13); RED BLOOD COUNT 4.41 10^6/uL (3.72-5.28); RED CELL DISTRIBUTION WIDTH 14.5 % (11.5-14.0); SEGMENTED NEUTROPHILS % (AUTO) 65.6 % (42-78); TOTAL CELLS COUNTED % (AUTO) 100 %; WHITE BLOOD COUNT 10.1 10^3/uL (4.0-10.5)
--- NOTE | 2020-03-16 13:16 | RADIOLOGY REPORT (SQ) ---
EXAM DESCRIPTION: CHEST SINGLE VIEW IMAGES COMPLETED DATE/TIME: 03/16/2020 11:46 am REASON FOR STUDY: tr1; slurred speech COMPARISON: 07/07/2019 EXAM PARAMETERS: NUMBER OF VIEWS: One view. TECHNIQUE: Single frontal radiographic view of the chest acquired. RADIATION DOSE: NA LIMITATIONS: None. FINDINGS: LUNGS AND PLEURA: Persistent elevation of the right hemidiaphragm is unchanged. No opacit ies, masses or pneumothorax. No pleural effusion. MEDIASTINUM AND HILAR STRUCTURES: No masses. Contour normal. HEART AND VASCULAR STRUCTURES: Heart normal in size. Normal vasculature. BONES: No acute findings. HARDWARE: None in the chest. OTHER: No other significant finding. IMPRESSION: NO ACUTE RADIOGRAPHIC FINDING IN THE CHEST. TECHNICAL DOCUMENTATION: JOB ID: [id number] 2010 [employer]- All Rights Reserved Reading location - IP/workstation name: [email or web address]
[2020-03-16 13:22] LABS: ALKALINE PHOSPHATASE 77 U/L (38-126); ANION GAP 9 (5-19); ASPARTATE AMINO TRANSFERASE 36 U/L (14-36); BILIRUBIN,DIRECT 0.3 mg/dL (0.0-0.4); BILIRUBIN,TOTAL 0.5 mg/dL (0.2-1.3); BLOOD UREA NITROGEN 20 mg/dL (7-20); CALCIUM 9.4 mg/dL (8.4-10.2); CARBON DIOXIDE 19 mmol/L (22-30); CHLORIDE 109 mmol/L (98-107); CREATINE KINASE 148 U/L (30-135); GLUCOSE 108 mg/dL (75-110); POTASSIUM 4.4 mmol/L (3.6-5.0); TOTAL PROTEIN 6.7 g/dL (6.3-8.2)
[2020-03-16 13:31] LABS: PLATELET COUNT 232 10^3/uL (150-450)
[2020-03-16 13:37] LABS: CREATINE KINASE MB 2.19 ng/mL (<4.55)
[2020-03-16 13:39] LABS: INTERNATIONAL RATION (INR) 0.93; PARTIAL THROMBOPLASTIN TIME 27.1 SEC (23.5-35.8); PROTHROMBIN TIME 12.7 SEC (11.4-15.4)
[2020-03-16 13:39] LABS: TROPONIN I < 0.012 ng/mL
--- NOTE | 2020-03-16 13:43 | RADIOLOGY REPORT (SQ) ---
EXAM DESCRIPTION: CT HEAD WITHOUT IMAGES COMPLETED DATE/TIME: 03/16/2020 11:55 am REASON FOR STUDY: tr1; slurred speech COMPARISON: None. TECHNIQUE: Axial images acquired through the brain without intravenous contrast. Images reviewed wi th bone, brain and subdural windows. Additional sagittal and coronal reconstructions were generated. Images stored on PACS. All CT scanners at this facility use dose modulation, iterative reconstruction, and/or weight based d osing when appropriate to reduce radiation dose to as low as reasonably achievable (ALARA). [facility]: Dose Right [facility]: CareDose [facility]: Dose Right [facility]: Teradose 4D [facility]: Pipeliner CRM RADIATION DOSE: mGy. LIMITATIONS: None. FINDINGS: VENTRICLES: Normal size and contour. CEREBRUM: No masses. No hemorrhage. No midline shift. No evidence for acute infarction. Normal gra y-white matter differentiation. No areas of hypodense attenuation. CEREBELLUM: No masses. No hemorrhage. No alteration of density. No evidence for acute infarction. EXTRAAXIAL SPACES: No fluid collections. No masses. ORBITS AND GLOBE: No intra- or extraconal masses. Normal contour of globe without masses. CALVARIUM: No fracture. PARANASAL SINUSES: There is diffuse mucosal thickening in the left maxillary sinus. No air-fluid lev els. SOFT TISSUES: No mass or hematoma. OTHER: No other significant finding. IMPRESSION: NO ACUTE INTRACRANIAL IMAGING FINDINGS. CHRONIC LEFT MAXILLARY SINUSITIS. EVIDENCE OF ACUTE STROKE: NO. COMMENT: Findings were communicated with Dr. Moreno on 03/16/2020 at 1235 hours. Quality ID # [id number]: Final reports with documentation of one or more dose reduction techniques (e.g., Au tomated exposure control, adjustment of the mA and/or kV according to patient size, use of iterative reconstruction technique) TECHNICAL DOCUMENTATION: JOB ID: [id number] 2010 [employer]- All Rights Reserved Reading location - IP/workstation name: [email or web address]
[2020-03-16] MEDS ORDERED: ATORVASTATIN CALCIUM 80 MG TABLET PO ONE (14:16)
[2020-03-16] MEDS ORDERED: ASPIRIN 325 MG TABLET PO ONE (14:16)
[2020-03-16 15:05] VITALS: BP 154/86
--- NOTE | 2020-03-16 17:18 | EKG REPORT ---
SEVERITY:- BORDERLINE ECG - SINUS RHYTHM BORDERLINE T ABNORMALITIES, DIFFUSE LEADS : Confirmed by: Candace Lorenz 16-Mar-2020 17:17:17
== END 2020-03-16 15:00 | disposition home or self-care (01) ==
LOC: ER 12:33
DX: R47.81 Slurred speech (principal); J32.0 Chronic maxillary sinusitis; I10 Essential (primary) hypertension; J45.909 Unspecified asthma, uncomplicated; E11.9 Type 2 diabetes mellitus without complications; Z88.1 Allergy status to other antibiotic agents; Z88.8 Allergy status to other drugs, medicaments and biological substances; Z88.0 Allergy status to penicillin
CPT/HCPCS: 36415; 70450; 71045; 80053; 80178; 82550; 82553; 82962; 84484; 85025; 85610; 85730; 93005; 93010; 99285

== ENCOUNTER 2020-03-22 13:37 | Emergency (ER) | payer BC ==
--- NOTE | 2020-03-22 14:39 | ER Document Report ---
ED Medical Screen (RME) - General Chief Complaint: Dizziness Stated Complaint: DIZZY Time Seen by Provider: 03/22/20 14:32 Primary Care Provider: JESSICA KELLY MD [Primary Care Provider] - Follow up as needed Mode of Arrival: Medic Information source: Patient Notes: 49-year-old female patient presents emergency department chief complaint of fluctuating blood pressures and generally not feeling well. She reports that this is been ongoing for the last few weeks. She states she has nausea but denies any fever, vomiting or diarrhea. Patient is not very specific about her symptoms. She has told me and the triage nurse to different things. We will initiate a basic work-up on her today. Patient is alert, oriented, answering all questions appropriately, no acute distress noted. I have greeted and performed a rapid initial assessment of this patient. A comprehensive ED assessment and evaluation of the patient, analysis of test results and completion of the medical decision making process will be conducted by additional ED providers. I have specifically instructed the patient or family members with the patient to immediately return to any nursing staff should anything change in the patient's condition or with their chief complaint. TRAVEL OUTSIDE OF THE [place] IN LAST 30 DAYS: No - Related Data Allergies/Adverse Reactions: cephalexin monohydrate [From Keflex] Allergy (Intermediate, Verified 07/07/19 17:07) DIFFICULTY BREATHING,SUNBURN TYPE RASH lamotrigine [From Lamictal] Allergy (Verified 07/07/19 17:07) UNKNOWN Penicillins Allergy (Verified 07/07/19 17:07) RASH Past Medical History - Past Medical History Cardiac Medical History: Reports: Hx Hypercholesterolemia, Hx Hypertension - Tx Denies: Hx Coronary Artery Disease, Hx Heart Attack Pulmonary Medical History: Reports: Hx Asthma - Neb & Inhaler, Hx Pneumonia Denies: Hx Bronchitis, Hx COPD, Hx Tuberculosis Neurological Medical History: Denies: Hx Cerebrovascular Accident, Hx Seizures Endocrine Medical History: Reports: Hx Diabetes Mellitus Type 2 Renal/ Medical History: Denies: Hx Peritoneal Dialysis Musculoskeltal Medical History: Denies Hx Arthritis Psychiatric Medical History: Reports: Hx Bipolar Disorder, Hx Schizophrenia Past Surgical History: Reports: Hx Cholecystectomy, Hx Gynecologic Surgery - right ovary, Hx Tonsillectomy, Hx Tubal Ligation. Denies: Hx Hysterectomy - Immunizations Hx Diphtheria, Pertussis, Tetanus Vaccination: No Physical Exam - Vital signs Vitals: Temp Pulse Resp BP Pulse Ox 98.3 F 73 16 161/71 H 97 03/22/20 13:49 03/22/20 13:49 03/22/20 13:49 03/22/20 13:49 03/22/20 13:49 Course - Vital Signs Vital signs: Temp Pulse Resp BP Pulse Ox 98.3 F 73 16 161/71 H 97 03/22/20 13:49 03/22/20 13:49 03/22/20 13:49 03/22/20 13:49 03/22/20 13:49 Doctor's Discharge - Discharge Referrals: JESSICA KELLY MD [Primary Care Provider] - Follow up as needed
[2020-03-22 15:53] LABS: ABSOLUTE BASOPHILS # (AUTO) 0.1 10^3/uL (0.0-0.2); ABSOLUTE EOSINOPHILS # (AUTO) 0.4 10^3/uL (0.0-0.6); ABSOLUTE MONOCYTES (AUTO) 0.9 10^3/uL (0.1-1.4); ABSOLUTE NEUT (AUTO) 11.5 10^3/uL (1.7-8.2); BASOPHILS % (AUTO) 0.6 % (0-2); EOSINOPHILS % (AUTO) 2.2 % (0-6); HEMATOCRIT 44.4 % (36.0-47.0); HEMOGLOBIN 14.5 g/dL (12.0-15.5); LYMPHOCYTES % (AUTO) 23.7 % (13-45); MEAN CORPUSCULAR HEMOGLOBIN 28.3 pg (27.0-33.4); MEAN CORPUSCULAR HGB CONC 32.7 g/dL (32.0-36.0); MEAN CORPUSCULAR VOLUME 87 fl (80-97); MONOCYTES % (AUTO) 5.6 % (3-13); PLATELET COUNT 386 10^3/uL (150-450); RED BLOOD COUNT 5.13 10^6/uL (3.72-5.28); RED CELL DISTRIBUTION WIDTH 14.4 % (11.5-14.0); SEGMENTED NEUTROPHILS % (AUTO) 67.9 % (42-78); TOTAL CELLS COUNTED % (AUTO) 100 %
[2020-03-22 16:00] LABS: APPEARANCE,URINE SLIGHTLY-CLOUDY; BILIRUBIN,URINE NEGATIVE (NEGATIVE); COLOR,URINE YELLOW; GLUCOSE, URINE NEGATIVE (NEGATIVE); KETONES,URINE 20 mg/dL (NEGATIVE); LEUKOCYTE ESTERASE,URINE NEGATIVE (NEGATIVE); NITRITE,URINE NEGATIVE (NEGATIVE); PROTEIN,URINE 30 mg/dL (NEGATIVE); URINE SPECIFIC GRAVITY 1.014; UROBILINOGEN,URINE NEGATIVE mg/dL (<2.0)
[2020-03-22 16:15] LABS: ALBUMIN 4.9 g/dL (3.5-5.0); ALKALINE PHOSPHATASE 91 U/L (38-126); ANION GAP 15 (5-19); ASPARTATE AMINO TRANSFERASE 41 U/L (14-36); BILIRUBIN,DIRECT 0.4 mg/dL (0.0-0.4); BILIRUBIN,TOTAL 0.8 mg/dL (0.2-1.3); BLOOD UREA NITROGEN 18 mg/dL (7-20); CALCIUM 10.6 mg/dL (8.4-10.2); CARBON DIOXIDE 19 mmol/L (22-30); CHLORIDE 107 mmol/L (98-107); GLUCOSE 109 mg/dL (75-110); POTASSIUM 4.3 mmol/L (3.6-5.0)
[2020-03-22 18:48] VITALS: BP 156/108
--- NOTE | 2020-03-22 21:35 | EKG REPORT ---
SEVERITY:- NORMAL ECG - SINUS RHYTHM : Confirmed by: Tita Baker MD 22-Mar-2020 21:34:14
== END 2020-03-22 19:35 | disposition left against medical advice (07) ==
LOC: ER 13:37
DX: I99.8 Other disorder of circulatory system (principal); R11.0 Nausea; I10 Essential (primary) hypertension; E11.9 Type 2 diabetes mellitus without complications; J45.909 Unspecified asthma, uncomplicated; Z88.1 Allergy status to other antibiotic agents; Z88.8 Allergy status to other drugs, medicaments and biological substances; Z88.0 Allergy status to penicillin; Z53.20 Procedure and treatment not carried out because of patient's decision for unspecified reasons
CPT/HCPCS: 36415; 80053; 81001; 84484; 85025; 93005; 93010; 99281

== ENCOUNTER 2020-04-01 13:33 | Emergency (ER) | payer BC ==
[2020-04-01] MEDS ORDERED: RINGERS SOLUTION,LACTATED 1,000 ML IV ONE (15:00)
--- NOTE | 2020-04-01 15:01 | ER Document Report ---
ED Medical Screen (RME) - General Chief Complaint: High Blood Sugar Stated Complaint: HIGH BLOOD SUGAR Time Seen by Provider: 04/01/20 14:52 Primary Care Provider: JESSICA KELLY MD [Primary Care Provider] - Follow up as needed Mode of Arrival: Ambulatory Information source: Patient Notes: HPI; 49-year-old female past medical history significant for diabetes and hyp ertension currently diet-controlled diabetic presents to the emergency room complaining of elevated blood sugars. States she has lost weight and has been diet-controlled but last night noticed her blood sugars were 204 this morning around noon it was 300 complains of nausea with vomiting. Patient noted to be drinking a fruity drink from [employer] in triage. Patient states she called her primary care physician was told to come to the emergency room. PE: Alert and oriented x3. Mild distress noted. Lungs: Clear to auscultation without rales, rhonchi, wheezes. Heart: Regular rate rhythm, no murmurs, no rubs, no gallops. I have greeted and performed a rapid initial assessment of this patient. A comprehensive ED assessment and evaluation of the patient, analysis of test results and completion of the medical decision making process will be conducted by additional ED providers. I have specifically instructed the patient or family members with the patient to immediately return to any nursing staff should anything change in the patient's condition or with their chief complaint. TRAVEL OUTSIDE OF THE [place] IN LAST 30 DAYS: No - Related Data Allergies/Adverse Reactions: cephalexin monohydrate [From Keflex] Allergy (Intermediate, Verified 07/07/19 17:07) DIFFICULTY BREATHING,SUNBURN TYPE RASH lamotrigine [From Lamictal] Allergy (Verified 07/07/19 17:07) UNKNOWN Penicillins Allergy (Verified 07/07/19 17:07) RASH Past Medical History - Past Medical History Cardiac Medical History: Reports: Hx Hypercholesterolemia, Hx Hypertension - Tx Denies: Hx Coronary Artery Disease, Hx Heart Attack Pulmonary Medical History: Reports: Hx Asthma - Neb & Inhaler, Hx Pneumonia Denies: Hx Bronchitis, Hx COPD, Hx Tuberculosis Neurological Medical History: Denies: Hx Cerebrovascular Accident, Hx Seizures Endocrine Medical History: Reports: Hx Diabetes Mellitus Type 2 Renal/ Medical History: Denies: Hx Peritoneal Dialysis Musculoskeltal Medical History: Denies Hx Arthritis Psychiatric Medical History: Reports: Hx Bipolar Disorder, Hx Schizophrenia Past Surgical History: Reports: Hx Cholecystectomy, Hx Gynecologic Surgery - right ovary, Hx Tonsillectomy, Hx Tubal Ligation. Denies: Hx Hysterectomy - Immunizations Hx Diphtheria, Pertussis, Tetanus Vaccination: No Physical Exam - Vital signs Vitals: Temp Pulse Resp BP Pulse Ox 98.3 F 71 20 100/54 L 100 04/01/20 13:51 04/01/20 13:51 04/01/20 13:51 04/01/20 13:51 04/01/20 13:51 Course - Vital Signs Vital signs: Temp Pulse Resp BP Pulse Ox 98.3 F 71 20 100/54 L 100 04/01/20 13:51 04/01/20 13:51 04/01/20 13:51 04/01/20 13:51 04/01/20 13:51 Doctor's Discharge - Discharge Referrals: JESSICA KELLY MD [Primary Care Provider] - Follow up as needed
[2020-04-01 15:40] LABS: ABSOLUTE EOSINOPHILS # (AUTO) 0.3 10^3/uL (0.0-0.6); ABSOLUTE MONOCYTES (AUTO) 0.9 10^3/uL (0.1-1.4); ABSOLUTE NEUT (AUTO) 7.8 10^3/uL (1.7-8.2); BASOPHILS % (AUTO) 0.2 % (0-2); EOSINOPHILS % (AUTO) 2.8 % (0-6); HEMATOCRIT 38.2 % (36.0-47.0); HEMOGLOBIN 13.2 g/dL (12.0-15.5); LYMPHOCYTES % (AUTO) 24.8 % (13-45); MEAN CORPUSCULAR HEMOGLOBIN 29.6 pg (27.0-33.4); MEAN CORPUSCULAR HGB CONC 34.5 g/dL (32.0-36.0); MEAN CORPUSCULAR VOLUME 86 fl (80-97); MONOCYTES % (AUTO) 7.7 % (3-13); PLATELET COUNT 272 10^3/uL (150-450); RED BLOOD COUNT 4.44 10^6/uL (3.72-5.28); RED CELL DISTRIBUTION WIDTH 14.6 % (11.5-14.0); SEGMENTED NEUTROPHILS % (AUTO) 64.5 % (42-78); TOTAL CELLS COUNTED % (AUTO) 100 %
[2020-04-01 15:46] LABS: APPEARANCE,URINE CLEAR; BILIRUBIN,URINE NEGATIVE (NEGATIVE); COLOR,URINE STRAW; GLUCOSE, URINE NEGATIVE (NEGATIVE); KETONES,URINE NEGATIVE (NEGATIVE); LEUKOCYTE ESTERASE,URINE NEGATIVE (NEGATIVE); NITRITE,URINE NEGATIVE (NEGATIVE); PROTEIN,URINE NEGATIVE (NEGATIVE); URINE SPECIFIC GRAVITY 1.009; UROBILINOGEN,URINE NEGATIVE mg/dL (<2.0)
[2020-04-01 15:57] LABS: ALBUMIN 4.8 g/dL (3.5-5.0); ALKALINE PHOSPHATASE 81 U/L (38-126); ANION GAP 12 (5-19); ASPARTATE AMINO TRANSFERASE 27 U/L (14-36); BILIRUBIN,DIRECT 0.2 mg/dL (0.0-0.4); BILIRUBIN,TOTAL 0.4 mg/dL (0.2-1.3); BLOOD UREA NITROGEN 23 mg/dL (7-20); CALCIUM 10.3 mg/dL (8.4-10.2); CARBON DIOXIDE 18 mmol/L (22-30); CHLORIDE 106 mmol/L (98-107); GLUCOSE 100 mg/dL (75-110); POTASSIUM 4.3 mmol/L (3.6-5.0); TOTAL PROTEIN 7.6 g/dL (6.3-8.2)
[2020-04-01 18:20] VITALS: BP 113/80
[2020-04-01] MEDS ORDERED: ONDANSETRON HCL INJ/PF 4 MG/2 ML SDV IV ONE (18:48)
--- NOTE | 2020-04-01 19:26 | ER Document Report ---
Entered by ALLYSON BEDOYA SCRIBE 04/01/20 [id number] Acting as scribe for:LUCERO BROWNE MD ED General - General Chief Complaint: High Blood Sugar Stated Complaint: HIGH BLOOD SUGAR Time Seen by Provider: 04/01/20 14:52 Primary Care Provider: JESSICA KELLY MD [ACTIVE STAFF] - Follow up as needed Mode of Arrival: Ambulatory Information source: Patient Notes: This 49 year old female patient presents to the emergency department today with complaints of waking up this morning "feeling cold and clammy" so she checked her BGL and it was 300. She reports her BP was "all over the place" and she called her PCP and told them her symptoms and they told her to come here. She is nauseated, vomited once, she has had dizziness and lightheadedness all day as well. TRAVEL OUTSIDE OF THE [place] IN LAST 30 DAYS: No - Related Data Allergies/Adverse Reactions: cephalexin monohydrate [From Keflex] Allergy (Intermediate, Verified 07/07/19 17:07) DIFFICULTY BREATHING,SUNBURN TYPE RASH lamotrigine [From Lamictal] Allergy (Verified 07/07/19 17:07) UNKNOWN Penicillins Allergy (Verified 07/07/19 17:07) RASH Past Medical History - General Information source: Patient - Social History Smoking Status: Former Smoker Cigarette use (# per day): No Frequency of alcohol use: None Drug Abuse: None Lives with: Family Family History: Reviewed & Not Pertinent, DM Patient has homicidal ideation: No - Past Medical History Cardiac Medical History: Reports: Hx Hypercholesterolemia, Hx Hypertension - Lisinopril with HCTZ Pulmonary Medical History: Reports: Hx Asthma - Neb & Inhaler, Hx Pneumonia Endocrine Medical History: Reports: Hx Diabetes Mellitus Type 2 Psychiatric Medical History: Reports: Hx Bipolar Disorder, Hx Schizophrenia Past Surgical History: Reports: Hx Cholecystectomy, Hx Gynecologic Surgery - right ovary, Hx Tonsillectomy, Hx Tubal Ligation - Immunizations Hx Diphtheria, Pertussis, Tetanus Vaccination: No Hx Pneumococcal Vaccination: 04/29/13 Review of Systems - Review of Systems Constitutional: No symptoms reported EENT: No symptoms reported Cardiovascular: See HPI, Dizziness, Lightheaded Respiratory: No symptoms reported Gastrointestinal: See HPI, Nausea, Vomiting Genitourinary: No symptoms reported Female Genitourinary: No symptoms reported Musculoskeletal: No symptoms reported Skin: No symptoms reported Hematologic/Lymphatic: No symptoms reported Neurological/Psychological: No symptoms reported -: Yes All other systems reviewed and negative Physical Exam - Vital signs Vitals: Temp Pulse Resp BP Pulse Ox 98.3 F 71 20 100/54 L 100 04/01/20 13:51 04/01/20 13:51 04/01/20 13:51 04/01/20 13:51 04/01/20 13:51 - Notes Notes: Physical Exam: General: Alert, appears well. HEENT: Normocephalic. Atraumatic. PERRL. Extraocular movements intact. Oropharynx clear. Dry oral mucosa. Neck: Supple. Non-tender. Respiratory: No respiratory distress. Clear and equal breath sounds bilaterally. Cardiovascular: Regular rate and rhythm. Abdominal: Obese. Non-tender. No distension. Normal Bowel Sounds. Back: No gross abnormalities. Extremities: Moves all four extremities. Upper extremities: Normal inspection. Normal ROM. Lower extremities: Normal inspection. No edema. Normal ROM. Neurological: Normal cognition. AAOx4. Normal speech. Psychological: Normal affect. Normal Mood. Skin: Warm. Dry. Normal color. Course - Re-evaluation Re-evalutation: 04/01/20 21:19 At this time the patient is feeling much better. Her lithium level was in the upper therapeutic limit. Her blood sugar was 100 and A1c was 5.5. Her serum CO2 was 18, there were no other significant abnormalities noted. She showed me her glucometer readings and they were actually in the mid 100s and lower 200s, not in the 300s at least for today. Also the our meter was off by over 2 hours so she was not accurately describing when she checked her sugar in relation to when and what she had had to eat. I had her use her meter and check her sugar right now and it was 111 on her meter. I suspect she may have had a viral syndrome which is making her feel poorly and contributing to her nausea and vomiting and mild metabolic acidosis. - Vital Signs Vital signs: Temp Pulse Resp BP Pulse Ox 98.5 F 72 19 113/80 98 04/01/20 18:49 04/01/20 18:49 04/01/20 18:49 04/01/20 18:15 04/01/20 18:49 - Laboratory Result Diagrams: 04/01/20 15:17 04/01/20 15:17 Laboratory results interpreted by me: 04/01/20 04/01/20 15:17 15:17 WBC 12.0 H RDW 14.6 H Sodium 136.3 L Carbon Dioxide 18 L BUN 23 H Est GFR (MDRD) Non-Af 56 L Calcium 10.3 H Discharge - Discharge Clinical Impression: Viral syndrome Nausea and vomiting Qualifiers: Vomiting type: unspecified Vomiting Intractability: non-intractable Qualified Code(s): R11.2 - Nausea with vomiting, unspecified Condition: Stable Disposition: HOME, SELF-CARE Additional Instructions: Viral Syndrome The physician has diagnosed a viral infection. Viruses not only cause "colds," but can cause many different symptoms including generalized aching, fever, headache, cough, diarrhea, nausea, vomiting, and fatigue. The treatment, for the most part, is simply relief of symptoms. This means that antibiotics are usually not given. Rest, fluids, pain medications and, occasionally, medication for the specific symptoms that are most bothersome will be prescribed. Use good handwashing to avoid passing the virus to others. Shared toys should be cleaned with disinfectant. Clean the toilets, sinks, and counter surfaces in bathrooms. Launder clothing in hot water. Contact the physician if you develop any new or unusual symptoms such as severe headache, stiff neck, high fever, chest pain, productive cough, or shortness of breath. You should be rechecked if you don't see marked improvement within seven to 10 days. I think you most likely had a viral syndrome with the nausea and vomiting. Zofran did seem to help your nauseousness and make you feel better along with so me IV fluids. You will be discharged home with a dispense pack of Zofran to take for nauseousness if needed this evening. Drink plenty of fluids and get plenty of rest this evening. Follow-up with Dr. Kelly tomorrow if you continue to have nausea or any other concerning symptoms. RETURN TO THE EMERGENCY ROOM IF ANY NEW OR WORSENING SYMPTOMS. Referrals: JESSICA KELLY MD [ACTIVE STAFF] - Follow up as needed I personally performed the services described in the documentation, reviewed and edited the documentation which was dictated to the scribe in my presence, and it accurately records my words and actions.
[2020-04-01] MEDS ORDERED: ONDANSETRON ODT 4 MG TAB (6 TAB/ER DISP) PO PRN (21:21)
== END 2020-04-01 21:59 | disposition home or self-care (01) ==
LOC: ER 13:33
DX: B34.9 Viral infection, unspecified (principal); R11.2 Nausea with vomiting, unspecified; E11.9 Type 2 diabetes mellitus without complications; E87.2 Acidosis; R42 Dizziness and giddiness; I10 Essential (primary) hypertension; J45.909 Unspecified asthma, uncomplicated; Z87.891 Personal history of nicotine dependence; Z88.1 Allergy status to other antibiotic agents; Z88.8 Allergy status to other drugs, medicaments and biological substances; Z88.0 Allergy status to penicillin
CPT/HCPCS: 99284; 96361; 96374; 36415; 82962; 80178; 84703; 85025; 80053; 81001; 83036; J2405; J7120

== ENCOUNTER 2020-04-03 17:04 | Emergency (ER) | payer BC ==
[2020-04-03 17:12] VITALS: BP 105/77
--- NOTE | 2020-04-03 17:42 | ER Document Report ---
ED Medical Screen (RME) - General Chief Complaint: Abdominal Pain Stated Complaint: ABDOMINAL PAIN/SWELLING Primary Care Provider: TERESA AWAN PA-C [Primary Care Provider] - Follow up as needed Notes: Patient is a 49-year-old white female with a history of gastric bypass surgery and diabetes who presents the emergency department the chief complaint of constipation for the past couple weeks. States that she has not had any formal bowel movement. Reports feeling pressure at the rectal vault region. States that she got some abdominal discomfort and nausea. States that she has been eating and drinking normally without vomiting. Denies any history of other colonic surgery or obstructions. I have treated and performed a rapid initial assessment of this patient. A comprehensive ED assessment and evaluation of the patient, analysis of test results and completion of medical decision making process will be conducted by additional ED providers. PHYSICAL EXAMINATION: GENERAL: Well-appearing, well-nourished and in no acute distress. A&Ox4. Answers questions appropriately. TRAVEL OUTSIDE OF THE [place] IN LAST 30 DAYS: No - Related Data Allergies/Adverse Reactions: cephalexin monohydrate [From Keflex] Allergy (Intermediate, Verified 07/07/19 17:07) DIFFICULTY BREATHING,SUNBURN TYPE RASH lamotrigine [From Lamictal] Allergy (Verified 07/07/19 17:07) UNKNOWN Penicillins Allergy (Verified 07/07/19 17:07) RASH Past Medical History - Past Medical History Cardiac Medical History: Reports: Hx Hypercholesterolemia, Hx Hypertension - Lisinopril with HCTZ Denies: Hx Coronary Artery Disease, Hx Heart Attack Pulmonary Medical History: Reports: Hx Asthma - Neb & Inhaler, Hx Pneumonia Denies: Hx Bronchitis, Hx COPD, Hx Tuberculosis Neurological Medical History: Denies: Hx Cerebrovascular Accident, Hx Seizures Endocrine Medical History: Reports: Hx Diabetes Mellitus Type 2 Renal/ Medical History: Denies: Hx Peritoneal Dialysis Musculoskeltal Medical History: Denies Hx Arthritis Psychiatric Medical History: Reports: Hx Bipolar Disorder, Hx Schizophrenia - schizoaffect disorder Past Surgical History: Reports: Hx Abdominal Surgery - gastric sleeve, Hx Cholecystectomy, Hx Gynecologic Surgery - right ovary, Hx Tonsillectomy, Hx Tubal Ligation. Denies: Hx Hysterectomy - Immunizations Hx Diphtheria, Pertussis, Tetanus Vaccination: No Physical Exam - Vital signs Vitals: Temp Pulse Resp BP Pulse Ox 98.2 F 71 18 105/77 99 10/07/20 17:11 04/03/20 17:11 04/03/20 17:11 04/03/20 17:11 04/03/20 17:11 Course - Vital Signs Vital signs: Temp Pulse Resp BP Pulse Ox 98.2 F 71 18 105/77 99 04/03/20 17:11 04/03/20 17:11 04/03/20 17:11 04/03/20 17:11 04/03/20 17:11 Doctor's Discharge - Discharge Referrals: TERESA AWAN PA-C [Primary Care Provider] - Follow up as needed
[2020-04-03 18:30] LABS: APPEARANCE,URINE CLEAR; BILIRUBIN,URINE NEGATIVE (NEGATIVE); COLOR,URINE STRAW; GLUCOSE, URINE NEGATIVE (NEGATIVE); KETONES,URINE NEGATIVE (NEGATIVE); PROTEIN,URINE NEGATIVE (NEGATIVE); URINE SPECIFIC GRAVITY 1.008; UROBILINOGEN,URINE NEGATIVE mg/dL (<2.0)
--- NOTE | 2020-04-03 18:31 | RADIOLOGY REPORT (SQ) ---
EXAM DESCRIPTION: KUB/ABDOMEN (SINGLE VIEW) IMAGES COMPLETED DATE/TIME: 04/03/2020 6:19 pm REASON FOR STUDY: constipation COMPARISON: 2010 NUMBER OF VIEWS: One view. TECHNIQUE: Supine radiographic image of the abdomen acquired. LIMITATIONS: None. FINDINGS: BOWEL GAS PATTERN: No evidence of bowel obstruction. There is considerable stool in the r ectum. CALCIFICATIONS: No suspicious calcifications. SOFT TISSUES: No gross mass or suggestion of organomegaly. HARDWARE: None in the abdomen. BONES: No acute fracture. No worrisome bone lesions. OTHER: No other significant finding. IMPRESSION: Cannot exclude constipation. TECHNICAL DOCUMENTATION: JOB ID: [id number] 2010 [employer]- All Rights Reserved Reading location - IP/workstation name: [email or web address]
[2020-04-03] MEDS ORDERED: ACETAMINOPHEN 325 MG TABLET PO ONE (19:54)
== END 2020-04-04 00:01 | disposition left against medical advice (07) ==
LOC: ER 17:04
DX: R10.9 Unspecified abdominal pain (principal); E78.00 Pure hypercholesterolemia, unspecified; I10 Essential (primary) hypertension; E11.9 Type 2 diabetes mellitus without complications
CPT/HCPCS: 74018; 81001; 99281

== ENCOUNTER 2020-04-24 22:21 | Emergency (ER) | payer BC ==
--- NOTE | 2020-04-24 22:43 | ER Document Report ---
ED Medical Screen (RME) - General Chief Complaint: Headache Stated Complaint: SEVERE HIGH BLOOD PRESSURE ISSUES Time Seen by Provider: 04/24/20 22:31 Primary Care Provider: TERESA AWAN PA-C [Primary Care Provider] - Follow up as needed Mode of Arrival: Ambulatory Information source: Patient Notes: 49-year-old female presented to ED for complaint of elevated blood pressure of 212/97 at home. She states she told her she was not feeling well so he did her blood pressure. She is on losartan chlorothiazide. She has been having dizziness and headache she states that she did go to [place] in February and he told her she had had multiple mini strokes and had a large stroke in February and now she had right-sided weakness from the stroke and started on therapy. She states that the doctor [place] expected her primary care to start her on blood thinners and they have not started on blood thinners. She states Wednesday she had numbness and weakness to her right arm and right leg but she did not go to the doctor because she thought it was just another mini stroke. She is coming in today because she is having a lot of nausea dizziness headache and elevated blood pressure. I have ordered labs and head CT and she will be seen by another provider. I have greeted and performed a rapid initial assessment of this patient. A comprehensive ED assessment and evaluation of the patient, analysis of test results and completion of medical decision making process will be conducted by an additional ED providers. TRAVEL OUTSIDE OF THE [place] IN LAST 30 DAYS: No - Related Data Allergies/Adverse Reactions: cephalexin monohydrate [From Keflex] Allergy (Intermediate, Verified 04/24/20 22:31) DIFFICULTY BREATHING,SUNBURN TYPE RASH lamotrigine [From Lamictal] Allergy (Verified 04/24/20 22:31) UNKNOWN Penicillins Allergy (Verified 04/24/20 22:31) RASH Past Medical History - Past Medical History Cardiac Medical History: Reports: Hx Hypercholesterolemia, Hx Hypertension - Lisinopril with HCTZ Denies: Hx Coronary Artery Disease, Hx Heart Attack Pulmonary Medical History: Reports: Hx Asthma - Neb & Inhaler, Hx Pneumonia Denies: Hx Bronchitis, Hx COPD, Hx Tuberculosis Neurological Medical History: Denies: Hx Cerebrovascular Accident, Hx Seizures Endocrine Medical History: Reports: Hx Diabetes Mellitus Type 2 Renal/ Medical History: Denies: Hx Peritoneal Dialysis Musculoskeltal Medical History: Denies Hx Arthritis Psychiatric Medical History: Reports: Hx Bipolar Disorder, Hx Schizophrenia - schizoaffect disorder Past Surgical History: Reports: Hx Abdominal Surgery - gastric sleeve, Hx Cholecystectomy, Hx Gynecologic Surgery - right ovary, Hx Tonsillectomy, Hx Tubal Ligation. Denies: Hx Hysterectomy - Immunizations Hx Diphtheria, Pertussis, Tetanus Vaccination: No Physical Exam - Vital signs Vitals: Temp Pulse Resp BP Pulse Ox 98.1 F 85 18 144/117 H 98 04/24/20 22:27 04/24/20 22:27 04/24/20 22:27 04/24/20 22:27 04/24/20 22:27 Course - Vital Signs Vital signs: Temp Pulse Resp BP Pulse Ox 98.1 F 85 18 144/117 H 98 04/24/20 22:27 04/24/20 22:27 04/24/20 22:27 04/24/20 22:27 04/24/20 22:27 Doctor's Discharge - Discharge Referrals: TERESA AWAN PA-C [Primary Care Provider] - Follow up as needed
[2020-04-24 23:05] LABS: ABSOLUTE BASOPHILS # (AUTO) 0.1 10^3/uL (0.0-0.2); ABSOLUTE EOSINOPHILS # (AUTO) 0.3 10^3/uL (0.0-0.6); ABSOLUTE LYMPHOCYTES (AUTO) 3.2 10^3/uL (0.5-4.7); ABSOLUTE MONOCYTES (AUTO) 0.9 10^3/uL (0.1-1.4); BASOPHILS % (AUTO) 0.9 % (0-2); HEMATOCRIT 38.8 % (36.0-47.0); HEMOGLOBIN 12.7 g/dL (12.0-15.5); LYMPHOCYTES % (AUTO) 23.7 % (13-45); MEAN CORPUSCULAR HEMOGLOBIN 29.1 pg (27.0-33.4); MEAN CORPUSCULAR HGB CONC 32.6 g/dL (32.0-36.0); MEAN CORPUSCULAR VOLUME 89 fl (80-97); MONOCYTES % (AUTO) 6.5 % (3-13); PLATELET COUNT 278 10^3/uL (150-450); RED BLOOD COUNT 4.34 10^6/uL (3.72-5.28); RED CELL DISTRIBUTION WIDTH 15.5 % (11.5-14.0); SEGMENTED NEUTROPHILS % (AUTO) 66.9 % (42-78); TOTAL CELLS COUNTED % (AUTO) 100 %; WHITE BLOOD COUNT 13.4 10^3/uL (4.0-10.5)
[2020-04-24 23:09] LABS: INTERNATIONAL RATION (INR) 0.87
[2020-04-24 23:10] LABS: PARTIAL THROMBOPLASTIN TIME 27.2 SEC (23.5-35.8)
[2020-04-24 23:24] LABS: ALBUMIN 4.4 g/dL (3.5-5.0); ALKALINE PHOSPHATASE 104 U/L (38-126); ANION GAP 14 (5-19); ASPARTATE AMINO TRANSFERASE 28 U/L (14-36); BILIRUBIN,DIRECT 0.2 mg/dL (0.0-0.4); BILIRUBIN,TOTAL 0.4 mg/dL (0.2-1.3); BLOOD UREA NITROGEN 18 mg/dL (7-20); CALCIUM 10.7 mg/dL (8.4-10.2); CARBON DIOXIDE 19 mmol/L (22-30); CHLORIDE 106 mmol/L (98-107); GLUCOSE 108 mg/dL (75-110); POTASSIUM 4.1 mmol/L (3.6-5.0); TOTAL PROTEIN 7.1 g/dL (6.3-8.2)
--- NOTE | 2020-04-24 23:29 | RADIOLOGY REPORT (SQ) ---
CLINICAL HISTORY: Headache weakness history of stroke COMPARISON: 03/16/2020. TECHNIQUE: CT HEAD WITHOUT IV CONTRAST on 04/24/2020 10:44 PM CDT This exam was performed according to our departmental dose-optimization program, which includes automated exposure control, adjustment of the mA and/or kV according to patient size and/or use of iterative reconstruction technique. FINDINGS: There is no acute hemorrhage, mass effect or midline shift. Weber-white differentiation is preserved. There is no hydrocephalus. There is no significant volume loss for age. The calvarium is intact. Orbits and globes are unremarkable. There is near-complete opacification of the left maxillary sinus. Mastoid air cells are clear. IMPRESSION: No acute intracranial findings.
--- NOTE | 2020-04-25 00:11 | ER Document Report ---
ED General - General Chief Complaint: Headache Stated Complaint: SEVERE HIGH BLOOD PRESSURE ISSUES Time Seen by Provider: 04/24/20 22:31 Primary Care Provider: TERESA AWAN PA-C [Primary Care Provider] - Follow up as needed Mode of Arrival: Ambulatory TRAVEL OUTSIDE OF THE [place] IN LAST 30 DAYS: No - HPI Notes: 49-year-old female presents from home after elevated blood pressure reading. Patient states that she was standing in her bathroom and was not really feeling well, she had her take her blood pressure and reportedly was 212/97. Has been states that he took her blood pressure on 2 other occasions and readings were 197 then 195 systolic. Patient reports compliance with her medications, states she typically takes her blood pressure medicines in the morning. She currently denies complaints other than feeling tired. Denies head ache, dizziness, chest pain, shortness of breath, current numbness or weakness. Patient is unsure about what her blood pressure typically runs, has been states it is usually 130s over 90s. The triage note references some numbness that happened on Wednesday, patient states she was at [employer] and had right-sided numbness involving her right arm/leg/body. This lasted for about 1 hour. Patient states that she has seen neurology at [facility], she was told that she had multiple mini strokes involving the right side. She states she is taking aspirin headache cholesterol medicine daily. She also takes lithium, Latuda and Wellbutrin. - Related Data Allergies/Adverse Reactions: cephalexin monohydrate [From Keflex] Allergy (Intermediate, Verified 04/24/20 22:31) DIFFICULTY BREATHING,SUNBURN TYPE RASH lamotrigine [From Lamictal] Allergy (Verified 04/24/20 22:31) UNKNOWN Penicillins Allergy (Verified 04/24/20 22:31) RASH Past Medical History - General Information source: Patient - Social History Smoking Status: Former Smoker Frequency of alcohol use: None Drug Abuse: None Family History: Reviewed & Not Pertinent, DM - Past Medical History Cardiac Medical History: Reports: Hx Hypercholesterolemia, Hx Hypertension - Lisinopril with HCTZ Denies: Hx Coronary Artery Disease, Hx Heart Attack Pulmonary Medical History: Reports: Hx Asthma - Neb & Inhaler, Hx Pneumonia Denies: Hx Bronchitis, Hx COPD, Hx Tuberculosis Neurological Medical History: Denies: Hx Cerebrovascular Accident, Hx Seizures Endocrine Medical History: Reports: Hx Diabetes Mellitus Type 2 Renal/ Medical History: Denies: Hx Peritoneal Dialysis Musculoskeletal Medical History: Denies Hx Arthritis Psychiatric Medical History: Reports: Hx Bipolar Disorder, Hx Schizophrenia - schizoaffect disorder Past Surgical History: Reports: Hx Abdominal Surgery - gastric sleeve, Hx Cholecystectomy, Hx Gynecologic Surgery - right ovary, Hx Tonsillectomy, Hx Tubal Ligation. Denies: Hx Hysterectomy - Immunizations Hx Diphtheria, Pertussis, Tetanus Vaccination: No Hx Pneumococcal Vaccination: 04/29/13 Review of Systems - Review of Systems Constitutional: denies: Fever EENT: denies: Blurred vision Cardiovascular: denies: Chest pain Respiratory: denies: Short of breath Gastrointestinal: No symptoms reported Genitourinary: No symptoms reported Female Genitourinary: No symptoms reported Musculoskeletal: No symptoms reported Skin: No symptoms reported Hematologic/Lymphatic: No symptoms reported Neurological/Psychological: denies: Weakness, Headaches, Numbness Physical Exam - Vital signs Vitals: Temp Pulse Resp BP Pulse Ox 98.1 F 85 18 144/117 H 98 04/24/20 22:27 04/24/20 22:27 04/24/20 22:27 04/24/20 22:27 04/24/20 22:27 - General General appearance: Appears well, Alert In distress: None - HEENT Head: Normocephalic, Atraumatic Eyelashes: Normal Pupils: PERRL - Respiratory Breath sounds: Normal - Cardiovascular Rhythm: Regular Heart sounds: Normal auscultation - Abdominal Inspection: Obese Tenderness: Nontender - Extremities General upper extremity: Normal ROM General lower extremity: Normal ROM - Neurological Neuro grossly intact: Yes Cognition: Normal Orientation: AAOx4 Notes: Face is symmetric and speech is clear. Strength is 5/5 in the upper extremities, no drift. Strength is 5/5 in the lower extremities, no drift. Sensation is intact to all extremities. Coordination is intact. - Psychological Associated symptoms: Flat affect - Skin Skin Temperature: Warm Course - Re-evaluation Re-evalutation: 49-year-old female with history of hypertension and reported stroke history here with elevated blood pressure reading at home. She currently denies complaints. She reports compliance with her blood pressure medication. Blood pressure recordings here without marked hypertension. 144/117, 157/94, and most recent 136/93. On exam patient is well-appearing, has no gross focal neuro deficits, lungs are clear, no peripheral edema. Also references an episode of total right sided body numbness that occurred for 1 hour that occurred 5 days ago, unsure what to make of it, does not sound typical for CVA presentation, potentially might have had migraine-like syndrome. Through the triage process she had labs and a CT head performed. Minimal le ukocytosis, no left shift. No acute anemia. Coags within normal limits. Electrolytes within normal limits. CT head reviewed, per radiology no acute findings. Patient has been were updated on the laboratory and imaging findings. Patient is eager to go home. Discussed with her importance of maintaining medication compliance and to have close up with her primary care doctor peer return precautions given, stable at time of discharge. - Vital Signs Vital signs: Temp Pulse Resp BP Pulse Ox 98.1 F 85 18 136/93 H 98 04/24/20 22:27 04/24/20 22:27 04/24/20 22:27 04/25/20 00:00 04/25/20 00:02 - Laboratory Result Diagrams: 04/24/20 22:47 04/24/20 22:47 Laboratory results interpreted by me: 04/24/20 04/24/20 22:47 22:47 WBC 13.4 H RDW 15.5 H Absolute Neuts (auto) 9.0 H Carbon Dioxide 19 L Est GFR ( Amer) 56 L Est GFR (MDRD) Non-Af 47 L Calcium 10.7 H - Diagnostic Test Radiology reviewed: Image reviewed, Reports reviewed Discharge - Discharge Clinical Impression: Hypertension Qualifiers: Hypertension type: essential hypertension Qualified Code(s): I10 - Essential (primary) hypertension Disposition: HOME, SELF-CARE Additional Instructions: Please continue all medications as prescribed. Please have close follow-up with your primary care doctor. Return to the emergency department for any concerning worsening symptoms. Referrals: TERESA AWAN PA-C [Primary Care Provider] - Follow up as needed
[2020-04-25 01:17] VITALS: BP 138/74
== END 2020-04-25 01:20 | disposition home or self-care (01) ==
LOC: ER 22:21
DX: I10 Essential (primary) hypertension (principal); R51.9 Headache, unspecified; Z79.899 Other long term (current) drug therapy; Z88.1 Allergy status to other antibiotic agents; Z88.0 Allergy status to penicillin; Z88.8 Allergy status to other drugs, medicaments and biological substances; Z87.891 Personal history of nicotine dependence; J45.909 Unspecified asthma, uncomplicated; E11.9 Type 2 diabetes mellitus without complications
CPT/HCPCS: 36415; 70450; 80053; 82553; 85025; 85610; 85730; 99284

== ENCOUNTER 2020-04-26 21:05 | Emergency (ER) | payer BC ==
--- NOTE | 2020-04-26 21:35 | ER Document Report ---
ED Medical Screen (RME) - General Chief Complaint: Leg Pain Stated Complaint: LEG PAIN Time Seen by Provider: 04/26/20 21:30 Primary Care Provider: TERESA AWAN PA-C [Primary Care Provider] - Follow up as needed Mode of Arrival: Ambulatory Information source: Patient Notes: 49-year-old female presented to ED for complaint of pain to the posterior right calf. She states she has a knot to the back of the calf. She states she has been doing physical therapy and they told her to make sure she removed the doctor she did not develop a clot in today when she was at [facility] she also only had severe pain in the right calf. I have ordered a venous Doppler. She was seen here 2 days ago for very elevated blood pressure and she left in the morning due to the blood pressure. We will get a Doppler and get her reassessed after the Doppler. I have greeted and performed a rapid initial assessment of this patient. A comprehensive ED assessment and evaluation of the patient, analysis of test results and completion of medical decision making process will be conducted by an additional ED providers. TRAVEL OUTSIDE OF THE [place] IN LAST 30 DAYS: No - Related Data Allergies/Adverse Reactions: cephalexin monohydrate [From Keflex] Allergy (Intermediate, Verified 04/24/20 22:31) DIFFICULTY BREATHING,SUNBURN TYPE RASH lamotrigine [From Lamictal] Allergy (Verified 04/24/20 22:31) UNKNOWN Penicillins Allergy (Verified 04/24/20 22:31) RASH Past Medical History - Past Medical History Cardiac Medical History: Reports: Hx Hypercholesterolemia, Hx Hypertension - Lisinopril with HCTZ Denies: Hx Coronary Artery Disease, Hx Heart Attack Pulmonary Medical History: Reports: Hx Asthma - Neb & Inhaler, Hx Pneumonia Denies: Hx Bronchitis, Hx COPD, Hx Tuberculosis Neurological Medical History: Denies: Hx Cerebrovascular Accident, Hx Seizures Endocrine Medical History: Reports: Hx Diabetes Mellitus Type 2 Renal/ Medical History: Denies: Hx Peritoneal Dialysis Musculoskeltal Medical History: Denies Hx Arthritis Psychiatric Medical History: Reports: Hx Bipolar Disorder, Hx Schizophrenia - schizoaffect disorder Past Surgical History: Reports: Hx Abdominal Surgery - gastric sleeve, Hx Cholecystectomy, Hx Gynecologic Surgery - right ovary, Hx Tonsillectomy, Hx Tubal Ligation. Denies: Hx Hysterectomy - Immunizations Hx Diphtheria, Pertussis, Tetanus Vaccination: No Physical Exam - Vital signs Vitals: Temp Pulse BP Pulse Ox 98.2 F 78 128/61 H 100 04/26/20 21:33 04/26/20 21:33 04/26/20 21:33 04/26/20 21:33 Course - Vital Signs Vital signs: Temp Pulse Resp BP Pulse Ox 98.2 F 78 128/61 H 100 04/26/20 21:33 04/26/20 21:33 04/26/20 21:33 04/26/20 21:33 Doctor's Discharge - Discharge Referrals: TERESA AWAN PA-C [Primary Care Provider] - Follow up as needed
--- NOTE | 2020-04-26 22:40 | RADIOLOGY REPORT (SQ) ---
EXAM DESCRIPTION: US EXTREMITY VEINS UNILATERAL COMPLETED DATE/TME: 04/26/2020 21:31 CLINICAL HISTORY: 49 years, Female, right calf pain EXAM DESCRIPTION: CLINICAL HISTORY: 49 years Female right calf pain COMPARISON: None. TECHNIQUE: Duplex and color Doppler imaging performed to evaluate the extremity deep venous structures. Compression imaging and augmentation imaging performed. FINDINGS: No thrombus is identified in the deep venous structures imaged. There is normal flow, compressibility, and augmentation throughout. IMPRESSION: No DVT is identified.
[2020-04-27 00:28] LABS: INTERNATIONAL RATION (INR) 0.95; PARTIAL THROMBOPLASTIN TIME 27.8 SEC (23.5-35.8); PROTHROMBIN TIME 12.9 SEC (11.4-15.4)
[2020-04-27 00:30] LABS: ABSOLUTE EOSINOPHILS # (AUTO) 0.3 10^3/uL (0.0-0.6); ABSOLUTE LYMPHOCYTES (AUTO) 3.6 10^3/uL (0.5-4.7); ABSOLUTE MONOCYTES (AUTO) 0.7 10^3/uL (0.1-1.4); ABSOLUTE NEUT (AUTO) 6.4 10^3/uL (1.7-8.2); BASOPHILS % (AUTO) 0.5 % (0-2); EOSINOPHILS % (AUTO) 2.3 % (0-6); HEMATOCRIT 36.8 % (36.0-47.0); HEMOGLOBIN 12.3 g/dL (12.0-15.5); LYMPHOCYTES % (AUTO) 32.7 % (13-45); MEAN CORPUSCULAR HEMOGLOBIN 30.1 pg (27.0-33.4); MEAN CORPUSCULAR HGB CONC 33.3 g/dL (32.0-36.0); MEAN CORPUSCULAR VOLUME 90 fl (80-97); MONOCYTES % (AUTO) 6.1 % (3-13); PLATELET COUNT 265 10^3/uL (150-450); RED BLOOD COUNT 4.08 10^6/uL (3.72-5.28); SEGMENTED NEUTROPHILS % (AUTO) 58.4 % (42-78); TOTAL CELLS COUNTED % (AUTO) 100 %; WHITE BLOOD COUNT 10.9 10^3/uL (4.0-10.5)
[2020-04-27 00:41] LABS: ALBUMIN 4.3 g/dL (3.5-5.0); ALKALINE PHOSPHATASE 81 U/L (38-126); ANION GAP 12 (5-19); ASPARTATE AMINO TRANSFERASE 28 U/L (14-36); BILIRUBIN,DIRECT 0.1 mg/dL (0.0-0.4); BILIRUBIN,TOTAL 0.5 mg/dL (0.2-1.3); BLOOD UREA NITROGEN 16 mg/dL (7-20); CALCIUM 9.3 mg/dL (8.4-10.2); CARBON DIOXIDE 23 mmol/L (22-30); CHLORIDE 104 mmol/L (98-107); GLUCOSE 88 mg/dL (75-110); TOTAL PROTEIN 6.7 g/dL (6.3-8.2)
[2020-04-27 00:44] LABS: POTASSIUM 3.8 mmol/L (3.6-5.0)
--- NOTE | 2020-04-27 01:28 | ER Document Report ---
ED General - General Chief Complaint: Leg Pain Stated Complaint: LEG PAIN Time Seen by Provider: 04/26/20 21:30 Primary Care Provider: TERESA AWAN PA-C [Primary Care Provider] - Follow up as needed Mode of Arrival: Ambulatory TRAVEL OUTSIDE OF THE [place] IN LAST 30 DAYS: No - HPI Context: This is a 49-year-old female with a history of prior ischemic stroke with residual right-sided sequela presenting to the emergency department complaining pain in her posterior right calf. Patient denies being on blood thinners. Patient states that she was doing physical therapy yesterday morning. Patient states she did not notice the onset of pain until around 1800 hrs. yesterday evening when she went to [facility] with her to do some grocery shopping. Patient states she was walking and felt a sudden onset of sharp pain in her right posterior calf. Patient rates the pain as a 3 on a scale of 0-5. Patient localizes the pain to her right upper posterior calf. Patient states there was a associated "hard lump" present in the area of pain. Patient states that the pain is sharp and is exacerbated by walking and palpation. Patient states nothi ng alleviates the pain. Patient states that she contacted her primary care provider; her PCP recommended patient go to the ED to be evaluated for the possibility of a blood clot. Patient denies worsening extremity weakness, headache, visual change, shortness of breath, chest pain, nausea and vomiting, abdominal pain. Patient denies history of Covid infection, known exposure to Covid positive patients or known exposure to patients investigation for Covid. Associated symptoms: Other - See HPI Exacerbated by: Other - See HPI Relieved by: Other - See HPI - Related Data Allergies/Adverse Reactions: cephalexin monohydrate [From Keflex] Allergy (Intermediate, Verified 04/24/20 22:31) DIFFICULTY BREATHING,SUNBURN TYPE RASH lamotrigine [From Lamictal] Allergy (Verified 04/24/20 22:31) UNKNOWN Penicillins Allergy (Verified 04/24/20 22:31) RASH Home Medications: latuda, lithium, bp med, Past Medical History - General Information source: Patient - Social History Smoking Status: Never Smoker Drug Abuse: None Family History: Reviewed & Not Pertinent, DM - Past Medical History Cardiac Medical History: Reports: Hx Hypercholesterolemia, Hx Hypertension - Lisinopril with HCTZ Denies: Hx Coronary Artery Disease, Hx Heart Attack Pulmonary Medical History: Reports: Hx Asthma - Neb & Inhaler, Hx Pneumonia Denies: Hx Bronchitis, Hx COPD, Hx Tuberculosis Neurological Medical History: Denies: Hx Cerebrovascular Accident, Hx Seizures Endocrine Medical History: Reports: Hx Diabetes Mellitus Type 2 Renal/ Medical History: Denies: Hx Peritoneal Dialysis Musculoskeletal Medical History: Denies Hx Arthritis Psychiatric Medical History: Reports: Hx Bipolar Disorder, Hx Schizophrenia - schizoaffect disorder Past Surgical History: Reports: Hx Abdominal Surgery - gastric sleeve, Hx Cholecystectomy, Hx Gynecologic Surgery - right ovary, Hx Tonsillectomy, Hx Tubal Ligation. Denies: Hx Hysterectomy - Immunizations Hx Diphtheria, Pertussis, Tetanus Vaccination: No Hx Pneumococcal Vaccination: 04/29/13 Review of Systems - Review of Systems Constitutional: No symptoms reported EENT: No symptoms reported Cardiovascular: No symptoms reported Respiratory: No symptoms reported Gastrointestinal: No symptoms reported Genitourinary: No symptoms reported Female Genitourinary: No symptoms reported Musculoskeletal: Other - Calf pain Skin: No symptoms reported Hematologic/Lymphatic: No symptoms reported Neurological/Psychological: No symptoms reported -: Yes All other systems reviewed and negative Physical Exam - Vital signs Vitals: Temp Pulse BP Pulse Ox 98.2 F 78 128/61 H 100 04/26/20 21:33 04/26/20 21:33 04/26/20 21:33 04/26/20 21:33 - Notes Notes: CONSTITUTIONAL [Vital signs reviewed, Patient appears comfortable, Alert and oriented X 3, Normal stature.] HEAD [Atraumatic, Normocephalic.] EYES [Eyes are normal to inspection, No discharge from eyes, Extraocular muscles intact, Sclera are normal, Conjunctiva are normal.] ENT Nose examination normal, Mouth normal to inspection.] NECK [Normal ROM, No jugular venous distention, No meningeal signs, no carotid bruit.] RESPIRATORY CHEST [Chest is nontender, Breath sounds normal, No respiratory distress.] CARDIOVASCULAR [RRR, No murmurs, Normal S1 S2, No rub, No gallop.] ABDOMEN [Abdomen is nontender, No pulsatile masses, No other masses, Bowel sounds normal, No distension, No peritoneal signs, No hernias.] BACK [There is no CVA Tenderness, There is no tenderness to palpation, Normal inspection.] UPPER EXTREMITY [Inspection normal, No cyanosis, No clubbing, No edema, 2+ radial pulses.] LOWER EXTREMITY Examination the patient's right lower extremity shows a small area of soft tissue swelling with some associated ecchymosis. This is present just below the popliteal crease. Palpation of the area does not seem to elicit a painful response from the patient. There is no evidence of Achilles tendon rupture. No erythema is present. SKIN [Skin is warm, Skin is dry, see lower extremity exam] PSYCHIATRIC [Normal affect. ] Course - Re-evaluation Re-evalutation: 04/27/20 01:32 Results of ED MSE discussed with patient and patient's spouse. All questions were answered prior to discharge. Emergency signs and symptoms, reasons to return to the emergency department discussed with patient and patient's spouse. - Vital Signs Vital signs: Temp Pulse Resp BP Pulse Ox 98.2 F 78 128/61 H 100 04/26/20 21:33 04/26/20 21:33 04/26/20 21:33 04/26/20 21:33 - Laboratory Result Diagrams: 04/26/20 23:50 04/26/20 23:50 Laboratory results interpreted by me: 04/26/20 23:50 WBC 10.9 H RDW 16.0 H - Diagnostic Test Radiology reviewed: Reports reviewed Discharge - Discharge Clinical Impression: Pain of right calf Condition: Stable Disposition: HOME, SELF-CARE Additional Instructions: Return to the Emergency Department without delay if any worse. HOME CARE INSTRUCTIONS & INFORMATION: Thank you for choosing us for your medical needs. We hope you're satisfied with the care you received. After you leave, you must properly care for your problem and, at the same time, observe its progress. Any condition can change. Some illnesses can change rapidly over hours or days. If your condition worsens, return to the Emergency Department or see your physician promptly. ABOUT YOUR X-RAYS AND EKG'S: If you had an EKG or X-rays taken, they have been read by the Emergency Physician. The X-rays and EKG's will also be read by a Radiologist or Medical Collector within 24 hours. If discrepancies are noted, you will be notified by telephone. Please be certain the ED has a correct telephone number & address where you can be reached. Also, realize that some fractures or abnormalities do not show up on initial X-rays. If your symptoms continue, see your physician. ABOUT YOUR LABORATORY TEST: If you had laboratory tests, the results have been reviewed by the Emergency Physician. Some test results (for example cultures) may not be available for several days. You will be contacted if any test result shows you need additional treatment. Please be certain the ED has a correct telephone number and address where you can be reached. ABOUT YOUR MEDICATIONS: You will receive instructions on how to take your medicine on the prescription label you receive. Additional information may be provided by the Pharmacy. If you have questions afterwards, call the ED for clarification or further instructions. Some prescribed medications may cause drowsiness. Do not perform tasks such as driving a car or operating machinery without consulting your Pharmacist. If you feel you need a refill of pain medication, your condition will need re-evaluation. Please do not call for a refill of any medication. ABOUT YOUR SIGNATURE: Signature of this document acknowledges to followin. Understanding that you received emergency treatment and that you may be r eleased before al medical problems are known or treated. Please be certain the ED has a correct phone number & address where you can be reached. 2. Acknowledgement that you will arrange for follow-up care as recommended. 3. Authorization for the Emergency Physician to provide information to your follow-up Physician in order to maximize your care. AT ANY TIME, IF YOUR SYMPTOMS CHANGE SIGNIFICANTLY OR WORSEN OR YOU DEVELOP NEW SYMPTOMS, RETURN TO THE EMERGENCY DEPARTMENT IMMEDIATELY FOR RE-EVALUATION. OUR GOAL IS TO PROVIDE EXCELLENT MEDICAL CARE! WE HOPE THAT WE HAVE MET YOUR EXPECTATIONS DURING YOUR EMERGENCY DEPARTMENT VISIT AND THAT YOU FEEL YOU HAVE RECEIVED EXCELLENT CARE! Referrals: TERESA AWAN PA-C [Primary Care Provider] - 04/29/20
[2020-04-27 02:16] VITALS: BP 142/84
== END 2020-04-27 02:16 | disposition home or self-care (01) ==
LOC: ER 21:05
DX: M79.604 Pain in right leg (principal); I69.351 Hemiplegia and hemiparesis following cerebral infarction affecting right dominant side; E78.00 Pure hypercholesterolemia, unspecified; I10 Essential (primary) hypertension; E11.9 Type 2 diabetes mellitus without complications
CPT/HCPCS: 36415; 80053; 85025; 85610; 85730; 93971; 99284

== ENCOUNTER 2020-05-06 03:52 | Emergency (ER) | payer BC ==
--- NOTE | 2020-05-06 05:14 | RADIOLOGY REPORT (SQ) ---
Right knee x-ray two views on 05/06/2020 at 4:41 AM CLINICAL INDICATION: Right knee pain COMPARISON: None FINDINGS: There is mild joint space narrowing in the medial compartment with minimal osteophyte formation consistent with mild changes of osteoarthritis. No joint effusion is noted. Small bone island is noted in the proximal tibia. There are no fractures. Visualized joints are well aligned. IMPRESSION: Mild changes of osteoarthritis with no acute bony abnormality.
--- NOTE | 2020-05-06 09:32 | ER Document Report ---
Entered by MERLINE ROCK SCRIBE 05/06/20 0809 Acting as scribe for:LORENA LAMA MD ED Extremity Problem, Lower - General Chief Complaint: Knee Pain Stated Complaint: RIGHT KNEE PAIN Primary Care Provider: TERESA AWAN PA-C [Primary Care Provider] - Follow up as needed Mode of Arrival: Wheelchair Information source: Patient Notes: This 49 year old female patient presents to the ED today with complaints pain and swelling to her right knee for the past x1 week. Patient states that she has been using heating pads and ice without resolve. She reports that when she moves her knee a certain way, she hears a "pop" which she describes as the same sensation she felt prior to her left total knee replacement. Denies injury, fall, or trauma. Patient mentions that she is supposed to be starting blood thinners today because she has been having "a lot of strokes." TRAVEL OUTSIDE OF THE [place] IN LAST 30 DAYS: No - Related Data Allergies/Adverse Reactions: cephalexin monohydrate [From Keflex] Allergy (Intermediate, Verified 04/24/20 22:31) DIFFICULTY BREATHING,SUNBURN TYPE RASH lamotrigine [From Lamictal] Allergy (Verified 04/24/20 22:31) UNKNOWN Penicillins Allergy (Verified 04/24/20 22:31) RASH Home Medications: lithium, latuda, wellbutrin, muscle spasm med, atenolol, lisinopril/HCTZ, metformin Past Medical History - General Information source: Patient - Social History Smoking Status: Never Smoker Cigarette use (# per day): No Chew tobacco use (# tins/day): No Smoking Education Provided: No Lives with: Spouse/Significant other Family History: Reviewed & Not Pertinent, DM Patient has suicidal ideation: No Patient has homicidal ideation: No - Past Medical History Cardiac Medical History: Reports: Hx Hypercholesterolemia, Hx Hypertension - Lisinopril with HCTZ Pulmonary Medical History: Reports: Hx Asthma - Neb & Inhaler, Hx Pneumonia Endocrine Medical History: Reports: Hx Diabetes Mellitus Type 2 Musculoskeletal Medical History: Reports Hx Arthritis Psychiatric Medical History: Reports: Hx Bipolar Disorder, Hx Schizoaffective Disorder Past Surgical History: Reports: Hx Abdominal Surgery - gastric sleeve, Hx Cholecystectomy, Hx Gynecologic Surgery - right ovary, Hx Orthopedic Surgery - Left total knee replacement, Hx Tonsillectomy, Hx Tubal Ligation - Immunizations Hx Diphtheria, Pertussis, Tetanus Vaccination: No Hx Pneumococcal Vaccination: 04/29/13 Review of Systems - Review of Systems Constitutional: No symptoms reported EENT: No symptoms reported Cardiovascular: No symptoms reported Respiratory: No symptoms reported Gastrointestinal: No symptoms reported Genitourinary: No symptoms reported Female Genitourinary: No symptoms reported Musculoskeletal: See HPI, Joint pain, Joint swelling Skin: No symptoms reported Hematologic/Lymphatic: No symptoms reported Neurological/Psychological: No symptoms reported -: Yes All other systems reviewed and negative Physical Exam - Vital signs Vitals: Temp Pulse Resp BP Pulse Ox 98.5 F 75 18 128/101 H 98 05/06/20 03:56 05/06/20 03:56 05/06/20 03:56 05/06/20 03:56 05/06/20 03:56 - General General appearance: Alert In distress: None - HEENT Head: Normocephalic, Atraumatic Eyes: Normal Pupils: PERRL - Respiratory Respiratory status: No respiratory distress Chest status: Nontender Breath sounds: Normal Chest palpation: Normal - Cardiovascular Rhythm: Regular Heart sounds: Normal auscultation Murmur: No Friction rub: No Gallop: None auscultated - Abdominal Inspection: Obese Distension: No distension Bowel sounds: Normal Tenderness: Nontender - Abdomen soft Organomegaly: No organomegaly - Back Back: Normal, Nontender - Extremities General upper extremity: Normal inspection General lower extremity: No: Edema Knee: Other - Prominent adipose tissue appreciated in medial right knee area. The right knee joint itself is mildly warm to the touch, no crepitus noted. Th ere is also adipose tissue appreciated in the medial left knee area that is not as prominent compared to the right. Midline scar noted to left knee from prior knee replacement. - Neurological Neuro grossly intact: Yes Orientation: AAOx4 Jennie Coma Scale Eye Opening: Spontaneous [place] Coma Scale Verbal: Oriented [place] Coma Scale Motor: Obeys Commands Jennie Coma Scale Total: 15 - Psychological Associated symptoms: Normal affect, Normal mood - Skin Skin Temperature: Warm Skin Moisture: Dry Skin Color: Normal Course - Re-evaluation Re-evalutation: 05/06/20 09:29 Patient resting not showing any signs of distress. Discussed with patient the results of her x-ray which showed mild arthritis in her right knee and a joint effusion noted. There is no comment on the fatty tissue noted on the medial side of her right knee based on her x-ray report. Ultrasound preliminary results shows no DVT in the right lower extremity. - Vital Signs Vital signs: Temp Pulse Resp BP Pulse Ox 98.5 F 75 18 136/90 H 98 05/06/20 03:56 05/06/20 03:56 05/06/20 03:56 05/06/20 04:58 05/06/20 03:56 - Diagnostic Test Radiology reviewed: Image reviewed, Reports reviewed Radiology results interpreted by me: 05/06/20 09:29 Knee X-Ray 05/06/20 00:00 IMPRESSION: Mild changes of osteoarthritis with no acute bony abnormality. Right knee x-ray shows mild changes of osteoarthritis with no other acute bony abnormality. 05/06/20 09:30 Preliminary reading of ultrasound of right lower extremity shows no evidence of DVT Discharge - Discharge Clinical Impression: Osteoarthritis of right knee Condition: Stable Disposition: HOME, SELF-CARE Additional Instructions: Osteoarthritis Your symptoms are due to osteoarthritis. Osteoarthritis is inflammation caused by "wear and tear" of the joints. There is no cure for osteoarthritis, but medicine can help the pain and stiffness. It's important to keep the joints moving. Move the joints through their full range daily. Light exercise helps, but if exercise hurts, switch to a non-impact exercise like swimming. Local warmth may help ease pain. Call or return if any joint becomes severely swollen or increasingly painful, or if you have fever or spreading redness. Do not take any NSAIDs as you discussed with me that you are to begin blood thinner medications today. Referrals: TERESA AAWN PA-C [Primary Care Provider] - Follow up as needed I personally performed the services described in the documentation, reviewed and edited the documentation which was dictated to the scribe in my presence, and it accurately records my words and actions.
[2020-05-06 09:49] VITALS: BP 117/60
--- NOTE | 2020-05-06 11:20 | RADIOLOGY REPORT (SQ) ---
EXAM DESCRIPTION: VENOUS UNILATERAL LOWER IMAGES COMPLETED DATE/TIME: 05/06/2020 11:03 am REASON FOR STUDY: right lower leg pain swelling medial to knee COMPARISON: None. TECHNIQUE: Dynamic and static mendoza scale and color images acquired of the right leg venous system. S elected spectral images acquired with additional compression and augmentation maneuvers. The contrala teral common femoral vein and saphenofemoral junction were also imaged. Images stored on PACS. LIMITATIONS: None. FINDINGS: COMMON FEMORAL: Normal phasicity, compression and augmentation. No visualized echogenic ma terial on mendoza scale. No defects on color images. FEMORAL: Normal compression and augmentation. No visualized echogenic material on mendoza scale. No defe cts on color images. POPLITEAL: Normal compression, augmentation. No visualized echogenic material on mendoza scale. No defec ts on color images. CALF VESSELS: Normal compression, augmentation. No visualized echogenic material on mendoza scale. No de fects on color images. GSV and SSV: Normal compression, augmentation. No visualized echogenic material on mendoza scale. No def ects on color images. ANY DEEP VENOUS INSUFFICIENCY: Not evaluated. ANY EVIDENCE OF POPLITEAL CYST: No. OTHER: No other significant finding. CONTRALATERAL COMMON FEMORAL VEIN AND SAPHENOFEMORAL JUNCTION: Normal phasicity, compression and augmentation. No visualized echogenic material on mendoza scale. No de fects on color images. IMPRESSION: NO EVIDENCE DVT OR SVT IN THE RIGHT LEG. TECHNICAL DOCUMENTATION: JOB ID: [id number] 2010 [employer]- All Rights Reserved Reading location - IP/workstation name: [email or web address]
== END 2020-05-06 09:49 | disposition home or self-care (01) ==
LOC: ER 03:52
DX: M17.11 Unilateral primary osteoarthritis, right knee (principal); J45.909 Unspecified asthma, uncomplicated; I10 Essential (primary) hypertension; E11.9 Type 2 diabetes mellitus without complications; F31.9 Bipolar disorder, unspecified; Z79.899 Other long term (current) drug therapy; Z96.652 Presence of left artificial knee joint; Z98.84 Bariatric surgery status; Z86.73 Personal history of transient ischemic attack (TIA), and cerebral infarction without residual deficits; Z88.1 Allergy status to other antibiotic agents; Z88.8 Allergy status to other drugs, medicaments and biological substances; Z88.0 Allergy status to penicillin; Z79.84 Long term (current) use of oral hypoglycemic drugs
CPT/HCPCS: 93971; 99284

== ENCOUNTER → 2020-07-02 | Outpatient (CLI) | payer BC ==
--- NOTE | 2020-07-03 10:39 | RADIOLOGY REPORT (SQ) ---
EXAM DESCRIPTION: MRI RT LOWER JOINT WITHOUT IMAGES COMPLETED DATE/TIME: 07/02/2020 11:38 am REASON FOR STUDY: (M25.561)PAIN IN RIGHT KNEE M25.561 PAIN IN RIGHT KNEE COMPARISON: 05/06/2020 TECHNIQUE: Rightknee images acquired and stored on PACS. Multiplanar images include fat sensitive s equences as T1, water sensitive sequences as FST2 or STIR, cartilage sensitive sequences as FSPD, and gradient echo sequences. LIMITATIONS: None. FINDINGS: JOINT AND BURSAE: No effusion. BONE CORTEX AND MARROW: No alteration of signal to suggest marrow replacement. No worrisome bone lesi ons. No occult fracture. ACL: Intact. No degeneration or ganglion cyst. PCL: Intact. MCL: Intact. No periligamentous edema or fluid. LCL: Intact. No periligamentous edema or fluid. MEDIAL MENISCUS: Inferiorly surfacing longitudinal horizontal oblique tear of the posterior horn. In creased intrasubstance signal of the body without surfacing tear. The anterior horn demonstrates nor mal caliber and signal. LATERAL MENISCUS: Normal caliber and signal. MEDIAL COMPARTMENT: Irregular thinning with focal partial-thickness cartilaginous defect demonstratin g an element of delamination involving the weight-bearing surface of the medial femoral condyle. The tibial plateau articular cartilage appears to be largely preserved. Small marginal osteophytes are demonstrated. LATERAL COMPARTMENT: Normal, uniform cartilage thickness and signal. Small marginal osteophytes are demonstrated. PATELLA: Diffuse chondromalacia with near full-thickness fissuring of both the medial and lateral pat ellar facet. Small marginal osteophytes are demonstrated. EXTENSOR MECHANISM: Intact. Quadriceps and patella tendons normal. SOFT TISSUES: Adjacent muscles and subcutaneous tissues normal. Normal flow void in popliteal artery and vein. OTHER: No other significant finding. IMPRESSION: Longitudinal oblique tear of the posterior horn of the medial meniscus. Background of m ild tricompartmental degenerative changes noting near full-thickness cartilaginous injury of the medi al femoral condyle weight-bearing surface. TECHNICAL DOCUMENTATION: JOB ID: [id number] 2010 [employer]- All Rights Reserved Reading location - IP/workstation name: [email or web address]
== END ==
LOC: RAD 10:50
PROVIDERS: ATTEND Physician Assistant
DX: S83.241A Other tear of medial meniscus, current injury, right knee, initial encounter (principal); X58.XXXA Exposure to other specified factors, initial encounter; M25.561 Pain in right knee

== ENCOUNTER → 2020-07-10 | Outpatient (CLI) | payer BC ==
--- NOTE | 2020-07-10 12:31 | RADIOLOGY REPORT (SQ) ---
EXAM DESCRIPTION: MRI HEAD COMBO IMAGES COMPLETED DATE/TIME: 07/10/2020 9:35 am REASON FOR STUDY: (I63.9)CEREBRAL INFARCTION, UNSPECIFIED I63.9 CEREBRAL INFARCTION, UNSPECIFIED COMPARISON: 01/03/2020 TECHNIQUE: Multiplanar imaging includes noncontrasted T1, T2, FLAIR, diffusion with ADC map and post gadolinium contrast T1 sequences. Images stored on PACS. CONTRAST TYPE AND DOSE: 20 mL Prohance. RENAL FUNCTION: Not indicated. ACR Type II contrast agent associated with few, if any, unconfounded cases of NSF LIMITATIONS: None. FINDINGS: ANATOMY: No anomalies. Normal vascular flow voids. Pituitary fossa normal. CSF SPACES: Normal in size and contour. No hemorrhage. CEREBRUM: Sulci and gyri normal in size and contour. No evidence of hemorrhage, mass, or extraaxial f luid collection. No abnormal enhancement post contrast. POSTERIOR FOSSA: No signal alteration. No hemorrhage. No edema, masses, or mass effect. Internal darcy tory canals, cerebellopontine angles, normal. Small amount of fluid in the mastoids. No enhancing le sions. No abnormal enhancement post contrast. DIFFUSION IMAGING: Negative for acute or subacute infarction. ORBITS: No masses. Globes normal. PARANASAL SINUSES: Small amount of fluid left frontal sinus. Mucosal thickening left maxillary sinus . OTHER: No other significant finding. IMPRESSION: Normal brain. Frontal and maxillary sinus disease. EVIDENCE OF ACUTE STROKE: NO. TECHNICAL DOCUMENTATION: JOB ID: [id number] 2010 [employer]- All Rights Reserved Reading location - IP/workstation name: [email or web address]
--- NOTE | 2020-07-10 12:51 | RADIOLOGY REPORT (SQ) ---
EXAM DESCRIPTION: CAROTID DOPPLER IMAGES COMPLETED DATE/TIME: 07/10/2020 9:06 am REASON FOR STUDY: CVA I63.9 CEREBRAL INFARCTION, UNSPECIFIED COMPARISON: None. TECHNIQUE: Grayscale ultrasound, Doppler velocity and spectra, and color Doppler images acquired of the extra-cranial carotid and vertebral arteries. Images stored on PACS. LIMITATIONS: None. FINDINGS: RIGHT CAROTID CCA Velocities: Within normal limits. ICA Velocities Peak systolic 161 cm/s. End diastolic 28 cm/s. Proximal ICA/CCA peak systolic ratio 2.23. Minimal intimal thickening. LEFT CAROTID CCA Velocities: Within normal limits. ICA Velocities Peak systolic 97 cm/s. End diastolic 38 cm/s. Proximal ICA/CCA peak systolic ratio 1.08. Minimal intimal thickening. VERTEBRAL ARTERIES: Antegrade flow. Normal waveforms. SUBCLAVIAN ARTERIES: No finding. OTHER: No other significant finding. IMPRESSION: NO HEMODYNAMICALLY SIGNIFICANT STENOSIS. COMMENT: Quality ID #[id number]: Velocity criteria are extrapolated from the diameter data as defined by t he Society of Radiologists in Ultrasound Consensus Conference. Radiology 2003: 229; 340-346. TECHNICAL DOCUMENTATION: JOB ID: [id number] [employer]- All Rights Reserved Reading location - IP/workstation name: [email or web address]
== END ==
LOC: SP 07:29
PROVIDERS: ATTEND Psychiatry & Neurology Neurology
DX: I63.9 Cerebral infarction, unspecified (principal)
CPT/HCPCS: 93880; 70553; A9576

== ENCOUNTER → 2020-07-15 | Outpatient (CLI) | payer BC ==
--- NOTE | 2020-07-16 08:51 | WOMENS IMAGING REPORT ---
EXAM DESCRIPTION: 3D SCREENING MAMMO BILAT IMAGES COMPLETED DATE/TIME: 07/15/2020 8:00 am REASON FOR STUDY: Z12.31 ENCOUNTER FOR SCREENING MAMMOGRAM FOR MALIGNANT NEOPLASM OF BREAST Z12.31 ENCNTR SCREEN MAMMOGRAM FOR MALIGNANT NEOPLASM OF ONEAL COMPARISON: 07/12/2019, 06/24/2018, 05/11/2017, 04/23/2016 EXAM PARAMETERS: Standard craniocaudal and mediolateral oblique views of each breast recorded using digital acquisition and breast tomosynthesis. Read with the assistance of CAD. .[facility] - [employer] Version 9.2 LIMITATIONS: None. FINDINGS: RIGHT BREAST MASSES: Irregular mass in the upper outer right breast approximately 11 o'clock position 5- 6 cm from the nipple. CALCIFICATIONS: No new or suspicious calcifications. ARCHITECTURAL DISTORTION: None. ASYMMETRY: None noted. OTHER: No other significant findings. LEFT BREAST MASSES: No suspicious masses. CALCIFICATIONS: No new or suspicious calcifications. ARCHITECTURAL DISTORTION: None. ASYMMETRY: None noted. OTHER: No other significant findings. IMPRESSION: Mass in the right breast. Further evaluation with diagnostic mammogram and ultrasound r ecommended. 0 Incomplete: Needs Additional Imaging Evaluation and/or prior Mammograms for Comparison. BREAST DENSITY: b. There are scattered areas of fibroglandular density. BIRAD: ASSESSMENT: 0 Incomplete: Needs Additional Imaging Evaluation and/or prior Mammograms for C omparison. RECOMMENDATION: RECOMMENDED FOLLOW-UP: Right breast diagnostic mammogram and possible ultrasound. ADDITIONAL RECOMMENDATION- No additional recommendations. The patient will be contacted for additional imaging. COMMENT: The patient has been notified of the results by letter per [place] requirements. Additional no tification policies are in place for contacting patient with suspicious or incomplete findings. Quality ID #225: [employer] recommends an annual screening mammogram for women aged 40 years or over. This facility utilizes a reminder system to ensure that all patients receive reminder letters, and/or direct phone calls for appointments. This includes reminders for routine scr eening mammograms, diagnostic mammograms, or other Breast Imaging Interventions when appropriate. Th is patient will be placed in the appropriate reminder system. TECHNICAL DOCUMENTATION: FINDING NUMBER: (1) ASSESSMENT: (1) JOB ID: [id number] [employer]- All Rights Reserved Reading location - IP/workstation name: [email or web address]
== END ==
LOC: WI 14:56
PROVIDERS: ATTEND Family Medicine
DX: Z12.31 Encounter for screening mammogram for malignant neoplasm of breast (principal); N63.11 Unspecified lump in the right breast, upper outer quadrant
CPT/HCPCS: 77063; 77067

== ENCOUNTER → 2020-07-26 | Outpatient (CLI) | payer BC ==
--- NOTE | 2020-07-26 10:54 | WOMENS IMAGING REPORT ---
EXAM DESCRIPTION: RIGHT DIAGNOSTIC MAMMO W/CAD; U/S BREAST UNILATERAL, COMPL IMAGES COMPLETED DATE/TIME: 07/26/2020 10:03 am; 07/26/2020 10:27 am REASON FOR STUDY: R92.2 INCONCLUSIVE MAMMOGRAM; RIGHT BREAST R92.2 R92.2 INCONCLUSIVE MAMMOGRAM COMPARISON: 07/15/2020, 07/12/2019, 06/24/2018, 05/11/2017, 04/23/2016. EXAM PARAMETERS: Full field mediolateral and spot compression ML, MLO, and CC projections were obtai jayla. Subsequently, targeted sonographic evaluation was performed. LIMITATIONS: None. FINDINGS: BREAST LATERALITY: right MASSES: Indeterminate findings demonstrated on screening mammography persists with spot compression. Targeted sonographic evaluation reveals an underlying 2.6 by 1.0 by 1.9 cm irregular heterogeneous, predominantly hypoechoic mass. Color Doppler interrogation demonstrates no internal vascularity. CALCIFICATIONS: No new or suspicious calcifications. ARCHITECTURAL DISTORTION: None. ASYMMETRY: None noted. OTHER: No other significant findings. IMPRESSION: Suspicious mass within the right upper outer quadrant. BREAST DENSITY: b. There are scattered areas of fibroglandular density. BIRAD: ASSESSMENT: 4 Suspicious. Biopsy should be performed in the absence of clinical contra-indic ation. RECOMMENDATION: RECOMMENDED FOLLOW UP: Birads 4: Biopsy should be performed in the absence of clinic al contraindication. SPECIFIC INTERVENTION/IMAGING/CONSULTATION RECOMMENDED:The suspicious finding(s) amenable to US guide d core/vacuum assisted biopsy. COMMUNICATION:The imaging findings were discussed with the patient. She is aware that additional adva nced imaging/consultation may be required. Her referring physician has been notified. COMMENT: The patient has been notified of the results by letter per [place] requirements. Additional no tification policies are in place for contacting patient with suspicious or incomplete findings. Quality ID #225: [employer] recommends an annual screening mammogram for women aged 40 years or over. This facility utilizes a reminder system to ensure that all patients receive reminder letters, and/or direct phone calls for appointments. This includes reminders for routine scr eening mammograms, diagnostic mammograms, or other Breast Imaging Interventions when appropriate. Th is patient will be placed in the appropriate reminder system. TECHNICAL DOCUMENTATION: FINDING NUMBER: (1) ASSESSMENT: (1) JOB ID: [id number] 2010 [employer]- All Rights Reserved Reading location - IP/workstation name: [email or web address]
== END ==
LOC: WI 09:52
PROVIDERS: ATTEND Family Medicine
DX: N63.11 Unspecified lump in the right breast, upper outer quadrant (principal)
CPT/HCPCS: 76641; 77065